=== PATIENT | male | born 1975 | race Caucasian/White ===

== ENCOUNTER 2018-05-29 15:30 | Emergency (ER) | payer OTHER ==
[~2018-05-29] VITALS: Ht 175.3 cm; Wt 86.2 kg
[2018-05-29] MEDS ORDERED: METO25 (15:39)
[2018-05-29] MEDS ORDERED: Ventolin/Prove6.7 GM (15:39)
[2018-05-29] MEDS ORDERED: Prinivil10 MG PO (15:39)
[2018-05-29] MEDS ORDERED: QVAR REDIHALE10.6 GM IH (15:40)
[2018-05-29 16:05] LABS: BASOPHILS ABSOLUTE AUTO 0.06 K/mm3 (0.00-0.23); BASOPHILS PERCENT AUTO 1 % (0-2); EOSINOPHILS ABSOLUTE AUTO 0.37 K/mm3 (0.00-0.68); EOSINOPHILS PERCENT AUTO 3 % (0-6); Hematocrit 43.6 % (37.0-53.0); Hemoglobin 15.3 g/dL (13.5-17.5); IMMATURE GRAN ABSOLUTE AUTO 0.08 K/mm3 (0.00-0.10); IMMATURE GRAN PERCENT AUTO 1 % (0-1); LYMPHOCYTES PERCENT AUTO 14 % (21-46); MONOCYTES ABSOLUTE AUTO 0.98 K/mm3 (0.16-1.47); MONOCYTES PERCENT AUTO 8 % (4-13); Mean Corpuscular HGB 34.3 pg (26.0-34.0); Mean Corpuscular HGB Conc 35.1 g/dL (31.5-36.5); Mean Corpuscular Volume 98 fL (80-100); Mean Platelet Volume 9.8 fL (9.1-12.4); NEUTROPHILS ABSOLUTE AUTO 9.35 K/mm3 (1.96-9.15); NEUTROPHILS PERCENT AUTO 75 % (41-73); Platelet Count 217 K/mm3 (150-400); RDW Coefficient Variation 11.7 % (11.7-14.2); RDW Standard Deviation 42.4 fL (35.1-46.3); Red Blood Cell Count 4.46 M/mm3 (4.30-5.90); White Blood Cell Count 12.54 K/mm3 (4.00-11.30)
[2018-05-29 16:21] LABS: Alanine Aminotransfer (ALT/SGP 35 U/L (12-78); Albumin, Blood 4.4 g/dL (3.4-5.0); Albumin/Globulin Ratio 1.3 (0.8-1.8); Alk Phos 99 U/L (50-136); Anion Gap 8 mmol/L (6-16); Aspartate Aminotrans (AST/SGOT 20 U/L (12-37); Bilirubin, Total 0.5 mg/dL (0.1-1.0); Blood Urea Nitrogen 24 mg/dL (8-24); Bun/Creatinine Ratio 25.4 (12.0-20.0); CO2, Blood 24 mmol/L (21-32); Calcium, Blood 9.2 mg/dL (8.5-10.1); Chloride, Blood 104 mmol/L (98-108); Creatinine, Blood 0.95 mg/dL (0.60-1.20); Globulin, Blood 3.4 g/dL (2.2-4.0); Glomerular Filtration Rate >60 (60-); Glucose, Blood 87 mg/dL (70-99); Potassium, Blood 3.9 mmol/L (3.5-5.5); Sodium, Blood 136 mmol/L (136-145); Total Protein, Blood 7.8 g/dL (6.4-8.2)
[2018-05-29 16:32] LABS: Source, Urine Clean Catch
[2018-05-29 16:42] LABS: Appearance, Urine Clear (Clear); Bilirubin, Urine Neg (Neg); Blood, Urine Neg (Neg); Color, Urine Yellow (P-Yellow); Glucose Qualitative, Urine Neg (Neg); Ketones, Urine Neg (Neg); Leukocyte Esterase, Urine Neg (Neg); Nitrite, Urine Neg (Neg); Protein, Urine Neg (Neg); Specific Gravity, Urine 1.015 (1.003-1.022); Urobilinogen, Urine NORM (Normal)
[2018-05-29] MEDS ORDERED: Percocet 5-3251 EACH PO (16:56)
[2018-05-29] MEDS ORDERED: Cipro500 MG PO (16:56)
[2018-05-29] MEDS ORDERED: Flagyl500 MG PO (16:56)
[2018-05-29] MEDS ORDERED: Zofran8 MG PO (16:56)
== END 2018-05-29 17:26 | disposition home or self-care (01) ==
LOC: ER 15:30
PROVIDERS: Emergency Medicine
DX: K57.32 Diverticulitis of large intestine without perforation or abscess without bleeding (principal); I10 Essential (primary) hypertension; J45.909 Unspecified asthma, uncomplicated; Z79.899 Other long term (current) drug therapy; Z79.51 Long term (current) use of inhaled steroids
CPT/HCPCS: 36415; 74177; 80053; 81003; 83690; 85025; 93005; 93010; 96374; 99284-25; J2405; Q9967

== ENCOUNTER → 2020-03-04 | Outpatient (CLI) | payer OTHER ==
[~2020-03-04] MED LIST: Cipro500 MG PO; Flagyl500 MG PO; METO25; Percocet 5-3251 EACH PO; Prinivil10 MG PO; QVAR REDIHALE10.6 GM IH; Ventolin/Prove6.7 GM; Zofran8 MG PO
== END | disposition home or self-care (01) ==
LOC: LAB 09:25 → LAB SHORT 09:25
DX: Z13.29 Encounter for screening for other suspected endocrine disorder (principal); R73.9 Hyperglycemia, unspecified
CPT/HCPCS: 83036; 84443

== ENCOUNTER → 2020-09-16 | Outpatient (CLI) | payer OTHER ==
[~2020-09-16] MED LIST changes: +AMOCLA875 PO; +MELOXICAM TAB 15M; +ONDA4ODT MM; +Roxicodone5 MG PO
[2020-09-17 16:11] LABS: ADENOVIRUS F 40/41 Not Detected (Not Detected); ASTROVIRUS Not Detected (Not Detected); C DIFFICILE TOXIN A/B Not Detected (Not Detected); CRYPTOSPORIDIUM Not Detected (Not Detected); CYCLOSPORA CAYETANENSIS Not Detected (Not Detected); ENTAMOEBA HISTOLYTICA Not Detected (Not Detected); ENTEROAGGREGATIVE E COLI Not Detected (Not Detected); ENTEROPATHOGENIC E COLI Not Detected (Not Detected); ENTEROTOXIGENIC E COLI Not Detected (Not Detected); GIARDIA LAMBLIA Not Detected (Not Detected); NOROVIRUS GI/GII Not Detected (Not Detected); PLESIOMONAS SHIGELLOIDES Not Detected (Not Detected); ROTAVIRUS A Not Detected (Not Detected); SALMONELLA Not Detected (Not Detected); SAPOVIRUS Not Detected (Not Detected); SHIGA-TOXIN-PRODUCING E COLI Not Detected (Not Detected); SHIGELLA/ENTEROINVASIVE E COLI Not Detected (Not Detected); VIBRIO Not Detected (Not Detected); VIBRIO CHOLERAE Not Detected (Not Detected); YERSINIA ENTEROCOLITICA Not Detected (Not Detected)
== END | disposition home or self-care (01) ==
LOC: LAB 08:19
PROVIDERS: Nurse Practitioner
DX: K52.9 Noninfective gastroenteritis and colitis, unspecified (principal)
CPT/HCPCS: 0097U; 83993

== ENCOUNTER 2021-08-18 16:17 | Emergency (ER) | payer SELFPAY ==
[~2021-08-18] VITALS: Ht 175.3 cm; Wt 88.0 kg
[2021-08-18 16:54] LABS: BASOPHILS ABSOLUTE AUTO 0.07 K/mm3 (0.00-0.23); BASOPHILS PERCENT AUTO 1 % (0-2); EOSINOPHILS ABSOLUTE AUTO 0.05 K/mm3 (0.00-0.68); EOSINOPHILS PERCENT AUTO 1 % (0-6); Hematocrit 41.9 % (37.0-53.0); Hemoglobin 14.9 g/dL (13.5-17.5); IMMATURE GRAN ABSOLUTE AUTO 0.05 K/mm3 (0.00-0.10); IMMATURE GRAN PERCENT AUTO 1 % (0-1); LYMPHOCYTES ABSOLUTE AUTO 0.86 K/mm3 (0.84-5.20); LYMPHOCYTES PERCENT AUTO 11 % (21-46); MONOCYTES ABSOLUTE AUTO 0.56 K/mm3 (0.16-1.47); MONOCYTES PERCENT AUTO 7 % (4-13); Mean Corpuscular HGB Conc 35.6 g/dL (31.5-36.5); Mean Corpuscular Volume 98 fL (80-100); Mean Platelet Volume 10.1 fL (9.1-12.4); NEUTROPHILS ABSOLUTE AUTO 6.26 K/mm3 (1.96-9.15); NEUTROPHILS PERCENT AUTO 80 % (41-73); Platelet Count 206 K/mm3 (150-400); RDW Coefficient Variation 12.1 % (11.7-14.2); RDW Standard Deviation 43.9 fL (35.1-46.3); Red Blood Cell Count 4.26 M/mm3 (4.30-5.90); White Blood Cell Count 7.85 K/mm3 (4.00-11.30)
[2021-08-18 17:19] LABS: Albumin/Globulin Ratio 0.9 (0.8-1.8); Bilirubin, Total 1.4 mg/dL (0.1-1.0); Bun/Creatinine Ratio 18.6 (12.0-20.0); Calcium, Blood 9.3 mg/dL (8.5-10.1); Creatinine, Blood 1.56 mg/dL (0.60-1.20); Globulin, Blood 4.4 g/dL (2.2-4.0); Potassium, Blood 4.1 mmol/L (3.5-5.5); Total Protein, Blood 8.4 g/dL (6.4-8.2)
[2021-08-18 17:47] LABS: Influenza A, PCR NEGATIVE (NEGATIVE); Influenza B, PCR NEGATIVE (NEGATIVE); Resp Syncytial Virus, PCR NEGATIVE (NEGATIVE); SARS-Cov-2 (COVID-19) PCR, MMC NEGATIVE (NEGATIVE)
[2021-08-18] MEDS ORDERED: AMOCLA875 PO (21:29)
[2021-08-18] MEDS ORDERED: OXYACE7.5T PO (21:29)
[2021-08-18] MEDS ORDERED: ONDA4ODT MM (21:29)
[2021-08-18] MEDS ORDERED: DICY20 PO (21:29)
== END 2021-08-18 22:20 | disposition home or self-care (01) ==
LOC: ER 16:17
PROVIDERS: Physician Assistant
DX: K52.9 Noninfective gastroenteritis and colitis, unspecified (principal); Z79.899 Other long term (current) drug therapy; F17.200 Nicotine dependence, unspecified, uncomplicated
CPT/HCPCS: 0241U; 36415; 74176; 80053; 83690; 85025; 96374; 96375; 99284-25; A9270; J2405; J3010; J7030

== ENCOUNTER 2021-12-06 00:10 | Inpatient (IN) | payer OTHER ==
[~2021-12-06] VITALS: Ht 175.3 cm; Wt 81.7 kg
[~2021-12-06 00:10] MED LIST changes: +DICY20 PO; +OXYACE7.5T PO
[2021-12-06] MEDS ORDERED: Ventolin/Prove6.7 GM INH (01:07)
[2021-12-06 01:10] LABS: BASOPHILS ABSOLUTE AUTO 0.07 K/mm3 (0.00-0.23); BASOPHILS PERCENT AUTO 1 % (0-2); EOSINOPHILS ABSOLUTE AUTO 0.02 K/mm3 (0.00-0.68); EOSINOPHILS PERCENT AUTO 0 % (0-6); Hematocrit 47.9 % (37.0-53.0); Hemoglobin 17.8 g/dL (13.5-17.5); IMMATURE GRAN ABSOLUTE AUTO 0.12 K/mm3 (0.00-0.10); IMMATURE GRAN PERCENT AUTO 1 % (0-1); LYMPHOCYTES ABSOLUTE AUTO 0.91 K/mm3 (0.84-5.20); LYMPHOCYTES PERCENT AUTO 6 % (21-46); MONOCYTES ABSOLUTE AUTO 1.31 K/mm3 (0.16-1.47); MONOCYTES PERCENT AUTO 9 % (4-13); Mean Corpuscular HGB 36.2 pg (26.0-34.0); Mean Corpuscular HGB Conc 37.2 g/dL (31.5-36.5); Mean Corpuscular Volume 97 fL (80-100); Mean Platelet Volume 9.9 fL (9.1-12.4); NEUTROPHILS ABSOLUTE AUTO 12.31 K/mm3 (1.96-9.15); NEUTROPHILS PERCENT AUTO 84 % (41-73); NRBC ABSOLUTE 0.05 K/mm3 (0.00-0.02); NRBC Auto 0.3 /100 WBC (0.0-0.2); Platelet Count 144 K/mm3 (150-400); RDW Coefficient Variation 13.5 % (11.7-14.2); RDW Standard Deviation 47.8 fL (35.1-46.3); Red Blood Cell Count 4.92 M/mm3 (4.30-5.90); White Blood Cell Count 14.74 K/mm3 (4.00-11.30)
[2021-12-06 01:28] LABS: Alanine Aminotransfer (ALT/SGP 125 U/L (12-78); Albumin, Blood 3.1 g/dL (3.4-5.0); Albumin/Globulin Ratio 0.7 (0.8-1.8); Alk Phos 285 U/L (50-136); Anion Gap 21 mmol/L (6-16); Aspartate Aminotrans (AST/SGOT 290 U/L (12-37); Bilirubin, Total 1.7 mg/dL (0.1-1.0); Blood Urea Nitrogen 2 mg/dL (8-24); Bun/Creatinine Ratio 1.9 (12.0-20.0); CO2, Blood 20 mmol/L (21-32); Calcium, Blood 7.9 mg/dL (8.5-10.1); Chloride, Blood 80 mmol/L (98-108); Creatinine, Blood 1.07 mg/dL (0.60-1.20); Globulin, Blood 4.2 g/dL (2.2-4.0); Glomerular Filtration Rate >60 (60-); Glucose, Blood 199 mg/dL (70-99); Magnesium, Blood 1.7 mg/dL (1.6-2.4); Potassium, Blood 2.8 mmol/L (3.5-5.5); Sodium, Blood 121 mmol/L (136-145); Total Protein, Blood 7.3 g/dL (6.4-8.2)
[2021-12-06 04:15] LABS: Amylase, Blood 42 U/L (25-115); Lactate Dehydrogenase (Ld),Bld 418 U/L (100-240)
[2021-12-06 06:16] LABS: BASOPHILS ABSOLUTE AUTO 0.04 K/mm3 (0.00-0.23); BASOPHILS PERCENT AUTO 0 % (0-2); EOSINOPHILS PERCENT AUTO 0 % (0-6); Hematocrit 45.3 % (37.0-53.0); Hemoglobin 16.8 g/dL (13.5-17.5); IMMATURE GRAN ABSOLUTE AUTO 0.07 K/mm3 (0.00-0.10); IMMATURE GRAN PERCENT AUTO 1 % (0-1); LYMPHOCYTES ABSOLUTE AUTO 0.89 K/mm3 (0.84-5.20); LYMPHOCYTES PERCENT AUTO 7 % (21-46); MONOCYTES ABSOLUTE AUTO 1.09 K/mm3 (0.16-1.47); MONOCYTES PERCENT AUTO 8 % (4-13); Mean Corpuscular HGB 35.9 pg (26.0-34.0); Mean Corpuscular HGB Conc 37.1 g/dL (31.5-36.5); Mean Corpuscular Volume 97 fL (80-100); Mean Platelet Volume 10.7 fL (9.1-12.4); NEUTROPHILS ABSOLUTE AUTO 11.44 K/mm3 (1.96-9.15); NEUTROPHILS PERCENT AUTO 85 % (41-73); NRBC ABSOLUTE 0.04 K/mm3 (0.00-0.02); NRBC Auto 0.3 /100 WBC (0.0-0.2); Platelet Count 124 K/mm3 (150-400); RDW Coefficient Variation 13.7 % (11.7-14.2); RDW Standard Deviation 48.5 fL (35.1-46.3); Red Blood Cell Count 4.68 M/mm3 (4.30-5.90); White Blood Cell Count 13.53 K/mm3 (4.00-11.30)
[2021-12-06 06:35] LABS: Alanine Aminotransfer (ALT/SGP 120 U/L (12-78); Albumin, Blood 2.8 g/dL (3.4-5.0); Albumin/Globulin Ratio 0.8 (0.8-1.8); Alk Phos 260 U/L (50-136); Anion Gap 17 mmol/L (6-16); Aspartate Aminotrans (AST/SGOT 307 U/L (12-37); Bilirubin, Total 2.4 mg/dL (0.1-1.0); Blood Urea Nitrogen 3 mg/dL (8-24); Bun/Creatinine Ratio 3.5 (12.0-20.0); CO2, Blood 24 mmol/L (21-32); Calcium, Blood 8.2 mg/dL (8.5-10.1); Chloride, Blood 84 mmol/L (98-108); Creatinine, Blood 0.85 mg/dL (0.60-1.20); Globulin, Blood 3.6 g/dL (2.2-4.0); Glomerular Filtration Rate >60 (60-); Glucose, Blood 144 mg/dL (70-99); Sodium, Blood 125 mmol/L (136-145); Total Protein, Blood 6.4 g/dL (6.4-8.2)
[2021-12-06 06:45] LABS: CHOL/HDL RATIO 7.4; Cholesterol 201 mg/dL (50-200); HDL Cholesterol 27 mg/dL (>39); LDL/HDL RATIO 4.6; Low Density Lipoprotein Chol 125 mg/dL (0-110); Triglycerides 244 mg/dL (30-160); Very Low Density Lipoprot Chol 48 mg/dL (6-32)
[2021-12-06 13:26] LABS: Source, Urine Clean Catch
[2021-12-06 13:31] LABS: Blood, Urine 1+ (Neg); Glucose Qualitative, Urine Neg (Neg); Ketones, Urine Neg (Neg); Leukocyte Esterase, Urine 1+ (Neg); Nitrite, Urine Neg (Neg); Protein, Urine 2+ (Neg); Urobilinogen, Urine 2+ (Normal)
[2021-12-06 13:45] LABS: Appearance, Urine Hazy (Clear); Bilirubin, Urine 1+ (Neg); Color, Urine Amber (P-Yellow)
[2021-12-06 13:47] LABS: Bacteria Mod /hpf; Squamous Epithelial Cells Few /hpf (Few)
[2021-12-06 13:57] LABS: U Amphetamine Screen Not Detected; U Barbituate Screen Not Detected; U Benzodiazapine Screen Not Detected; U Buprenorphine Screen Not Detected; U Cannabinoids Screen DETECTED; U Cocaine Screen Not Detected; U Methadone Screen Not Detected; U Methamphetamine Screen Not Detected; U Opiates Screen DETECTED; U Oxycodone Screen Not Detected; U Phencyclidine Screen Not Detected; U Propoxyphene Screen Not Detected
--- NOTE | 2021-12-06 16:04 | NUR ---
PATIENT IS A AND O 4X AND HAS PAIN MANAGED WELL WITH MORPHINE. PATIENT IS CURRENTLY NOT WITHDRAWLING FROM ETHO CIWA 0 LAST DRINK 1800 12/05/21
--- NOTE | 2021-12-06 16:27 | NUR ---
CALLED DR. PAZ KEMP PATIENT DRY EYES. ORDERED ARTIFICIAL 1-2 DROPS TEARS Q4H PRN DRY EYES.
[2021-12-07 05:33] LABS: Hematocrit 42.7 % (37.0-53.0); Hemoglobin 15.5 g/dL (13.5-17.5); Mean Corpuscular HGB 36.5 pg (26.0-34.0); Mean Corpuscular HGB Conc 36.3 g/dL (31.5-36.5); Mean Corpuscular Volume 101 fL (80-100); Mean Platelet Volume 9.6 fL (9.1-12.4); NRBC ABSOLUTE 0.02 K/mm3 (0.00-0.02); NRBC Auto 0.2 /100 WBC (0.0-0.2); Platelet Count 106 K/mm3 (150-400); RDW Standard Deviation 51.8 fL (35.1-46.3); Red Blood Cell Count 4.25 M/mm3 (4.30-5.90); White Blood Cell Count 8.78 K/mm3 (4.00-11.30)
[2021-12-07 06:13] LABS: Alanine Aminotransfer (ALT/SGP 98 U/L (12-78); Albumin, Blood 2.8 g/dL (3.4-5.0); Albumin/Globulin Ratio 0.8 (0.8-1.8); Alk Phos 221 U/L (50-136); Anion Gap 10 mmol/L (6-16); Aspartate Aminotrans (AST/SGOT 230 U/L (12-37); Bilirubin, Total 2.5 mg/dL (0.1-1.0); Blood Urea Nitrogen 7 mg/dL (8-24); Bun/Creatinine Ratio 14.3 (12.0-20.0); CO2, Blood 26 mmol/L (21-32); Calcium, Blood 7.9 mg/dL (8.5-10.1); Chloride, Blood 93 mmol/L (98-108); Creatinine, Blood 0.49 mg/dL (0.60-1.20); Globulin, Blood 3.4 g/dL (2.2-4.0); Glomerular Filtration Rate >60 (60-); Glucose, Blood 103 mg/dL (70-99); Potassium, Blood 2.9 mmol/L (3.5-5.5); Sodium, Blood 129 mmol/L (136-145); Total Protein, Blood 6.2 g/dL (6.4-8.2)
--- NOTE | 2021-12-07 06:34 | NUR ---
SHIFT SUMMARY ADMITTED FOR PANCREATITIS. AOX4. FOLLOWS DIRECTIONS. ROUGHLY HAD 20MIN OF SLEEP & HAS BEEN AWAKE ALL NIGHT. DAILY DRINKER, ASSESSING CIWAS, RANGING 6-15. HAS TREMORS TO BUE. RESTLESS, PACING IN RM, ANXIOUS ABOUT CURRENT HEALTH SITUATION. RAPID SPEECH, ASKS MANY QUESTIONS. MEDICATED c 25MG SCHEDULED LIBRIUM & PRN LIBRIUM & PT STILL UNABLE TO REST OR RELAX, MEDICATED c 1MG ATIVAN THIS AM. REPORTED 9/10 PAIN IN LUQ ABD & TENDERNESS c PALPATION, MEDICATED 1X c 5MG IV MORPHINE & PT REPORTED PAIN DECREASED TO 3/10. HAS BEEN NPO, REPORTS BELCHING & BLOATED FEELING, DENIES ANY N/V/D. STATES HE HOPES TO ADVANCE HIS DIET TODAY FOR HE FEELS HUNGRY. HAD DARK ORANGE COLOR URINE. REPORTS FEELING "WHEEZY" LS DIM c SCATTERED EXP WHEEZES, HX ASTHMA, ALBUTEROL INHALER GIVEN PER RT. SPO2 >90% ON RA. CALL LIGHT IN REACH. WCTM.
--- NOTE | 2021-12-07 10:43 | NUR ---
palliative care consult cancelled by provider.
--- NOTE | 2021-12-07 12:28 | NUR ---
PT GOT SEVERLY CONFUSED WHEN WOKEN UP THIS AM. PATIENT WAS A AND 0 TO ONLY SELF. PATIENT HAD HIGH CIWA OF 20. PATIENTS CIWA IS MORE MANAGED AT THIS TIME. PATIENT FOLLOWS COMMANDS AND IS REORIENTABLE. PATIENT NOW A AND 0 3X. PATIENTS ABDOMNIAL PAIN IS CONSISTANT BUT IMPROVED COMPARED TO YESTERDAY.
[2021-12-07 14:16] LABS: Potassium, Blood 3.2 mmol/L (3.5-5.5)
--- NOTE | 2021-12-08 05:12 | NUR ---
SHIFT SUMMARY CONTINUED Q4 CIWA ASSESSMENT DURING THIS SHIFT. PATIENT REMAINED A/OX4 THROUGHOUT SHIFT- PT EXPERIENCED INCREASED CONFUSION THIS MORNING POST ADMINISTRATION OF IV ATIVAN,SUCCESSFUL REOREINTING INDEPENDEDNT/AMBULATORY- REQUIRES OCCASSIONAL VERBAL QUE'S FOR IV TUBING POSITIONING WHEN AMBULATING.
[2021-12-08 05:36] LABS: BASOPHILS ABSOLUTE AUTO 0.06 K/mm3 (0.00-0.23); BASOPHILS PERCENT AUTO 1 % (0-2); EOSINOPHILS ABSOLUTE AUTO 0.09 K/mm3 (0.00-0.68); EOSINOPHILS PERCENT AUTO 1 % (0-6); Hematocrit 42.2 % (37.0-53.0); Hemoglobin 14.6 g/dL (13.5-17.5); IMMATURE GRAN ABSOLUTE AUTO 0.05 K/mm3 (0.00-0.10); IMMATURE GRAN PERCENT AUTO 1 % (0-1); LYMPHOCYTES PERCENT AUTO 14 % (21-46); MONOCYTES ABSOLUTE AUTO 0.58 K/mm3 (0.16-1.47); MONOCYTES PERCENT AUTO 7 % (4-13); Mean Corpuscular HGB 36.2 pg (26.0-34.0); Mean Corpuscular HGB Conc 34.6 g/dL (31.5-36.5); Mean Corpuscular Volume 105 fL (80-100); Mean Platelet Volume 10.2 fL (9.1-12.4); NEUTROPHILS ABSOLUTE AUTO 5.91 K/mm3 (1.96-9.15); NEUTROPHILS PERCENT AUTO 76 % (41-73); Platelet Count 112 K/mm3 (150-400); RDW Coefficient Variation 14.5 % (11.7-14.2); RDW Standard Deviation 56.7 fL (35.1-46.3); Red Blood Cell Count 4.03 M/mm3 (4.30-5.90); White Blood Cell Count 7.79 K/mm3 (4.00-11.30)
[2021-12-08 05:59] LABS: Alanine Aminotransfer (ALT/SGP 107 U/L (12-78); Albumin, Blood 2.7 g/dL (3.4-5.0); Albumin/Globulin Ratio 0.8 (0.8-1.8); Alk Phos 210 U/L (50-136); Anion Gap 11 mmol/L (6-16); Aspartate Aminotrans (AST/SGOT 327 U/L (12-37); Bilirubin, Total 2.8 mg/dL (0.1-1.0); Blood Urea Nitrogen 7 mg/dL (8-24); Bun/Creatinine Ratio 13.3 (12.0-20.0); CO2, Blood 24 mmol/L (21-32); Calcium, Blood 7.9 mg/dL (8.5-10.1); Chloride, Blood 101 mmol/L (98-108); Creatinine, Blood 0.53 mg/dL (0.60-1.20); Globulin, Blood 3.5 g/dL (2.2-4.0); Glomerular Filtration Rate >60 (60-); Glucose, Blood 70 mg/dL (70-99); Magnesium, Blood 1.8 mg/dL (1.6-2.4); Potassium, Blood 3.2 mmol/L (3.5-5.5); Sodium, Blood 136 mmol/L (136-145); Total Protein, Blood 6.2 g/dL (6.4-8.2)
--- NOTE | 2021-12-08 17:47 | NUR ---
SHIFT SUMMARY PATIENT IS ALERT AND ORIENTED X3 PLEASANT AND COOPERATIVE WITH CARE. FORGETFUL OF SITUATION AT TIMES. THE PATIENT WAS ABLE TO SLEEP A LOT OF THE AFTERNOON. LIBRIUM AND ATIVAN GIVEN PER MAR FOR ANXIETY AND WITHDRAWL. THE PATIENT HAS BEEN TOLERATING THE CLEAR LIQUID DIET THUS FAR. HIGHEST CIWA OF 11 THIS SHIFT. MEDICATED FOR PAIN X2. NO ACUTE CHANGES THIS SHIFT. VSS. SPOUSE AT BEDSIDE. THIS NURSE WILL CONTINUE TO CARE FOR THE PATIENT UNTIL SHIFT REPORT IS GIVEN TO ONCOMING NURSE.
[2021-12-09 05:23] LABS: Hematocrit 37.7 % (37.0-53.0); Hemoglobin 13.4 g/dL (13.5-17.5); Mean Corpuscular HGB 35.8 pg (26.0-34.0); Mean Corpuscular HGB Conc 35.5 g/dL (31.5-36.5); Mean Corpuscular Volume 101 fL (80-100); Mean Platelet Volume 10.2 fL (9.1-12.4); Platelet Count 128 K/mm3 (150-400); RDW Coefficient Variation 14.6 % (11.7-14.2); RDW Standard Deviation 55.1 fL (35.1-46.3); Red Blood Cell Count 3.74 M/mm3 (4.30-5.90); White Blood Cell Count 5.99 K/mm3 (4.00-11.30)
--- NOTE | 2021-12-09 05:40 | NUR ---
SHIFT SUMMARY PT IS A 46 Y/O MALE, ADMITTED FOR PANCREATITS WITH A HX OF ETOH ABUSE. PT IS A&O X 2 CONFUSED AND FORGETFUL AT TIMES. PT SLEPT INTERMITTENTLY THROUGH THE NIGHT, AND WANDERED OUT OF HIS ROOM ACTING CONFUSED MULTIPLE TIMES, UNCLEAR IF PT WAS DREAMING OR HALLUCINATING. CIWA AT 8, MEDICATED ONCE WITH PRN LIBRIUM. VITAL SIGNS STABLE. NO C/O ACUTE PAIN, NAUSEA OR SOB. NO ACUTE CHANGES IN PT CONDITION NOTED DURING THE NIGHT. WILL CONTINUE TO MONITOR AND TREAT PER EMAR UNTIL HAND OFF TO DAY SHIFT RN.
[2021-12-09 05:57] LABS: Alanine Aminotransfer (ALT/SGP 91 U/L (12-78); Albumin, Blood 2.3 g/dL (3.4-5.0); Albumin/Globulin Ratio 0.8 (0.8-1.8); Alk Phos 200 U/L (50-136); Anion Gap 7 mmol/L (6-16); Aspartate Aminotrans (AST/SGOT 258 U/L (12-37); Bilirubin, Total 2.8 mg/dL (0.1-1.0); Blood Urea Nitrogen 3 mg/dL (8-24); Bun/Creatinine Ratio 5.8 (12.0-20.0); CO2, Blood 26 mmol/L (21-32); Calcium, Blood 8.1 mg/dL (8.5-10.1); Chloride, Blood 104 mmol/L (98-108); Creatinine, Blood 0.51 mg/dL (0.60-1.20); Globulin, Blood 2.9 g/dL (2.2-4.0); Glomerular Filtration Rate >60 (60-); Glucose, Blood 102 mg/dL (70-99); Potassium, Blood 3.5 mmol/L (3.5-5.5); Sodium, Blood 137 mmol/L (136-145); Total Protein, Blood 5.2 g/dL (6.4-8.2)
[2021-12-09] MEDS ORDERED: CHLO10 PO (11:01)
[2021-12-09] MEDS ORDERED: PANT40 PO (11:01)
[2021-12-09] MEDS ORDERED: Seroquel Xr50 MG PO (11:02)
[2021-12-09] MEDS ORDERED: CEFD300 PO (11:02)
--- NOTE | 2021-12-09 11:41 | NUR ---
SHIFT SUMMARY PATIENT DISCHARGED HOME. DISCHARGE PAPERWORK REVIEWED WITH PATIENT AND ALL QUESTIONS ANSWERED. NEW MEDICATIONS REVIEWED WITH PATIENT BY PHARMACIST. PRESCRIPTIONS FAXED TO PTIENTS PREFERRED [facility] AND HARD SCRIPT FOR LIBRIUM GIVEN TO PATIENT.
== END 2021-12-09 11:43 | disposition home or self-care (01) | DRG 871 ==
LOC: ER 00:10 → MEDS 03:50 → ERHOLD 03:50 → MEDS 13:08 → ENPENDDIS 12-09 10:40 → MEDS 12-09 11:43
PROVIDERS: Family Medicine; Internal Medicine; Student in an Organized Health Care Education/Training Program; ADMIT Internal Medicine
PROC: HZ2ZZZZ Detoxification Services for Substance Abuse Treatment (ICD-10-PCS; principal; 2021-12-06)
DX: A41.9 Sepsis, unspecified organism (principal); K85.90 Acute pancreatitis without necrosis or infection, unspecified; G93.41 Metabolic encephalopathy; E87.2 Acidosis; E87.1 Hypo-osmolality and hyponatremia; F10.231 Alcohol dependence with withdrawal delirium; Z53.29 Procedure and treatment not carried out because of patient's decision for other reasons; K81.9 Cholecystitis, unspecified; E86.0 Dehydration; R45.1 Restlessness and agitation; F17.200 Nicotine dependence, unspecified, uncomplicated; I95.2 Hypotension due to drugs; E87.6 Hypokalemia; F10.20 Alcohol dependence, uncomplicated; K76.0 Fatty (change of) liver, not elsewhere classified; I10 Essential (primary) hypertension; J45.909 Unspecified asthma, uncomplicated; Z91.14 Patient's other noncompliance with medication regimen; Z98.890 Other specified postprocedural states; Z86.16 Personal history of COVID-19; Z90.49 Acquired absence of other specified parts of digestive tract; Z79.899 Other long term (current) drug therapy
CPT/HCPCS: 36415; 71045; 74177; 74181; 76705; 80051; 80053; 80061; 81001; 82150; 83605; 83615; 83690; 83735; 84145; 85025; 85027; 87086; 93005; 93010; 94640; 94664; 94760; 94762; 96365; 96366; 96372; 96375; 99285-25; A9270; C9113; J0696; J1650; J2060; J2270; J3475; J3480; J7030; J7050; J7120; Q9967

== ENCOUNTER 2021-12-25 21:53 | Inpatient (IN) | payer OTHER ==
[~2021-12-25] VITALS: Ht 175.3 cm; Wt 99.5 kg
[~2021-12-25 21:53] MED LIST changes: +CEFD300 PO; +CHLO10 PO; +PANT40 PO; +Seroquel Xr50 MG PO; +Ventolin/Prove6.7 GM INH
[2021-12-25 22:57] LABS: BASOPHILS ABSOLUTE AUTO 0.07 K/mm3 (0.00-0.23); BASOPHILS PERCENT AUTO 1 % (0-2); EOSINOPHILS ABSOLUTE AUTO 0.24 K/mm3 (0.00-0.68); EOSINOPHILS PERCENT AUTO 2 % (0-6); Hematocrit 40.4 % (37.0-53.0); Hemoglobin 13.9 g/dL (13.5-17.5); IMMATURE GRAN ABSOLUTE AUTO 0.06 K/mm3 (0.00-0.10); IMMATURE GRAN PERCENT AUTO 1 % (0-1); LYMPHOCYTES ABSOLUTE AUTO 1.25 K/mm3 (0.84-5.20); LYMPHOCYTES PERCENT AUTO 12 % (21-46); MONOCYTES ABSOLUTE AUTO 0.67 K/mm3 (0.16-1.47); MONOCYTES PERCENT AUTO 7 % (4-13); Mean Corpuscular HGB 35.6 pg (26.0-34.0); Mean Corpuscular HGB Conc 34.4 g/dL (31.5-36.5); Mean Corpuscular Volume 104 fL (80-100); Mean Platelet Volume 9.8 fL (9.1-12.4); NEUTROPHILS ABSOLUTE AUTO 8.06 K/mm3 (1.96-9.15); NEUTROPHILS PERCENT AUTO 78 % (41-73); Platelet Count 237 K/mm3 (150-400); RDW Standard Deviation 61.6 fL (35.1-46.3); White Blood Cell Count 10.35 K/mm3 (4.00-11.30)
[2021-12-25 23:15] LABS: Alanine Aminotransfer (ALT/SGP 76 U/L (12-78); Albumin, Blood 2.7 g/dL (3.4-5.0); Albumin/Globulin Ratio 0.7 (0.8-1.8); Alk Phos 361 U/L (50-136); Anion Gap 12 mmol/L (6-16); Aspartate Aminotrans (AST/SGOT 247 U/L (12-37); Blood Urea Nitrogen 1 mg/dL (8-24); CO2, Blood 22 mmol/L (21-32); Calcium, Blood 8.7 mg/dL (8.5-10.1); Chloride, Blood 108 mmol/L (98-108); Creatinine, Blood 0.34 mg/dL (0.60-1.20); Ethanol (Alcohol), Blood, Med 173 mg/dL; Globulin, Blood 3.8 g/dL (2.2-4.0); Glomerular Filtration Rate >60 (60-); Glucose, Blood 194 mg/dL (70-99); Potassium, Blood 3.6 mmol/L (3.5-5.5); Sodium, Blood 142 mmol/L (136-145); Total Protein, Blood 6.5 g/dL (6.4-8.2)
[2021-12-26 00:24] LABS: International Normalized Ratio 1.38; Prothrombin Time Results 14.2 Sec (9.7-11.5)
--- NOTE | 2021-12-26 07:45 | NUR ---
ASSUMED CARE: REPORT RECEIVED FROM SHABBIR Smith RN. ASSUMED CARE OF THIS PT AT APPROX 0700. ON ASSESSMENT, THE PT IS AWAKE, A&O TO SELF, FOLLOWING DIRECTIONS & PLACE. INTERMITTENTLY FORGETFUL, REPEATEDLY ASKING THE SAME QUESTIONS. CIWA 14 ON ASSESSMENT MOSTLY R/T TREMULOUSNESS & INCREASED ANXIETY. LS WHEEZING IN UPPER LOBES, PT STS USING AN INHALER & NEBULIZERS AT HOME. CURRENTLY ON RA W/ O2 SATS > 95%. MONITOR SHOWS ST W/ HR 110-120s, HTN 180s/150s. AM DOSE OF METOPROLOL GIVEN EARLY R/T THIS. PT STS TAKING ONLY 12.5 MG METOPROLOL TARTRATE AT HOME, 12.5 MG GIVEN BY THIS RN. WILL ADDRESS W/ PROVIDER. ABDOMEN IS SEVERELY DISTENDED & TENDER TO PALPATION, PT STS PAIN HAS DECREASED SINCE RECEIVING FENTANYL PER EMAR. PARACENTESIS PERFORMED IN ED WAS DIAGNOSTIC ONLY W/ SPECIMEN SENT TO LAB. PT VOIDS URINE W/O DIFFICULTY, URINAL AT BEDSIDE. SKIN CONDITION OVERALL INTACT, DIAPHORESIS INCREASED W/ ANXIETY. PT ABLE TO REPOSITION SELF PRN FOR COMFORT & TO MAINTAIN SKIN INTEGRITY. WILL CONTINUE TO MONITOR & UPDATE NEEDED.
--- NOTE | 2021-12-26 09:56 | NUR ---
DR Scooter ASH: PROVIDER AT BEDSIDE THIS AM TO EVAL PT. BD PROTOCOL ORDERED & METOPROLOL TARTRATE DOSE DECREASED TO 12.5 MG BID. PT OKAY FOR CLEAR LIQUID DIET TOLERATED W/ ABD PAIN. THIS RN HELD AM DOSE OF LOVENOX R/T POSSIBILITY OF PARACENTESIS TODAY & PT's HIGH PROTHROMBIN TIME AT BASELINE. THE PROVIDER IS AGREEABLE TO THIS, WOULD LIKE SCDs PLACED & PLANS TO ORDERS FOR A THERAPEUTIC PARACENTESIS THIS SHIFT.
[2021-12-26 12:04] LABS: BASOPHILS ABSOLUTE AUTO 0.07 K/mm3 (0.00-0.23); BASOPHILS PERCENT AUTO 1 % (0-2); EOSINOPHILS PERCENT AUTO 1 % (0-6); Hematocrit 38.2 % (37.0-53.0); Hemoglobin 13.2 g/dL (13.5-17.5); IMMATURE GRAN ABSOLUTE AUTO 0.05 K/mm3 (0.00-0.10); IMMATURE GRAN PERCENT AUTO 0 % (0-1); LYMPHOCYTES ABSOLUTE AUTO 0.72 K/mm3 (0.84-5.20); LYMPHOCYTES PERCENT AUTO 6 % (21-46); MONOCYTES ABSOLUTE AUTO 0.76 K/mm3 (0.16-1.47); MONOCYTES PERCENT AUTO 7 % (4-13); Mean Corpuscular HGB 36.1 pg (26.0-34.0); Mean Corpuscular HGB Conc 34.6 g/dL (31.5-36.5); Mean Corpuscular Volume 104 fL (80-100); Mean Platelet Volume 10.2 fL (9.1-12.4); NEUTROPHILS ABSOLUTE AUTO 9.94 K/mm3 (1.96-9.15); NEUTROPHILS PERCENT AUTO 85 % (41-73); NRBC ABSOLUTE 0.02 K/mm3 (0.00-0.02); NRBC Auto 0.2 /100 WBC (0.0-0.2); Platelet Count 179 K/mm3 (150-400); RDW Coefficient Variation 15.9 % (11.7-14.2); Red Blood Cell Count 3.66 M/mm3 (4.30-5.90); White Blood Cell Count 11.64 K/mm3 (4.00-11.30)
[2021-12-26 12:23] LABS: Alanine Aminotransfer (ALT/SGP 67 U/L (12-78); Albumin, Blood 2.5 g/dL (3.4-5.0); Albumin/Globulin Ratio 0.7 (0.8-1.8); Alk Phos 313 U/L (50-136); Anion Gap 11 mmol/L (6-16); Aspartate Aminotrans (AST/SGOT 229 U/L (12-37); Bilirubin, Total 1.4 mg/dL (0.1-1.0); Blood Urea Nitrogen 2 mg/dL (8-24); Bun/Creatinine Ratio 5.9 (12.0-20.0); CO2, Blood 25 mmol/L (21-32); Calcium, Blood 8.3 mg/dL (8.5-10.1); Chloride, Blood 105 mmol/L (98-108); Creatinine, Blood 0.34 mg/dL (0.60-1.20); Globulin, Blood 3.5 g/dL (2.2-4.0); Glomerular Filtration Rate >60 (60-); Glucose, Blood 127 mg/dL (70-99); Potassium, Blood 4.4 mmol/L (3.5-5.5); Sodium, Blood 141 mmol/L (136-145)
--- NOTE | 2021-12-26 12:30 | NUR ---
ABDOMINAL ULTRASOUND: BEDSIDE US PERFORMED & IT IS DETERMINED THAT THE PT DOES NOT HAVE ENOUGH ASCITED ACCUMULATED TO SAFELY PERFORM A PARACENTESIS AT THIS TIME. THIS RN HAS UPDATED DR CHAVIRA ON THIS ISSUE.
--- NOTE | 2021-12-26 17:20 | NUR ---
SHIFT SUMMARY: NO ACUTE CHANGES SINCE PRIOR UPDATES. PT REMAINS A&O, PLEASANT & COOPERATIVE, HAS BEEN LESS FORGETFUL THIS AFTERNOON. TREMULOUSNESS & ANXIETY ALSO IMPROVED SLIGHTLY. BED ALARM REMAINS ON THE PT IS SOMEWHAT IMPULSIVE & WANTS TO WALK AROUND THE ROOM LIKE HE "WOULD NORMALLY." LS ARE WHEEZING IN UPPER LOBES AT TIMES, NEBS & INHALER USED PRN TODAY. CURRENTLY ON RA W/ O2 SATS > 95%. MONITOR SHOWS SR-ST W/ HR 90-110s, HTN PERSISTANT W/ DBP 90-100s. PT TOLERATING SMALL AMNTS OF CLEAR LIQUID PO INTAKE W/ MINIMAL INCREASE TO ABD PAIN LEVEL, MEDS GIVEN PER EMAR. HE VOIDS W/O DIFFICULTY USING THE URINAL AT BEDSIDE. SKIN CONDITION OVERALL INTACT, PT REPOSITIONS SELF W/O DIFFICULTY FOR COMFORT & TO MAINTAIN SKIN INTEGRITY. WILL CONTINUE TO MONITOR & REPORT OFF TO ONCOMING RN.
--- NOTE | 2021-12-26 19:30 | NUR ---
Assumed care after report recv'd. assessment complete. lungs clear bilat. states legs and feet aching from edema. advised can try using SCDs for circulation, agrees to try. Continues with severe tremors. Mild anxiety.
--- NOTE | 2021-12-26 22:40 | NUR ---
Up to side of bed to urinate with assistance. becomes short of breath with audible wheezes. becomes very anxious stating "I need my inhaler, I can't breath" Inhaler used per eMAR. RT called to advise.
[2021-12-27 03:32] LABS: BASOPHILS ABSOLUTE AUTO 0.07 K/mm3 (0.00-0.23); BASOPHILS PERCENT AUTO 1 % (0-2); EOSINOPHILS ABSOLUTE AUTO 0.25 K/mm3 (0.00-0.68); EOSINOPHILS PERCENT AUTO 3 % (0-6); Hematocrit 36.2 % (37.0-53.0); Hemoglobin 12.7 g/dL (13.5-17.5); IMMATURE GRAN ABSOLUTE AUTO 0.04 K/mm3 (0.00-0.10); IMMATURE GRAN PERCENT AUTO 0 % (0-1); LYMPHOCYTES ABSOLUTE AUTO 1.24 K/mm3 (0.84-5.20); LYMPHOCYTES PERCENT AUTO 13 % (21-46); MONOCYTES ABSOLUTE AUTO 0.68 K/mm3 (0.16-1.47); MONOCYTES PERCENT AUTO 7 % (4-13); Mean Corpuscular HGB 36.6 pg (26.0-34.0); Mean Corpuscular HGB Conc 35.1 g/dL (31.5-36.5); Mean Corpuscular Volume 104 fL (80-100); Mean Platelet Volume 10.5 fL (9.1-12.4); NEUTROPHILS ABSOLUTE AUTO 7.03 K/mm3 (1.96-9.15); NEUTROPHILS PERCENT AUTO 76 % (41-73); NRBC ABSOLUTE 0.02 K/mm3 (0.00-0.02); NRBC Auto 0.2 /100 WBC (0.0-0.2); Platelet Count 178 K/mm3 (150-400); RDW Coefficient Variation 15.9 % (11.7-14.2); RDW Standard Deviation 61.1 fL (35.1-46.3); Red Blood Cell Count 3.47 M/mm3 (4.30-5.90); White Blood Cell Count 9.31 K/mm3 (4.00-11.30)
[2021-12-27 03:56] LABS: Alanine Aminotransfer (ALT/SGP 53 U/L (12-78); Albumin, Blood 2.2 g/dL (3.4-5.0); Albumin/Globulin Ratio 0.7 (0.8-1.8); Alk Phos 257 U/L (50-136); Anion Gap 8 mmol/L (6-16); Aspartate Aminotrans (AST/SGOT 172 U/L (12-37); Blood Urea Nitrogen 1 mg/dL (8-24); Bun/Creatinine Ratio 2.6 (12.0-20.0); CO2, Blood 27 mmol/L (21-32); Calcium, Blood 7.7 mg/dL (8.5-10.1); Chloride, Blood 103 mmol/L (98-108); Creatinine, Blood 0.39 mg/dL (0.60-1.20); Globulin, Blood 3.3 g/dL (2.2-4.0); Glomerular Filtration Rate >60 (60-); Glucose, Blood 118 mg/dL (70-99); Potassium, Blood 3.5 mmol/L (3.5-5.5); Sodium, Blood 138 mmol/L (136-145); Total Protein, Blood 5.5 g/dL (6.4-8.2)
--- NOTE | 2021-12-27 06:17 | NUR ---
tremors improving through night, medicated per eMAR for CIWA. Increase in edema to lower extremities, patient feels abd edema improved slightly. Pain improving, medicated as needed per eMAR. periods of brief disorientation upon waking but quickly reorients. assisted to bedside for urination and assisted with standing. more steady this am than at beginning of shift, still requires minimal assistance with walker for balance.
--- NOTE | 2021-12-27 08:30 | NUR ---
DR Layne ASH: PROVIDER AT BEDSIDE THIS AM TO EVAL PT. DISCUSSED PT's INCREASED SWELLING & "ACHING" TO BLE THIS AM. PROVIDER WILL REVIEW CHART & LIKELY ORDER LASIX FOR DIURESIS. HE ALSO STS THAT THE PT IS OKAY TO BE TRANSFERRED TO MEDICAL W/ TELE STATUS, R/T LOW CIWA SCORES & NO ATIVAN GIVEN DURING THE NIGHT.
--- NOTE | 2021-12-27 08:45 | NUR ---
ASSUMED CARE: REPORT RECEIVED FROM SHABBIR Smith RN. ASSUMED CARE OF THIS PT AT APPROX 0700. ON ASSESSMENT, THE PT IS AWAKE, A&O TO ALL, CALM & COOPERATIVE W/ CARE. CIWA SCORES LOW THROUGH NIGHT W/ NO PRN ATIVAN GIVEN. LS CLEAR, PT ON RA W/ O2 SATS > 95%. MONITOR SHOWS ST W/ HR 100s, HTN W/ SCHEDULED AM MEDS PER EMAR. PT TOLERATING SMALL-MOD AMNTS OF CLEAR LIQUID INTAKE W/ SLIGHT INCREASE IN ABD PAIN, MEDS PER EMAR. VOIDS URINE W/O DIFFICULTY USING URINAL. SKIN CONDITION OVERALL INTACT & PT ABLE TO REPOSITION SELF FOR COMFORT/ TO MAINTAIN SKIN INTEGRITY. WILL CONTINUE TO MONITOR & UPDATE NEEDED.
--- NOTE | 2021-12-27 17:38 | NUR ---
SHIFT SUMMARY: NO ACUTE CHANGES SINCE PRIOR UPDATES. PT REMAINS A&O, PLEASANT & COOPERATIVE. CIWA SCORES 3-4 TODAY W/ PT REQUESTING DOSE OF LIBRIUM x1, NO PRN ATIVAN GIVEN. LS CLEAR T/O, PT ON RA W/ O2 SATS > 95%. MONITOR SHOWS SR-ST W/ HR 90-100s, HTN INCREASED W/ EXERTION. PT TOLERATING MOD AMNTS OF CLEAR LIQUID PO INTAKE. STS INCREASED ABD PAIN IF EATS MEAL "TOO FAST." PRN MEDS PER EMAR FOR PAIN MANAGEMENT. DIET ORDER UPGRADED THIS EVENING TO LOW FAT AT PT REQUEST, PROVIDER OKAY W/ ADVANCING TOLERATED. VOIDS URINE W/O DIFFICULTY USING URINAL AT BEDSIDE. PT HAS DIURESED WELL AFTER LASIX ADMIN PER EMAR, STS HAVING SOME PAIN R/T SWELLING OF BILATERAL FEET/ TOES. SKIN CONDITION OVERALL INTACT, PT REPOSITIONS SELF FOR COMFORT & TO MAINTAIN SKIN INTEGRITY. WILL CONTINUE TO MONITOR & REPORT OFF TO ONCOMING RN.
--- NOTE | 2021-12-27 19:30 | NUR ---
Assumed care after report recieved. assessment complete, medicated for pain per eMAR. CIWA 3, states feeling much better today "except for pain and tightness from swelling"
[2021-12-28 03:45] LABS: BASOPHILS ABSOLUTE AUTO 0.05 K/mm3 (0.00-0.23); BASOPHILS PERCENT AUTO 1 % (0-2); EOSINOPHILS PERCENT AUTO 3 % (0-6); Hematocrit 38.2 % (37.0-53.0); Hemoglobin 13.1 g/dL (13.5-17.5); IMMATURE GRAN ABSOLUTE AUTO 0.05 K/mm3 (0.00-0.10); IMMATURE GRAN PERCENT AUTO 1 % (0-1); LYMPHOCYTES ABSOLUTE AUTO 1.52 K/mm3 (0.84-5.20); LYMPHOCYTES PERCENT AUTO 16 % (21-46); MONOCYTES ABSOLUTE AUTO 0.66 K/mm3 (0.16-1.47); MONOCYTES PERCENT AUTO 7 % (4-13); Mean Corpuscular HGB 35.7 pg (26.0-34.0); Mean Corpuscular HGB Conc 34.3 g/dL (31.5-36.5); Mean Corpuscular Volume 104 fL (80-100); Mean Platelet Volume 10.2 fL (9.1-12.4); NEUTROPHILS PERCENT AUTO 73 % (41-73); NRBC ABSOLUTE 0.02 K/mm3 (0.00-0.02); NRBC Auto 0.2 /100 WBC (0.0-0.2); Platelet Count 118 K/mm3 (150-400); RDW Coefficient Variation 15.4 % (11.7-14.2); Red Blood Cell Count 3.67 M/mm3 (4.30-5.90); White Blood Cell Count 9.48 K/mm3 (4.00-11.30)
[2021-12-28 04:26] LABS: Alanine Aminotransfer (ALT/SGP 50 U/L (12-78); Albumin, Blood 2.4 g/dL (3.4-5.0); Albumin/Globulin Ratio 0.7 (0.8-1.8); Alk Phos 270 U/L (50-136); Anion Gap 8 mmol/L (6-16); Aspartate Aminotrans (AST/SGOT 168 U/L (12-37); Bilirubin, Total 1.9 mg/dL (0.1-1.0); Blood Urea Nitrogen 2 mg/dL (8-24); Bun/Creatinine Ratio 4.5 (12.0-20.0); CO2, Blood 30 mmol/L (21-32); Calcium, Blood 7.6 mg/dL (8.5-10.1); Chloride, Blood 100 mmol/L (98-108); Creatinine, Blood 0.44 mg/dL (0.60-1.20); Globulin, Blood 3.4 g/dL (2.2-4.0); Glomerular Filtration Rate >60 (60-); Glucose, Blood 101 mg/dL (70-99); Potassium, Blood 3.4 mmol/L (3.5-5.5); Sodium, Blood 138 mmol/L (136-145); Total Protein, Blood 5.8 g/dL (6.4-8.2)
--- NOTE | 2021-12-28 06:03 | NUR ---
Awake most of night. Slept 30-45 mins at a time then would awake with disorientation and paranoia- thinking nursing staff was mad at him. Kept apologizing for upsetting nurses. Reassured that nurses were not upset and he done nothing wrong. During sleep at times would have short periods of apnea with drop of O2 sats to 89-90%. Bed alarm on, forgets to call for assist to get up to use urinal. Medicated as needed for CIWA scores.
--- NOTE | 2021-12-28 09:28 | NUR ---
ASSUMED CARE OF PT, REPORT RCV'D FROM SAIDA SHEA. PT ALERT AND ORIENTED, COOPERATIVE WITH CARE. PT SEVERELY ANXIOUS AND TREMULOUS THIS AM AND REQUESTING LIBRIUM AND ATIVAN. CIWA 9, MEDICATED PER EMAR. PT REPORTS ONGOING LEFT UPPER QUADRANT ABDOMINAL PAIN AFTER EATING, PT STATES THIS HAPPENS AT HOME WELL. 3+ PITTING EDEMA BILATERAL FEET. PT ABLE TO AMBULATE IN ROOM WITHOUT ASSISTANCE, STEADY ON FEET. SEE FULL SHIFT ASSESSMENT.
[2021-12-28] MEDS ORDERED: FURO40 PO (13:46)
[2021-12-28] MEDS ORDERED: POTA10T PO (13:48)
[2021-12-28] MEDS ORDERED: B-1100 M1 PO (13:49)
--- NOTE | 2021-12-28 14:25 | NUR ---
PT DISCHARGED HOME WITH HOME HEALTH AT 1420. PT'S GIRLFRIEND (DORENE) AT BEDSIDE. IV'S REMOVED. REVIEWED DISCHARGE PLAN AND PLAN FOR FOLLOW UP CARE. PT AND GIRLFRIEND DENY QUESTIONS. NEW MEDICATIONS REVIEWED AND FAXED TO [facility] HOME HEALTH REFERRAL FAXED. REVIEWED IMPORTANCE OF ABSTAINING FROM ALCOHOL ABUSE AND ENCOURAGED OUTPATIENT TREATMENT FOR PATIENT AND GIRLFRIEND.
== END 2021-12-28 14:32 | disposition home health service (06) | DRG 433 ==
LOC: ER 21:53 → ICUW 12-26 04:47 → ICUE 12-26 04:47
PROVIDERS: Family Medicine; Student in an Organized Health Care Education/Training Program; ADMIT Internal Medicine
PROC: 0W9G3ZZ Drainage of Peritoneal Cavity, Percutaneous Approach (ICD-10-PCS; principal; 2021-12-26)
PROC: HZ2ZZZZ Detoxification Services for Substance Abuse Treatment (ICD-10-PCS; 2021-12-26)
DX: K70.31 Alcoholic cirrhosis of liver with ascites (principal); F10.239 Alcohol dependence with withdrawal, unspecified; J45.909 Unspecified asthma, uncomplicated; R60.1 Generalized edema; F17.210 Nicotine dependence, cigarettes, uncomplicated; I10 Essential (primary) hypertension; Z86.16 Personal history of COVID-19; Z98.890 Other specified postprocedural states; Z79.899 Other long term (current) drug therapy; Z87.19 Personal history of other diseases of the digestive system; Z90.49 Acquired absence of other specified parts of digestive tract; Z71.41 Alcohol abuse counseling and surveillance of alcoholic
CPT/HCPCS: 36415; 49082; 71045; 74170; 76705; 80053; 83690; 83880; 85025; 85610; 88108; 88305; 93005; 93010; 94640; 94664; 96374; 96375; 96376; 99285-25; A9270; C9113; G0480; J0696; J1650; J1940; J2060; J2405; J3010; J3411; J3475; J7030; J7042; J7050; Q9967

== ENCOUNTER → 2021-12-29 | Outpatient (CLI) | payer OTHER ==
[~2021-12-29] MED LIST changes: +B-1100 M1 PO; +FURO40 PO; +POTA10T PO
[2021-12-29 17:58] LABS: BASOPHILS ABSOLUTE AUTO 0.04 K/mm3 (0.00-0.23); BASOPHILS PERCENT AUTO 0 % (0-2); EOSINOPHILS ABSOLUTE AUTO 0.22 K/mm3 (0.00-0.68); EOSINOPHILS PERCENT AUTO 2 % (0-6); Hematocrit 40.2 % (37.0-53.0); Hemoglobin 13.8 g/dL (13.5-17.5); IMMATURE GRAN ABSOLUTE AUTO 0.09 K/mm3 (0.00-0.10); IMMATURE GRAN PERCENT AUTO 1 % (0-1); LYMPHOCYTES ABSOLUTE AUTO 1.48 K/mm3 (0.84-5.20); LYMPHOCYTES PERCENT AUTO 16 % (21-46); MONOCYTES PERCENT AUTO 8 % (4-13); Mean Corpuscular HGB 35.6 pg (26.0-34.0); Mean Corpuscular HGB Conc 34.3 g/dL (31.5-36.5); Mean Corpuscular Volume 104 fL (80-100); Mean Platelet Volume 10.7 fL (9.1-12.4); NEUTROPHILS PERCENT AUTO 72 % (41-73); Platelet Count 126 K/mm3 (150-400); RDW Coefficient Variation 15.7 % (11.7-14.2); RDW Standard Deviation 59.6 fL (35.1-46.3); Red Blood Cell Count 3.88 M/mm3 (4.30-5.90); White Blood Cell Count 9.13 K/mm3 (4.00-11.30)
[2021-12-29 19:20] LABS: Alanine Aminotransfer (ALT/SGP 57 U/L (12-78); Albumin, Blood 2.7 g/dL (3.4-5.0); Albumin/Globulin Ratio 0.7 (0.8-1.8); Alk Phos 330 U/L (50-136); Anion Gap 9 mmol/L (6-16); Aspartate Aminotrans (AST/SGOT 177 U/L (12-37); Bilirubin, Total 1.7 mg/dL (0.1-1.0); Blood Urea Nitrogen 6 mg/dL (8-24); Bun/Creatinine Ratio 9.7 (12.0-20.0); CO2, Blood 30 mmol/L (21-32); Calcium, Blood 8.8 mg/dL (8.5-10.1); Chloride, Blood 101 mmol/L (98-108); Creatinine, Blood 0.62 mg/dL (0.60-1.20); Glomerular Filtration Rate >60 (60-); Glucose, Blood 93 mg/dL (70-99); Potassium, Blood 4.1 mmol/L (3.5-5.5); Sodium, Blood 140 mmol/L (136-145); Total Protein, Blood 6.7 g/dL (6.4-8.2)
== END | disposition home or self-care (01) ==
LOC: LAB SHORT 14:23
PROVIDERS: Family Medicine
DX: E88.09 Other disorders of plasma-protein metabolism, not elsewhere classified (principal); F10.20 Alcohol dependence, uncomplicated; R60.0 Localized edema
CPT/HCPCS: 80053; 84134; 85025

== ENCOUNTER → 2022-02-15 | Outpatient (CLI) | payer OTHER ==
[2022-02-15 15:57] LABS: BASOPHILS ABSOLUTE AUTO 0.04 K/mm3 (0.00-0.23); BASOPHILS PERCENT AUTO 1 % (0-2); EOSINOPHILS ABSOLUTE AUTO 0.32 K/mm3 (0.00-0.68); EOSINOPHILS PERCENT AUTO 4 % (0-6); Hematocrit 45.7 % (37.0-53.0); IMMATURE GRAN ABSOLUTE AUTO 0.02 K/mm3 (0.00-0.10); IMMATURE GRAN PERCENT AUTO 0 % (0-1); LYMPHOCYTES ABSOLUTE AUTO 1.72 K/mm3 (0.84-5.20); LYMPHOCYTES PERCENT AUTO 23 % (21-46); MONOCYTES ABSOLUTE AUTO 0.44 K/mm3 (0.16-1.47); MONOCYTES PERCENT AUTO 6 % (4-13); Mean Corpuscular Volume 100 fL (80-100); Mean Platelet Volume 10.6 fL (9.1-12.4); NEUTROPHILS ABSOLUTE AUTO 4.87 K/mm3 (1.96-9.15); NEUTROPHILS PERCENT AUTO 66 % (41-73); Platelet Count 229 K/mm3 (150-400); RDW Coefficient Variation 11.6 % (11.7-14.2); RDW Standard Deviation 42.7 fL (35.1-46.3); Red Blood Cell Count 4.57 M/mm3 (4.30-5.90); White Blood Cell Count 7.41 K/mm3 (4.00-11.30)
[2022-02-15 17:48] LABS: Albumin, Blood 4.2 g/dL (3.4-5.0); Albumin/Globulin Ratio 1.3 (0.8-1.8); Bilirubin, Total 0.4 mg/dL (0.1-1.0); Bun/Creatinine Ratio 14.3 (12.0-20.0); Creatinine, Blood 0.63 mg/dL (0.60-1.20); Globulin, Blood 3.2 g/dL (2.2-4.0); Potassium, Blood 4.2 mmol/L (3.5-5.5); Total Protein, Blood 7.4 g/dL (6.4-8.2)
== END | disposition home or self-care (01) ==
LOC: LAB SHORT 14:53
PROVIDERS: Nurse Practitioner
DX: F10.21 Alcohol dependence, in remission (principal)
CPT/HCPCS: 80053; 85025

== ENCOUNTER 2022-07-08 00:47 | Inpatient (IN) | payer OTHER ==
[~2022-07-08] VITALS: Ht 172.7 cm; Wt 59.0 kg
[~2022-07-08 00:47] MED LIST changes: +PAXLOVID 2X1501 EACH PO; +PROM25 PO; +ZOLOFT50 MG PO
[2022-07-08 01:23] LABS: Hematocrit 34.3 % (37.0-53.0); Mean Corpuscular Volume 93 fL (80-100); Mean Platelet Volume 10.8 fL (9.1-12.4); NRBC ABSOLUTE 0.12 K/mm3 (0.00-0.02); Platelet Count 70 K/mm3 (150-400); White Blood Cell Count 12.39 K/mm3 (4.00-11.30)
[2022-07-08 01:43] LABS: Magnesium, Blood 1.2 mg/dL (1.6-2.4)
[2022-07-08 01:47] LABS: Albumin, Blood 3.2 g/dL (3.4-5.0); Albumin/Globulin Ratio 0.9 (0.8-1.8); Bilirubin, Total 10.6 mg/dL (0.1-1.0); Bun/Creatinine Ratio 10.9 (12.0-20.0); Calcium, Blood 9.6 mg/dL (8.5-10.1); Creatinine, Blood 0.46 mg/dL (0.60-1.20); Globulin, Blood 3.4 g/dL (2.2-4.0); Hemoglobin 13.1 g/dL (13.5-17.5); Mean Corpuscular HGB 35.4 pg (26.0-34.0); Potassium, Blood 1.9 mmol/L (3.5-5.5); Total Protein, Blood 6.6 g/dL (6.4-8.2)
[2022-07-08 01:50] LABS: Mean Corpuscular HGB Conc 38.2 g/dL (31.5-36.5)
[2022-07-08 02:04] LABS: BAND PERCENT MAN 13 % (0-8); BASOPHILS PERCENT MAN 0 % (0-2); EOSINOPHILS PERCENT MAN 0 % (0-6); LYMPHOCYTES ABSOLUTE MAN 0.37 K/mm3 (0.84-5.20); LYMPHOCYTES PERCENT MAN 3 % (21-46); MONOCYTES ABSOLUTE MAN 0.74 K/mm3 (0.16-1.47); MONOCYTES PERCENT MAN 6 % (4-13); MYELOCYTE ABSOLUTE MAN 0.12 K/mm3 (0.00-0.00); MYELOCYTE PERCENT MAN 1 % (0-0); NEUTROPHILS ABSOLUTE MAN 11.15 K/mm3 (1.96-9.15); SEG NEUTROPHILS PERCENT MAN 77 % (41-73); TOTAL CELLS COUNTED 100
[2022-07-08] MEDS ORDERED: ZOLOFT50 MG PO (03:09)
[2022-07-08 04:40] LABS: International Normalized Ratio 2.39; Prothrombin Time Results 23.7 Sec (9.7-11.5)
[2022-07-08 04:41] LABS: Bun/Creatinine Ratio 11.8 (12.0-20.0); Calcium, Blood 9.4 mg/dL (8.5-10.1); Creatinine, Blood 0.34 mg/dL (0.60-1.20); Potassium, Blood 2.8 mmol/L (3.5-5.5)
[2022-07-08 05:39] LABS: Base Excess Venous 4.8 mmol/L; Bicarbonate Venous 28.6 mmol/L (24.0-30.0); PCO2 Venous 36.1 mmHg (38-42)
[2022-07-08 05:41] LABS: Source, Urine Foley catheter
[2022-07-08 05:47] LABS: Blood, Urine 3+ (Neg); Glucose Qualitative, Urine Neg (Neg); Ketones, Urine 2+ (Neg); Leukocyte Esterase, Urine 1+ (Neg); Nitrite, Urine Neg (Neg); Protein, Urine 2+ (Neg); Specific Gravity, Urine 1.025 (1.003-1.022); Urobilinogen, Urine 1+ (Normal)
[2022-07-08 05:55] LABS: Appearance, Urine Hazy (Clear); Bacteria Few /hpf; Bilirubin, Urine 1+ (Neg); Color, Urine Amber (P-Yellow); Squamous Epithelial Cells Rare /hpf (Few); White Blood Cells, Urine 0-2 /hpf (0-5)
[2022-07-08 05:56] LABS: Amorphous Mod (0-Heavy); Mucus Mod (0-Heavy)
[2022-07-08 05:57] LABS: U Amphetamine Screen Not Detected; U Barbituate Screen Not Detected; U Benzodiazapine Screen DETECTED; U Buprenorphine Screen Not Detected; U Cannabinoids Screen DETECTED; U Cocaine Screen Not Detected; U Methadone Screen Not Detected; U Methamphetamine Screen Not Detected; U Opiates Screen Not Detected; U Oxycodone Screen Not Detected; U Phencyclidine Screen Not Detected; U Propoxyphene Screen Not Detected
--- NOTE | 2022-07-08 07:30 | NUR ---
ASSUMED CARE: PT RESTING IN BED AT THIS TIME. SEIZURE PADS IN PLACE. SINUS TACH IN 130S WITH PACS NOTED. 4L VIA OXYMIZER IN PLACE. PT IS SOMNOLENT, MOANS AND GROANS WITH NOXIOUS STIMULI. NO ACUTE NEEDS AT THIS TIME.
[2022-07-08 08:39] LABS: Bun/Creatinine Ratio 16.6 (12.0-20.0); Calcium, Blood 9.4 mg/dL (8.5-10.1); Creatinine, Blood 0.36 mg/dL (0.60-1.20); Potassium, Blood 2.3 mmol/L (3.5-5.5)
--- NOTE | 2022-07-08 11:36 | NUR ---
DR ARAIZA CAME TO SEE PT AND MADE AWARE OF HR. STATES THAT DUE TO RHYTHM BEING SINUS TACH, STATES ELEVATED HR OK LONG LESS THAN 150. DR TO PLACE FURTHER ORDERS.
[2022-07-08 16:34] LABS: Bun/Creatinine Ratio 15.9 (12.0-20.0); Calcium, Blood 8.9 mg/dL (8.5-10.1); Creatinine, Blood 0.44 mg/dL (0.60-1.20); Potassium, Blood 2.5 mmol/L (3.5-5.5)
--- NOTE | 2022-07-08 16:49 | NUR ---
CALL TO DR ARAIZA TO RELAY BMS VS. LACTULOSE ADMINISTRATION. DR INSTRUCTS TO CONTINUE TRYING TO GIVE EVERY LACTULOSE DOSE REGARDLESS OF NUMBERS OF BMS. DR DECLINED STATUS CHANGE DUE TO WANING LOC AND HYPONATREMIA AND HYPOKALEMIA. REPLACEMENT FOR POTASSIUM ORDERED, NO ORDERS FOR SODIUM AT THIS TIME.
--- NOTE | 2022-07-08 18:36 | NUR ---
SHIFT SUMMARY: PT RESTING QUIETLY AT THIS TIME. CIWAS OF11 WITH LIBRIUM GIVEN X2 THIS SHIFT. MULTIPLE LOOSE STOOL TODAY. PT IS GRUMPY AND RESISTANT TO CARE BUT HR IMPROVED AT 100. 95% ON RA. NO ACUTE NEEDS AT THIS TIME.
--- NOTE | 2022-07-08 19:00 | NUR ---
Assumed care. Report received from law RN. Pt sleeping in bed ATT. On room air, KCL infusing. VS stable, no acute needs. Will continue to monitor.
[2022-07-09 03:59] LABS: Hematocrit 29.9 % (37.0-53.0); Mean Corpuscular Volume 92 fL (80-100); Mean Platelet Volume 11.3 fL (9.1-12.4); NRBC ABSOLUTE 0.06 K/mm3 (0.00-0.02); NRBC Auto 0.6 /100 WBC (0.0-0.2); Platelet Count 61 K/mm3 (150-400); RDW Coefficient Variation 15.6 % (11.7-14.2); RDW Standard Deviation 52.9 fL (35.1-46.3); Red Blood Cell Count 3.24 M/mm3 (4.30-5.90); White Blood Cell Count 9.46 K/mm3 (4.00-11.30)
[2022-07-09 04:33] LABS: Hemoglobin 11.3 g/dL (13.5-17.5); Mean Corpuscular HGB 34.9 pg (26.0-34.0); Mean Corpuscular HGB Conc 37.8 g/dL (31.5-36.5)
[2022-07-09 04:35] LABS: Magnesium, Blood 2.2 mg/dL (1.6-2.4)
[2022-07-09 04:39] LABS: Bun/Creatinine Ratio 22.8 (12.0-20.0); Calcium, Blood 8.1 mg/dL (8.5-10.1); Creatinine, Blood 0.35 mg/dL (0.60-1.20); Phosphorus, Blood 0.5 mg/dL (2.5-4.9)
[2022-07-09 04:46] LABS: BAND PERCENT MAN 14 % (0-8); BASOPHILS PERCENT MAN 0 % (0-2); EOSINOPHILS ABSOLUTE MAN 0.09 K/mm3 (0.00-0.68); EOSINOPHILS PERCENT MAN 1 % (0-6); LYMPHOCYTES ABSOLUTE MAN 0.47 K/mm3 (0.84-5.20); LYMPHOCYTES PERCENT MAN 5 % (21-46); MONOCYTES ABSOLUTE MAN 1.13 K/mm3 (0.16-1.47); MONOCYTES PERCENT MAN 12 % (4-13); NEUTROPHILS ABSOLUTE MAN 7.75 K/mm3 (1.96-9.15); SEG NEUTROPHILS PERCENT MAN 68 % (41-73); TOTAL CELLS COUNTED 100
--- NOTE | 2022-07-09 06:26 | NUR ---
Shift summary. Pt rested in bed throughout shift. Mentation improved, pt able to add serial numbers now and is oriented to surroundings/event. Still occasionally confused. On RA, vital signs stable. No acute events overnight, see assessments for further details. Will continue to monitor and report off to dayshift RN.
--- NOTE | 2022-07-09 07:50 | NUR ---
REPORT GIVEN TO U 11 NURSE.
--- NOTE | 2022-07-09 08:04 | NUR ---
PATIENT SUCCESSFULLY TRANSFERRED TO PCU. ALL BELONGINGS SENT WITH PATIENT.
--- NOTE | 2022-07-09 17:49 | NUR ---
SHIFT SUMMARY; ICU TRANSFER. A/A/OX3. CIWA'S 4-5, MEDICATED WITH LIBRIUM PER EMAR. UP TO COMMODE SEVERAL TIMES DURING SHIFT WITH SBA. TELEPHONE CALL TO DR. ARAIZA REGARDING SEVERAL WATERY STOOLS. LACTULOSE CHANGED TO BID AND WILL REPEAT AMMONIA IN AM. FORGETFUL REGARDING USE OF CALL LIGHT, BED ALARM ON. WILL CONTINUE TO MONITOR AND TREAT UNTIL CHANGE OF SHIFT.
[2022-07-10 04:59] LABS: Magnesium, Blood 1.6 mg/dL (1.6-2.4)
[2022-07-10 05:03] LABS: Albumin, Blood 2.7 g/dL (3.4-5.0); Albumin/Globulin Ratio 0.9 (0.8-1.8); Bun/Creatinine Ratio 20.4 (12.0-20.0); Calcium, Blood 8.6 mg/dL (8.5-10.1); Creatinine, Blood 0.49 mg/dL (0.60-1.20); Phosphorus, Blood 0.4 mg/dL (2.5-4.9); Potassium, Blood 3.3 mmol/L (3.5-5.5); Total Protein, Blood 5.7 g/dL (6.4-8.2)
[2022-07-10 05:12] LABS: BASOPHILS ABSOLUTE AUTO 0.04 K/mm3 (0.00-0.23); BASOPHILS PERCENT AUTO 0 % (0-2); EOSINOPHILS ABSOLUTE AUTO 0.11 K/mm3 (0.00-0.68); EOSINOPHILS PERCENT AUTO 1 % (0-6); Hematocrit 30.7 % (37.0-53.0); Hemoglobin 11.8 g/dL (13.5-17.5); IMMATURE GRAN PERCENT AUTO 3 % (0-1); LYMPHOCYTES ABSOLUTE AUTO 1.15 K/mm3 (0.84-5.20); LYMPHOCYTES PERCENT AUTO 11 % (21-46); MONOCYTES ABSOLUTE AUTO 0.91 K/mm3 (0.16-1.47); MONOCYTES PERCENT AUTO 9 % (4-13); Mean Corpuscular HGB 35.4 pg (26.0-34.0); Mean Corpuscular Volume 92 fL (80-100); Mean Platelet Volume 11.2 fL (9.1-12.4); NEUTROPHILS ABSOLUTE AUTO 7.86 K/mm3 (1.96-9.15); NEUTROPHILS PERCENT AUTO 76 % (41-73); NRBC ABSOLUTE 0.07 K/mm3 (0.00-0.02); NRBC Auto 0.7 /100 WBC (0.0-0.2); Platelet Count 76 K/mm3 (150-400); RDW Coefficient Variation 16.8 % (11.7-14.2); RDW Standard Deviation 56.7 fL (35.1-46.3); Red Blood Cell Count 3.33 M/mm3 (4.30-5.90); White Blood Cell Count 10.37 K/mm3 (4.00-11.30)
[2022-07-10 05:14] LABS: Mean Corpuscular HGB Conc 38.4 g/dL (31.5-36.5)
--- NOTE | 2022-07-10 06:35 | NUR ---
HYDROTHERAPIST SUMMARY PT HAS HAD INTERMITTENT AGITATION THROUGHOUT THE SHIFT. CIWAS WERE POSITIVE AT 0300 SO GIVEN LIBRIUM DUE TO INCREASED AGITATION WITH STAFF. PT BP HAS BEEN SLOWLY FALLING THROUGHOUT THE SHIFT. THIS RN ENCOURAGED PO FLUIDS BUT PT HAS HAD MANY WATERY BMS DUE TO LACTULOSE. PT CONFUSED AT TIMES BUT EASILY REORIENTED. PT IS NOT ON TELE. OXYGEN SATURATION HAS REMAINED HIGH 90S THROUGHOUT THE SHIFT. NO COMPLAINTS OF CHEST PAIN BUT DID HAVE SLIGHT BACK PAIN THAT IMPROVED AFTER LIBRIUM AND SLEEP. SKIN IS STILL JAUNDICED WITH SCATTERED BRUISES. PT REPORTS CONTINUED SHORTNESS OF BREATH AND REQUESTING FREQUENT NEBULIZER TREATMENTS.
[2022-07-10 16:02] LABS: Bun/Creatinine Ratio 12.4 (12.0-20.0); Calcium, Blood 8.8 mg/dL (8.5-10.1); Creatinine, Blood 0.48 mg/dL (0.60-1.20); Magnesium, Blood 1.5 mg/dL (1.6-2.4); Phosphorus, Blood 1.2 mg/dL (2.5-4.9); Potassium, Blood 3.9 mmol/L (3.5-5.5)
--- NOTE | 2022-07-10 18:16 | NUR ---
Shift Summary Pt A&Ox3, forgetful and impulsive at times. Pt aggitated at times. CIWA less than 8 t/o shift. Pt up with sba to bathroom with walker. Pt denies pain, chest pain/pressure, nausea, dizziness and numb/tingling t/o shift. Vss. Pt receiving kphos, folic acid and thiamin t/o shift. Pt reports sob, spo2 >90% on ra, requesting breathing treatment per rt. Other vss. No other acute changes noted during shift. Will continue to monitor.
[2022-07-11 05:12] LABS: Albumin, Blood 2.4 g/dL (3.4-5.0); Albumin/Globulin Ratio 0.9 (0.8-1.8); Bilirubin, Total 19.9 mg/dL (0.1-1.0); Bun/Creatinine Ratio 10.5 (12.0-20.0); Calcium, Blood 8.4 mg/dL (8.5-10.1); Creatinine, Blood 0.47 mg/dL (0.60-1.20); Globulin, Blood 2.6 g/dL (2.2-4.0); Phosphorus, Blood 0.7 mg/dL (2.5-4.9); Potassium, Blood 3.5 mmol/L (3.5-5.5)
--- NOTE | 2022-07-11 05:55 | NUR ---
SHIFT SUMMARY NO ACUTE EVENTS OVERNIGHT. PT ALERT AND ORIENTED X4. FORGETFUL AT TIMES. AFEBRILE. HR 90-100'S. BP STABLE. ON RA SATS OVER 99%. HAVING FREQUENT BM'S, PT IS ON LACTULOSE. DENIES PAIN OR DISCOMFORT. CIWAS < 7. ABLE TO AMBULATE ON OWN TO BATHROOM. IN BED RESTING WITH CALL ALARM AT SIDE, WILL CONTINUE TO MONITOR UNTIL REPORT GIVEN TO ONCOMING RN
--- NOTE | 2022-07-11 17:54 | NUR ---
Shift Summary Pt alert, oriented x3; forgetful with intermittent confusion when waking up. Pt denies pain, chest pain/pressure, nausea, dizziness and numb/tingling. Pt irritable at times. CIWA 6-7 t/o shift. Spo2 >90% on ra, pt reporting sob, coughing noted, pt requestions antibiotics states "my lungs are full of fluids", discussed with Dr Pugh, new order for chest xray. Pt sba to bathroom. Vss. No other acute chanes noted. Will continue to monitor until report given to oncoming rn.
--- NOTE | 2022-07-12 06:14 | NUR ---
SHIFT SUMMARY A/OX3, FORGETFUL AT TIMES. CIWA >6, AGITATED AT TIMES. HARSH, HACKING COUGH NOTED. VSS, NO ACUTE CHANGES AT THIS TIME. BED IN LOWEST POSITION WITH CALL LIGHT IN REACH. WILL CONTINUE TO MONITOR AND REPORT TO ONCOMING RN.
[2022-07-12 08:54] LABS: Albumin, Blood 2.4 g/dL (3.4-5.0); Albumin/Globulin Ratio 0.9 (0.8-1.8); Bilirubin, Total 20.8 mg/dL (0.1-1.0); Bun/Creatinine Ratio 9.8 (12.0-20.0); Calcium, Blood 8.3 mg/dL (8.5-10.1); Creatinine, Blood 0.41 mg/dL (0.60-1.20); Globulin, Blood 2.8 g/dL (2.2-4.0); Magnesium, Blood 2.1 mg/dL (1.6-2.4); Phosphorus, Blood 1.7 mg/dL (2.5-4.9); Potassium, Blood 4.3 mmol/L (3.5-5.5); Total Protein, Blood 5.2 g/dL (6.4-8.2)
[2022-07-12] MEDS ORDERED: K-Phos Origina500 MG PO (10:56)
--- NOTE | 2022-07-12 11:07 | NUR ---
Pt. is awake in bed and welcomes my visit. Pt. is unsettled by the impact of his brochitis, but verbalizes great interest in his spiritual care. Pt.is pleasant and displays evidence of engagement and trust. Discussed issues of renee, beleif and recovery with the Pt. Prayed with Pt. Pt. verbalized gratitude for the spiritual care he has received, as well as all the medical team at [facility].
--- NOTE | 2022-07-12 12:25 | NUR ---
SHIFT SUMMARY- VSS. INDEPENDANT IN ROOM. SOB REQUESTED NEB TREATMENT, SEE EMAR. PT PLEASANT. APPETITE OK. FAMILY AT BEDSIDE. CALL LIGHT IN REACH.
--- NOTE | 2022-07-12 12:28 | NUR ---
D/C AT 12:20. EDUCATED PT OF D/C PAPERWORK. PAPER WORK IN HAND. ALL BELONGINGS IN ACCOUNTED FOR AND IN HAND. TRANSPORTED VIA WHEELCHAIR TO [facility] WITH GIRLFRIEND.
== END 2022-07-12 12:27 | disposition home or self-care (01) | DRG 100 ==
LOC: ER 00:47 → PCU 00:48 → ERHOLD 00:48 → ICUW 06:00 → PCU 07-09 08:11
PROVIDERS: Emergency Medicine; Internal Medicine; Student in an Organized Health Care Education/Training Program; ADMIT Internal Medicine
DX: G40.509 Epileptic seizures related to external causes, not intractable, without status epilepticus (principal); G92.8 Other toxic encephalopathy; F10.239 Alcohol dependence with withdrawal, unspecified; E87.21 Acute metabolic acidosis; E87.1 Hypo-osmolality and hyponatremia; E87.3 Alkalosis; E87.0 Hyperosmolality and hypernatremia; K70.10 Alcoholic hepatitis without ascites; E87.6 Hypokalemia; E83.39 Other disorders of phosphorus metabolism; E83.42 Hypomagnesemia; K76.82 Hepatic encephalopathy; Z86.16 Personal history of COVID-19; D69.6 Thrombocytopenia, unspecified; D63.8 Anemia in other chronic diseases classified elsewhere; I10 Essential (primary) hypertension; J45.909 Unspecified asthma, uncomplicated; Z98.890 Other specified postprocedural states; Z87.891 Personal history of nicotine dependence; Z20.822 Contact with and (suspected) exposure to COVID-19
CPT/HCPCS: 36415; 71045; 80048; 80053; 81001; 82140; 82803; 83735; 84100; 84295; 85025; 85610; 93005; 93010; 94640; 94664; 94760; 94762; 96365; 96366; 96367; 96375; 96376; 99285-25; A9270; G0480; J1885; J1953; J2060; J3411; J3475; J3480; J7030; J7050; J7060

== ENCOUNTER 2022-07-24 03:12 | Inpatient (IN) | payer OTHER ==
[~2022-07-24] VITALS: Ht 175.3 cm; Wt 93.5 kg
[~2022-07-24 03:12] MED LIST changes: +K-Phos Origina500 MG PO
[2022-07-24 03:48] LABS: EOSINOPHILS ABSOLUTE AUTO 0.17 K/mm3 (0.00-0.68); EOSINOPHILS PERCENT AUTO 1 % (0-6); Hematocrit 35.7 % (37.0-53.0); Hemoglobin 12.9 g/dL (13.5-17.5); IMMATURE GRAN ABSOLUTE AUTO 2.09 K/mm3 (0.00-0.10); IMMATURE GRAN PERCENT AUTO 7 % (0-1); LYMPHOCYTES ABSOLUTE AUTO 1.32 K/mm3 (0.84-5.20); LYMPHOCYTES PERCENT AUTO 4 % (21-46); MONOCYTES ABSOLUTE AUTO 1.42 K/mm3 (0.16-1.47); MONOCYTES PERCENT AUTO 5 % (4-13); Mean Corpuscular HGB 35.8 pg (26.0-34.0); Mean Corpuscular HGB Conc 36.1 g/dL (31.5-36.5); Mean Corpuscular Volume 99 fL (80-100); Mean Platelet Volume 10.2 fL (9.1-12.4); NEUTROPHILS ABSOLUTE AUTO 24.77 K/mm3 (1.96-9.15); NEUTROPHILS PERCENT AUTO 83 % (41-73); NRBC ABSOLUTE 0.02 K/mm3 (0.00-0.02); NRBC Auto 0.1 /100 WBC (0.0-0.2); Platelet Count 270 K/mm3 (150-400); RDW Coefficient Variation 24.1 % (11.7-14.2); RDW Standard Deviation 88.8 fL (35.1-46.3)
[2022-07-24 03:49] LABS: BASOPHILS ABSOLUTE AUTO 0.03 K/mm3 (0.00-0.23); BASOPHILS PERCENT AUTO 0 % (0-2)
[2022-07-24 04:18] LABS: Albumin, Blood 2.1 g/dL (3.4-5.0); Albumin/Globulin Ratio 0.5 (0.8-1.8); Bilirubin, Total 24.4 mg/dL (0.1-1.0); Bun/Creatinine Ratio 27.4 (12.0-20.0); Creatinine, Blood 0.69 mg/dL (0.60-1.20); Globulin, Blood 4.1 g/dL (2.2-4.0); Potassium, Blood 4.5 mmol/L (3.5-5.5); Total Protein, Blood 6.2 g/dL (6.4-8.2)
[2022-07-24 04:19] LABS: BAND PERCENT MAN 7 % (0-8); BASOPHILS PERCENT MAN 0 % (0-2); EOSINOPHILS PERCENT MAN 0 % (0-6); LYMPHOCYTES ABSOLUTE MAN 1.49 K/mm3 (0.84-5.20); LYMPHOCYTES PERCENT MAN 5 % (21-46); METAMYELOCYTE ABSOLUTE MAN 0.59 K/mm3 (0.00-0.00); METAMYELOCYTE PERCENT MAN 2 % (0-0); MONOCYTES ABSOLUTE MAN 1.19 K/mm3 (0.16-1.47); MONOCYTES PERCENT MAN 4 % (4-13); MYELOCYTE ABSOLUTE MAN 0.89 K/mm3 (0.00-0.00); MYELOCYTE PERCENT MAN 3 % (0-0); NEUTROPHILS ABSOLUTE MAN 25.62 K/mm3 (1.96-9.15); SEG NEUTROPHILS PERCENT MAN 79 % (41-73); TOTAL CELLS COUNTED 100
[2022-07-24 05:04] LABS: Base Excess Venous -3.5 mmol/L; Bicarbonate Venous 21.5 mmol/L (24.0-30.0); pH Blood Venous 7.37 (7.34-7.37)
[2022-07-24 07:16] LABS: International Normalized Ratio 2.07; Prothrombin Time Results 20.7 Sec (9.7-11.5)
--- NOTE | 2022-07-24 19:28 | NUR ---
ADMISSION/SHIFT SUMMARY: PT IS NEW ADMIT, ARRIVING FROM ER APPROX 0730 THIS AM. PT ARRIVES A&Ox4, TRANSFERS SELF W/SBA FROM [place] TO BED, GENERALIZED WEAKNESS AND JAUNDICE NOTED. PT REPORTS NO ALCOHOL CONSUMPTION OVER THE PAST MONTH EXCEPT LAST NOC WHEN HE WANTED TO FEEL BETTER AND DECIDED TO TAKE "5 SHOTS OF RUM", FELT NO IMPROVEMENT OF HIS SOB AND DECIDED TO COME IN FOR EVALUATION. PT TREMULOUS WITH ARMS EXTENDED, MILD ANXIETY NOTED, NO OTHER SIGNS/SYMPTOMS OF ETOH WITHDRAWAL, CIWAs SCORED Q4H. PT MAINTAINS O2 SATS >95% ON RA, COUGH PRODUCTIV OF GREEN/YELLOW SPUTUM, SAMPLE SENT TO LAB. SIN TACH ON MONITOR, RATE 90s-110, PT DENIES CP. PT REPORTS DIARRHEA AT HOME, NO BM THIS SHIFT, ABDOMEN DISTENDED W/GENERALIZED TENDERNESS UPON PALPATION. PT TOLERATING HEPATIC DIET THUS FAR. REPORT HAS BEEN GIVEN TO SAIDA WELLS TO ASSUME CARE OF PT.
[2022-07-25 03:56] LABS: BASOPHILS ABSOLUTE AUTO 0.08 K/mm3 (0.00-0.23); BASOPHILS PERCENT AUTO 0 % (0-2); EOSINOPHILS PERCENT AUTO 0 % (0-6); Hematocrit 32.2 % (37.0-53.0); Hemoglobin 11.6 g/dL (13.5-17.5); IMMATURE GRAN ABSOLUTE AUTO 1.03 K/mm3 (0.00-0.10); IMMATURE GRAN PERCENT AUTO 5 % (0-1); LYMPHOCYTES ABSOLUTE AUTO 0.83 K/mm3 (0.84-5.20); LYMPHOCYTES PERCENT AUTO 4 % (21-46); MONOCYTES ABSOLUTE AUTO 0.61 K/mm3 (0.16-1.47); MONOCYTES PERCENT AUTO 3 % (4-13); Mean Corpuscular HGB 35.6 pg (26.0-34.0); Mean Corpuscular Volume 99 fL (80-100); Mean Platelet Volume 9.7 fL (9.1-12.4); NEUTROPHILS ABSOLUTE AUTO 20.29 K/mm3 (1.96-9.15); NEUTROPHILS PERCENT AUTO 89 % (41-73); Platelet Count 203 K/mm3 (150-400); RDW Coefficient Variation 23.3 % (11.7-14.2); RDW Standard Deviation 85.6 fL (35.1-46.3); Red Blood Cell Count 3.26 M/mm3 (4.30-5.90); White Blood Cell Count 22.84 K/mm3 (4.00-11.30)
[2022-07-25 04:11] LABS: International Normalized Ratio 2.7; Prothrombin Time Results 26.6 Sec (9.7-11.5)
[2022-07-25 04:25] LABS: Albumin/Globulin Ratio 0.6 (0.8-1.8); Bilirubin, Total 19.9 mg/dL (0.1-1.0); Bun/Creatinine Ratio 31.6 (12.0-20.0); Calcium, Blood 8.6 mg/dL (8.5-10.1); Creatinine, Blood 0.73 mg/dL (0.60-1.20); Globulin, Blood 3.6 g/dL (2.2-4.0); Magnesium, Blood 1.9 mg/dL (1.6-2.4); Potassium, Blood 4.2 mmol/L (3.5-5.5); Total Protein, Blood 5.6 g/dL (6.4-8.2)
--- NOTE | 2022-07-25 11:46 | NUR ---
CARE ASSUMPTION: ASSUMED CARE OF PT APPROX 0700 THIS AM AFTER RECEIVING REPORT FROM SAIDA WELLS. NO ACUTE EVENTS OVERNIGHT. PT IS A&Ox4, TREMORS APPEAR BETTER COMPARED TO YESTERDAY AND PT C/O MILD SKIN ITCHINESS. PT DID RECEIVE ONE DOSE LIBRIUM DURING THE NIGHT, STATES IT HELPED WITH HIS ITCHINESS. 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 SR ON MONITOR, RATE 85-90s. VSS. PT TOLERATING PO INTAKE, GOOD FLUID INTAKE, JAUNDICED W/DISTENDED ABDOMEN. PT REPORTS IMPROVED OVERALL FEELING. AT THIS TIME, PT RESTING IN BED. CALL LIGHT WITHIN REACH. WILL CONTINUE TO MONITOR AND TREAT ACCORDINGLY.
--- NOTE | 2022-07-25 18:27 | NUR ---
SHIFT SUMMARY: PT MEDICATED W/ONE DOSE LIBRIUM FOR C/O INCREASED AGITATION AND ITCHINESS, REPORTS IMPROVEMENT TO SYMPTOMS. PT UP OOB, USING FWW W/SBA AND GAIT BELT, AMBULATES AROUND ROOM, TOLERATES WELL. NO ACUTE CHANGES COMPARED TO THIS AM'S NOTE. AT THIS TIME, PT RESTING QUIETLY IN ROOM W/CALL LIGHT IN REACH. WILL CONTINUE TO MONITOR AND TREAT ACCORDINGLY UNTIL CHANGE OF SHIFT.
--- NOTE | 2022-07-26 01:10 | NUR ---
CARE ASSUMPTION: PATIENT CALLS APPROPRIATELY TO USE URINAL AT BEDSIDE OR FOR CARES. DENIES SOB OR CHEST PAIN AT REST. DEMONSTRATES UNDERSTANDING OF WHEN TO USE ALBUTEROL AT BEDSIDE. ANXIOUS AND TREMULOUS AT BASELINE, A&O X4. IV PATENT. BED LOW WITH CALL LIGHT IN REACH.
[2022-07-26 04:30] LABS: Hematocrit 33.3 % (37.0-53.0); Hemoglobin 11.9 g/dL (13.5-17.5); Mean Corpuscular HGB 35.5 pg (26.0-34.0); Mean Corpuscular HGB Conc 35.7 g/dL (31.5-36.5); Mean Corpuscular Volume 99 fL (80-100); Mean Platelet Volume 9.9 fL (9.1-12.4); Platelet Count 250 K/mm3 (150-400); RDW Coefficient Variation 23.2 % (11.7-14.2); RDW Standard Deviation 85.1 fL (35.1-46.3); Red Blood Cell Count 3.35 M/mm3 (4.30-5.90); White Blood Cell Count 25.54 K/mm3 (4.00-11.30)
[2022-07-26 04:52] LABS: International Normalized Ratio 2.02; Prothrombin Time Results 20.3 Sec (9.7-11.5)
[2022-07-26 04:59] LABS: Albumin/Globulin Ratio 0.5 (0.8-1.8); Bilirubin, Total 16.7 mg/dL (0.1-1.0); Bun/Creatinine Ratio 41.9 (12.0-20.0); Creatinine, Blood 0.67 mg/dL (0.60-1.20); Globulin, Blood 3.9 g/dL (2.2-4.0); Potassium, Blood 4.6 mmol/L (3.5-5.5); Total Protein, Blood 5.9 g/dL (6.4-8.2)
--- NOTE | 2022-07-26 05:14 | NUR ---
SHIFT SUMMARY: PATIENT VS WNL ON RA, DENIES CHEST PAIN/SOB/N/V/D. PATIENT IS EXTREMELY JAUNDICE WITH DISTENDED ABDOMEN. LUNGS CLEAR T/O AND O2 SAT 98-100% ON RA. PATIENT REGULARLY USES ALBUTEROL INHALER AT BEDSIDE, REQUESTS NEBULIZER TREATMENTS, AND EXPRESSES FRUSTRATION THAT HE IS NO LONGER RECEIVING SOLU-MEDROL IV AND HAS NOT RECEIVED A "HYDRATION PACK." BELIEVES HE SHOULD BE RECEIVING ALL MEDS VIA IV DESPITE EDUCATION FROM MULTIPLE STAFF MEMBERS. PATIENT HAS NO VISIBLE SIGNS OF RESPIRATORY DISTRESS OR DIFFICULTY BREATHING AND CLEARS SECRETIONS WITHOUT ASSISTANCE. PATIENT IS PARTICULAR ABOUT ROUTINES AND SCHEDULES REGARDING MEDS AND HOW TO USE URINAL. PATIENT COOPERATIVE WITH CARE AND EXPRESSES SATISFACTION WITH HIS HOSPITAL EXPERIENCE THUS FAR. PLAN IS FOR OT/PT TO WORK WITH HIM THIS AM AND D/C HOME. BED LOW WITH CALL LIGHT IN REACH. WILL CONTINUE TO MONITOR UNTIL REPORT TO DAY SHIFT RN.
[2022-07-26] MEDS ORDERED: Calcium Carbon500 MG PO (12:09)
[2022-07-26] MEDS ORDERED: MULVITA PO (12:10)
[2022-07-26] MEDS ORDERED: IPRAT-ALBUT 0.5-3 ML INH (12:10)
[2022-07-26] MEDS ORDERED: AZIT500 PO (12:11)
[2022-07-26] MEDS ORDERED: LACT10SY PO (12:12)
--- NOTE | 2022-07-26 14:39 | NUR ---
PT DISCHARGED FROM UNIT. IV REMOVED. DISCHARGE INSTRUCTIONS REVIEWED WITH PT AND GIRLFRIEND. MEDICATIONS FAXED TO PHARMACY. PT ADVISED ON FOLLOW UP APT, BLOOD WORK, AND USE OF A CANE AT HOME. PT LEFT UNIT VIA WHEEL CHAIR. GIRLFRIEND TO DRIVE HOME
== END 2022-07-26 14:15 | disposition home or self-care (01) | DRG 872 ==
LOC: ER 03:12 → PCU 06:43
PROVIDERS: Emergency Medicine; Internal Medicine; ADMIT Internal Medicine
PROC: 3E03329 Introduction of Other Anti-infective into Peripheral Vein, Percutaneous Approach (ICD-10-PCS; principal; 2022-07-24)
PROC: HZ2ZZZZ Detoxification Services for Substance Abuse Treatment (ICD-10-PCS; 2022-07-24)
DX: A41.9 Sepsis, unspecified organism (principal); J45.902 Unspecified asthma with status asthmaticus; D68.9 Coagulation defect, unspecified; E87.1 Hypo-osmolality and hyponatremia; F10.239 Alcohol dependence with withdrawal, unspecified; K70.10 Alcoholic hepatitis without ascites; K76.0 Fatty (change of) liver, not elsewhere classified; E86.0 Dehydration; F17.210 Nicotine dependence, cigarettes, uncomplicated; K70.30 Alcoholic cirrhosis of liver without ascites; J20.9 Acute bronchitis, unspecified; I10 Essential (primary) hypertension; Z98.890 Other specified postprocedural states; Z79.899 Other long term (current) drug therapy
CPT/HCPCS: 36415; 71045; 80053; 82140; 82803; 83605; 83735; 83880; 84100; 84484; 85025; 85027; 85610; 87040; 87070; 87205; 93005; 93010; 93971; 94640; 94644; 94645; 94660; 94664; 94760; 94762; 96374; 96375; 97116; 97162; 97165; 97530; 99285-25; A9270; J0456; J0696; J2405; J2930; J3010; J7030; J7050; P9047

== ENCOUNTER 2022-09-03 21:37 | Emergency (ER) | payer OTHER ==
[~2022-09-03 21:37] MED LIST changes: +AZIT500 PO; +Calcium Carbon500 MG PO; +IPRAT-ALBUT 0.5-3 ML INH; +LACT10SY PO; +MULVITA PO
[2022-09-03] MEDS ORDERED: Prednisone20 MG PO (23:33)
== END 2022-09-04 00:32 | disposition home or self-care (01) ==
DX: J10.1 Influenza due to other identified influenza virus with other respiratory manifestations (principal); J45.901 Unspecified asthma with (acute) exacerbation; Z20.822 Contact with and (suspected) exposure to COVID-19; Z79.899 Other long term (current) drug therapy; Z87.891 Personal history of nicotine dependence

== ENCOUNTER 2022-09-28 07:06 | Emergency (ER) | payer OTHER ==
[~2022-09-28] VITALS: Ht 175.3 cm; Wt 79.4 kg
[~2022-09-28 07:06] MED LIST changes: +CHLO25 PO; +Prednisone20 MG PO
[2022-09-28] MEDS ORDERED: PRED20 PO (08:33)
== END 2022-09-28 08:49 | disposition home or self-care (01) ==
LOC: ER 07:06
DX: J45.901 Unspecified asthma with (acute) exacerbation (principal); I10 Essential (primary) hypertension; Z87.891 Personal history of nicotine dependence; Z79.899 Other long term (current) drug therapy
CPT/HCPCS: J7512

== ENCOUNTER 2022-09-29 09:15 | Inpatient (IN) | payer OTHER ==
[~2022-09-29] VITALS: Ht 175.3 cm; Wt 72.0 kg
[~2022-09-29 09:15] MED LIST changes: +PRED20 PO
[2022-09-29 10:21] LABS: BASOPHILS ABSOLUTE AUTO 0.01 K/mm3 (0.00-0.23); BASOPHILS PERCENT AUTO 0 % (0-2); EOSINOPHILS ABSOLUTE AUTO 0.03 K/mm3 (0.00-0.68); EOSINOPHILS PERCENT AUTO 1 % (0-6); Hematocrit 36.9 % (37.0-53.0); Hemoglobin 13.5 g/dL (13.5-17.5); IMMATURE GRAN ABSOLUTE AUTO 0.01 K/mm3 (0.00-0.10); IMMATURE GRAN PERCENT AUTO 0 % (0-1); LYMPHOCYTES ABSOLUTE AUTO 0.37 K/mm3 (0.84-5.20); LYMPHOCYTES PERCENT AUTO 10 % (21-46); MONOCYTES PERCENT AUTO 11 % (4-13); Mean Corpuscular HGB 34.7 pg (26.0-34.0); Mean Corpuscular HGB Conc 36.6 g/dL (31.5-36.5); Mean Corpuscular Volume 95 fL (80-100); Mean Platelet Volume 10.9 fL (9.1-12.4); NEUTROPHILS ABSOLUTE AUTO 2.93 K/mm3 (1.96-9.15); NEUTROPHILS PERCENT AUTO 78 % (41-73); RDW Coefficient Variation 12.7 % (11.7-14.2); Red Blood Cell Count 3.89 M/mm3 (4.30-5.90); White Blood Cell Count 3.75 K/mm3 (4.00-11.30)
[2022-09-29 10:38] LABS: Platelet Count 46 K/mm3 (150-400)
[2022-09-29 10:39] LABS: Albumin, Blood 3.8 g/dL (3.4-5.0); Bilirubin, Total 2.5 mg/dL (0.1-1.0); Bun/Creatinine Ratio 14.3 (12.0-20.0); Calcium, Blood 8.4 mg/dL (8.5-10.1); Creatinine, Blood 0.42 mg/dL (0.60-1.20); Globulin, Blood 3.8 g/dL (2.2-4.0); Potassium, Blood 3.3 mmol/L (3.5-5.5); Total Protein, Blood 7.6 g/dL (6.4-8.2)
[2022-09-29 22:19] LABS: Hematocrit 38.3 % (37.0-53.0); Hemoglobin 13.5 g/dL (13.5-17.5)
--- NOTE | 2022-09-29 22:28 | NUR ---
[facility] DAYSHIFT RN, UPON BEDSIDE REPORT IT WAS NOTED THAT PT WAS QUITE TREMULOUS AND ANXIOUS BUT WAS ALERT AND ORIENTED AND WAS CALLING APPROPRIATELY. PT NAUSEA WITH INTRACTABLE VOMITTING. PT MEDICATED FOR NAUSEA AND CIWA'S SYMPTOMS SHORTLY AFTER SHIFT CHANGE, AND NEW IV WAS IN THE PROCESS OF BEING PLACED FOR IVF FLUIDS AND FOR IV MEDICATIONS. PT HAD BEEN RESTING IN BED OFF AND ON PRIOR TO THE INCIDENT AND HAD BEEN BACK AND FORTH TO THE BATHROOM WITH THE ASSISTANCE OF THE AID. AROUND 2154 RAPID RESPONSE CALLED ON PT, PT HAD JUST BEEN UP TO THE BATHROOM WITH THE ASSISTANCE OF THE AID AND HAD BEEN ASSISTED BACK TO BED. PT WAS COMPLETELY AWAKE AND ORIENTED. PT WAS SITTING ON THE SIDE OF THE BED WITH AN EMESIS BAG IN HIS HAND. I HAD NOTIFIED PT THAT I HAD PLACED A CALL TO DR. GR TO GET IV ATIVAN ORDERED FOR HIS CIWA SYMPTOMS AFTER NEW IV HAD BEEN PLACED BY ENGINEERING SYSTEMS ANALYST CLOSE TO 2099, BUT HAD NOT YET HEARD BACK FROM DR. GR. THERE WAS NO IV ATIVAN ORDERED OR ETOH PROTOCOL ORDERED ASIDE FROM THE LIBRIUM. PT HAD ONE 25 MG LIBRIUM TAB DURING . IV IMMEDIATELY WENT BAD AFTER RECEIVING IV ZOFRAN. PT HAD JUST BEEN MEDICATED WITH 50 MG OF PO LIBRIUM AROUND 2025 AND HE WAS ABLE TO KEEP IT DOWN WITHOUT NAUSEA AND VOMITTING WHILE WAITING FOR THE IV TO BE PLACED. I HAD BENEFITS ASSISTANT PLACE SEIZURE PADS ON BOTH SIDE RAILS OUT OF PRECAUTION. I REASSESSED PT AFTER LIBRIUM DOSE AND I WAS STILL WAITING FOR DR. GR TO CALL ME BACK FOR MORE ETOH PROTOCOL ORDERS WHEN I HEARD A LOUD THUD. I RAN INTO THE ROOM TO FIND PT FACE FORWARD ON THE FLOOR WITH HIS HEAD IN THE TRASH CAN. PT WAS UNRESPONSIVE AND WAS HAVING AN ACTIVE SEIZURE. I IMMEDIATLY PRESSED THE PANIC BUTTON TO [place] MORE STAFF FOR ASSISTANCE AND GOT PT ONTO HIS SIDE. PT WAS BLEEDING AND HAD A SMALL CUT ON HIS LEFT EYEBROW AND NOSE. AT 2154 RAPID RESPONSE CALLED, TEAM ARRIVED AROUND 2155. DR GR ARRIVED ALSO, AND WAS GIVEN SBAR. I NOTIFIED HIM THAT I HAD TRIED TO REACH HIM PRIOR TO INCIDENT BUT HAD NOT RECEIVED A CALL BACK. DURING THE FALL PT HAD PULLED THE SECOND IV THAT HAD BEEN PLACED. AIRWAY KEPT CLEAR DURING SEIZURE, SEIZURE APPROXIMATELY 3 MINUTES. PT CAME TO, AND VITALS WERE OBTAINED. SKIN ASSISTED FOR INJURIES. PT ASSISTED BACK TO BED, AND PICTURES OF WOUNDS WERE TAKEN. 2207 LABS DRAWN 2209 IV PLACED AND 1 MG IV ATIVAN GIVEN 2214 TRANSFER TO IMAGING FOR HEAD CT 2220 REPORT CALLED AND GIVEN TO FOOD SAFETY DIRECTORSAIDA WILSON 2224 TRANSFER TO ICU, PCU STATUS, BELONGINGS IN PLACE.
--- NOTE | 2022-09-29 23:20 | NUR ---
HAIR CATHERINE NOTIFIED OF CHANGE IN MEDICAL STATUS AND IN HOUSE TRANSFER FROM MEDICAL FLOOR 330 TO ICU 12 ON 09/29 @ 9617 BY SHOAIB GARZA R.N.
--- NOTE | 2022-09-30 00:09 | NUR ---
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 PT HAS HAD FALL THAT PRECEDED TRANSFER. SEIZURE ACTIVITY AT THE TIME. PT ARRIVES AT 2230. FORGETFUL AND NOTED TO BE IMPULSIVE. STATED HE NEEDED TO HAVE BM AND URINATE. PIVOT TRANSFERRED PT TO BEDSIDE COMMODE. PT VERY WEAK AND NEEDED MAX SUPPORT. HAD ONLY SMALL SPOT OF LOOSE BM. NOT ENOUGH TO SEND SAMPLE TO LAB. PT HAS BEEN MEDICATED WITH LIBRIUM 50 MG AND 2 MG ATIVAN FOR ESCALATING CIWA. VERY SHAKY. NAUSEAS WHEREAS HE HAS MEDIUM VOLUMED EMESIS. PT WILL BE HELD NPO UNTIL NAUSEA DISAPATES AND WILL BEGIN SLOWLY. BED ALARM ACTIVATED ON BED. CURTAINS TO ROOM OPEN TO ALLOW DIRECT VISUALIZATION TO PT. WILL REVIEW CHART AND PLAN OF CARE FOR THIS PT. HIGH FALL RISK.
[2022-09-30 05:28] LABS: BASOPHILS ABSOLUTE AUTO 0.01 K/mm3 (0.00-0.23); BASOPHILS PERCENT AUTO 0 % (0-2); EOSINOPHILS ABSOLUTE AUTO 0.03 K/mm3 (0.00-0.68); EOSINOPHILS PERCENT AUTO 1 % (0-6); Hematocrit 34.2 % (37.0-53.0); Hemoglobin 12.4 g/dL (13.5-17.5); IMMATURE GRAN ABSOLUTE AUTO 0.02 K/mm3 (0.00-0.10); IMMATURE GRAN PERCENT AUTO 0 % (0-1); LYMPHOCYTES ABSOLUTE AUTO 0.69 K/mm3 (0.84-5.20); LYMPHOCYTES PERCENT AUTO 11 % (21-46); MONOCYTES ABSOLUTE AUTO 0.78 K/mm3 (0.16-1.47); MONOCYTES PERCENT AUTO 12 % (4-13); Mean Corpuscular HGB 34.7 pg (26.0-34.0); Mean Corpuscular HGB Conc 36.3 g/dL (31.5-36.5); Mean Corpuscular Volume 96 fL (80-100); Mean Platelet Volume 11.1 fL (9.1-12.4); NEUTROPHILS ABSOLUTE AUTO 4.93 K/mm3 (1.96-9.15); NEUTROPHILS PERCENT AUTO 76 % (41-73); RDW Coefficient Variation 12.8 % (11.7-14.2); RDW Standard Deviation 45.3 fL (35.1-46.3); Red Blood Cell Count 3.57 M/mm3 (4.30-5.90); White Blood Cell Count 6.46 K/mm3 (4.00-11.30)
[2022-09-30 05:38] LABS: Platelet Count 29 K/mm3 (150-400)
[2022-09-30 05:55] LABS: Albumin, Blood 3.5 g/dL (3.4-5.0); Albumin/Globulin Ratio 1.1 (0.8-1.8); Bilirubin, Total 4.4 mg/dL (0.1-1.0); Bun/Creatinine Ratio 16.9 (12.0-20.0); Calcium, Blood 8.2 mg/dL (8.5-10.1); Creatinine, Blood 0.47 mg/dL (0.60-1.20); Globulin, Blood 3.1 g/dL (2.2-4.0); Magnesium, Blood 1.5 mg/dL (1.6-2.4); Potassium, Blood 2.5 mmol/L (3.5-5.5); Total Protein, Blood 6.6 g/dL (6.4-8.2)
--- NOTE | 2022-09-30 06:19 | NUR ---
PT HAS BEEN REQUESTING LIBRIUM FREQUENTLY AND MEDICATION FOR NAUSEA. ALSO REQUESTING WATER AND FOOD. TEACHING DONE ON IMPLICATION AND APPLICATION OF LIBRIUM MEDICATION. ALSO EATING AND DRINKING WHEN HE HAS BEEN NAUSEATED. HAS HAD ONE EMESIS OF APPROX 150 ML. PT HAS BEEN ABLE TO VOID PER URINAL. HAS HAD ISSUES WITH LOGISTICS WHILE USING URINAL AND HAS SPILLED. NO S/S SEIZURES NOTED SINCE BEING BROUGHT TO UNIT. PT'S GIRLFRIEND HAS CALLED AND CHECKED ON PT. UPDATE GIVEN. CALL MADE TO DR WOLFF CONCERNING AM LABS. ORDERS RECEIVED. WILL CONTINUE TO MONITOR PT, AND WILL REPORT OFF TO ONCOMING RN.
--- NOTE | 2022-09-30 07:15 | NUR ---
Assumed care at 0700. Report received from nightshift RN. Pt sleeping in bed ATT, seizure pads in place. VS stable, no acute needs. Continue to monitor.
--- NOTE | 2022-09-30 10:00 | NUR ---
Assumed care of pt from Iván CINTRON. He is currently on 20 mEq K+ in D5 1/5 NS at 100 ml/hr, replacing Mg w/ 2 grams IV, replacing K+ w/ 60 mEq IV and 60 mEq PO. Pt has a Powerglide in left upper arm, seizure pads on the bed, currently A&Ox4 and drowsy. Will recheck K+ and Mg once IV gtt completed.
--- NOTE | 2022-09-30 14:46 | NUR ---
Transferred care of patient to Favian CINTRON at approximately 0945. VS stable at time of transfer.
[2022-09-30 16:35] LABS: Magnesium, Blood 1.6 mg/dL (1.6-2.4); Potassium, Blood 3.6 mmol/L (3.5-5.5)
--- NOTE | 2022-09-30 17:55 | NUR ---
Pt was drowsy in the morning but remained A&Ox5, GCS 15 throughout the shift w/ no seizure activity noted. Pt received 60 mEq K+ PO which had to be dissolved in water and 60 mEq K+ gtt. Admin Librium PO during the shift. Repeat labs showed a K+ 3.6, Mg 1.6 and Phos 1.9. Spoke w/ Dr. Malhotra and he ordered 1 G Mag and Potassium Phos replacment.
[2022-10-01 03:43] LABS: Hematocrit 35.5 % (37.0-53.0); Hemoglobin 12.8 g/dL (13.5-17.5); Mean Corpuscular HGB Conc 36.1 g/dL (31.5-36.5); Mean Corpuscular Volume 97 fL (80-100); RDW Coefficient Variation 12.3 % (11.7-14.2); RDW Standard Deviation 44.1 fL (35.1-46.3); Red Blood Cell Count 3.66 M/mm3 (4.30-5.90)
[2022-10-01 03:50] LABS: Mean Platelet Volume 13.6 fL (9.1-12.4); Platelet Count 23 K/mm3 (150-400)
[2022-10-01 03:59] LABS: Albumin, Blood 3.1 g/dL (3.4-5.0); Anion Gap 7 mmol/L (6-16); Blood Urea Nitrogen 4 mg/dL (8-24); Bun/Creatinine Ratio 8.8 (12.0-20.0); CO2, Blood 27 mmol/L (21-32); Chloride, Blood 104 mmol/L (98-108); Creatinine, Blood 0.46 mg/dL (0.60-1.20); Glomerular Filtration Rate 131 (60-); Glucose, Blood 138 mg/dL (70-99); Magnesium, Blood 1.7 mg/dL (1.6-2.4); Phosphorus, Blood 2.3 mg/dL (2.5-4.9); Potassium, Blood 3.3 mmol/L (3.5-5.5); Sodium, Blood 138 mmol/L (136-145)
--- NOTE | 2022-10-01 06:31 | NUR ---
PATIENT AOX3-4. CIWA SCORE IMPROVING OVERNIGHT, 0400 SCORE OF 4. SR WITH STABLE BP. ROOM AIR. 2 BOWEL MOVEMENTS OVERNIGHT.
--- NOTE | 2022-10-01 08:03 | NUR ---
Assumed for of this p[t at 0700, he is resting comfrotably in bed w/ K+ 20 mEq in D5 1/2 NS gtt @ 100 ml/hr and K-Phose infusing at 85 ml/hr for electrolyte replacement. No seizure activity overnight. Pt appears to have better balance and strength this morning, compared to yesterday.
--- NOTE | 2022-10-01 11:16 | NUR ---
Pt decided to sign out AMA this morning. He spoke w/ the physician, Dr. Malhotra. He was advised that doing so could lead to complications, such as additional seizures, status epilepticus, anoxic brain injury or . He advised that he "could take care of it himself, on his couch." Pt junior arrived and RN removed IV. Pt changed into hospital provided paper gowns and ambulated from the ICU with his girlfriend and Gustavo RN to outside the hospital, where the junior would pick him up in her car and drive him home.
== END 2022-10-01 11:30 | disposition left against medical advice (07) | DRG 894 ==
LOC: ER 09:15 → MEDS 09:16 → ICUW 22:15
PROVIDERS: Emergency Medicine; Family Medicine; Internal Medicine; ADMIT Internal Medicine
PROC: HZ2ZZZZ Detoxification Services for Substance Abuse Treatment (ICD-10-PCS; principal; 2022-09-30)
DX: F10.239 Alcohol dependence with withdrawal, unspecified (principal); K76.7 Hepatorenal syndrome; Z28.21 Immunization not carried out because of patient refusal; I10 Essential (primary) hypertension; K70.30 Alcoholic cirrhosis of liver without ascites; J45.909 Unspecified asthma, uncomplicated; R56.9 Unspecified convulsions; D69.6 Thrombocytopenia, unspecified; Z98.890 Other specified postprocedural states; Z87.891 Personal history of nicotine dependence; Z79.52 Long term (current) use of systemic steroids; Z79.899 Other long term (current) drug therapy; Y90.8 Blood alcohol level of 240 mg/100 ml or more
CPT/HCPCS: 36415; 70450; 71045; 80053; 80069; 82140; 83735; 84100; 84132; 85014; 85018; 85025; 85027; 94640; 94760; 96361; 96365; 96367; 96375; 96376; 97116; 97161; 99285-25; A9270; C1751; G0378; G0480; J2060; J2405; J3411; J3475; J3480; J7060

== ENCOUNTER 2023-03-25 14:02 | Emergency (ER) | payer OTHER ==
[~2023-03-25] VITALS: Ht 180.3 cm; Wt 72.6 kg
[~2023-03-25 14:02] MED LIST changes: +GABA300 PO; -IPRAT-ALBUT 0.5-3 ML INH; +IPRAT-ALBUT 0.5-3 ML NEB; +KLOR-CON 1010 ME1 PO; +ONDA4ODT SL; +SERT50 PO
[2023-03-25 14:16] VITALS: BP 142/85
[2023-03-25] MEDS ORDERED: CYCL10 PO (15:51)
== END 2023-03-25 16:19 | disposition home or self-care (01) ==
LOC: ER 14:02
DX: S29.012A Strain of muscle and tendon of back wall of thorax, initial encounter (principal); V49.9XXA Car occupant (driver) (passenger) injured in unspecified traffic accident, initial encounter; Z79.899 Other long term (current) drug therapy; I10 Essential (primary) hypertension; J45.909 Unspecified asthma, uncomplicated; Z87.891 Personal history of nicotine dependence
CPT/HCPCS: 72070; 72100; 73030; 96372; 99284-25; A9270; J1885

== ENCOUNTER 2023-04-26 12:22 | Emergency (ER) | payer OTHER ==
[~2023-04-26] VITALS: Ht 165.1 cm; Wt 72.6 kg
[~2023-04-26 12:22] MED LIST changes: +CYCL10 PO
[2023-04-26 13:11] LABS: BASOPHILS ABSOLUTE AUTO 0.05 K/mm3 (0.00-0.23); BASOPHILS PERCENT AUTO 1 % (0-2); EOSINOPHILS ABSOLUTE AUTO 0.05 K/mm3 (0.00-0.68); EOSINOPHILS PERCENT AUTO 1 % (0-6); Hematocrit 40.4 % (37.0-53.0); Hemoglobin 13.9 g/dL (13.5-17.5); IMMATURE GRAN ABSOLUTE AUTO 0.02 K/mm3 (0.00-0.10); IMMATURE GRAN PERCENT AUTO 0 % (0-1); LYMPHOCYTES PERCENT AUTO 23 % (21-46); MONOCYTES ABSOLUTE AUTO 0.39 K/mm3 (0.16-1.47); MONOCYTES PERCENT AUTO 5 % (4-13); Mean Corpuscular HGB 32.7 pg (26.0-34.0); Mean Corpuscular HGB Conc 34.4 g/dL (31.5-36.5); Mean Corpuscular Volume 95 fL (80-100); NEUTROPHILS ABSOLUTE AUTO 5.95 K/mm3 (1.96-9.15); NEUTROPHILS PERCENT AUTO 71 % (41-73); Platelet Count 125 K/mm3 (150-400); RDW Coefficient Variation 13.3 % (11.7-14.2); RDW Standard Deviation 46.6 fL (35.1-46.3); Red Blood Cell Count 4.25 M/mm3 (4.30-5.90); White Blood Cell Count 8.36 K/mm3 (4.00-11.30)
[2023-04-26 15:54] LABS: Albumin/Globulin Ratio 1.3 (0.8-1.8); Bilirubin, Total 0.7 mg/dL (0.1-1.0); Bun/Creatinine Ratio 28.3 (12.0-20.0); Calcium, Blood 8.7 mg/dL (8.5-10.1); Creatinine, Blood 0.46 mg/dL (0.60-1.20); Potassium, Blood 3.7 mmol/L (3.5-5.5)
[2023-04-26] MEDS ORDERED: CHLO25 PO (16:55)
[2023-04-26 17:00] VITALS: BP 132/84
== END 2023-04-26 17:17 | disposition home or self-care (01) ==
LOC: ER 12:22
PROVIDERS: Physician Assistant
DX: F10.229 Alcohol dependence with intoxication, unspecified (principal); R00.0 Tachycardia, unspecified; E86.0 Dehydration; I10 Essential (primary) hypertension; J45.909 Unspecified asthma, uncomplicated; G40.909 Epilepsy, unspecified, not intractable, without status epilepticus; Z79.899 Other long term (current) drug therapy; Z87.891 Personal history of nicotine dependence; Y90.8 Blood alcohol level of 240 mg/100 ml or more
CPT/HCPCS: 80053; 83690; 85025; G0480; J7030

== ENCOUNTER 2023-04-29 13:29 | Emergency (ER) | payer OTHER ==
[~2023-04-29] VITALS: Ht 175.3 cm; Wt 79.4 kg
[2023-04-29 14:45] LABS: BASOPHILS ABSOLUTE AUTO 0.03 K/mm3 (0.00-0.23); BASOPHILS PERCENT AUTO 1 % (0-2); EOSINOPHILS ABSOLUTE AUTO 0.04 K/mm3 (0.00-0.68); EOSINOPHILS PERCENT AUTO 1 % (0-6); Hematocrit 37.7 % (37.0-53.0); Hemoglobin 13.3 g/dL (13.5-17.5); IMMATURE GRAN ABSOLUTE AUTO 0.01 K/mm3 (0.00-0.10); IMMATURE GRAN PERCENT AUTO 0 % (0-1); LYMPHOCYTES ABSOLUTE AUTO 1.53 K/mm3 (0.84-5.20); LYMPHOCYTES PERCENT AUTO 25 % (21-46); MONOCYTES PERCENT AUTO 5 % (4-13); Mean Corpuscular HGB 33.1 pg (26.0-34.0); Mean Corpuscular HGB Conc 35.3 g/dL (31.5-36.5); Mean Corpuscular Volume 94 fL (80-100); Mean Platelet Volume 10.2 fL (9.1-12.4); NEUTROPHILS ABSOLUTE AUTO 4.13 K/mm3 (1.96-9.15); NEUTROPHILS PERCENT AUTO 68 % (41-73); Platelet Count 92 K/mm3 (150-400); RDW Coefficient Variation 13.2 % (11.7-14.2); RDW Standard Deviation 45.7 fL (35.1-46.3); Red Blood Cell Count 4.02 M/mm3 (4.30-5.90); White Blood Cell Count 6.04 K/mm3 (4.00-11.30)
[2023-04-29 15:02] LABS: Albumin, Blood 3.8 g/dL (3.4-5.0); Albumin/Globulin Ratio 1.3 (0.8-1.8); Bilirubin, Direct 0.3 mg/dL (0.0-0.3); Bilirubin, Indirect 0.7 mg/dL (0.1-0.7); Calcium, Blood 8.2 mg/dL (8.5-10.1); Creatinine, Blood 0.48 mg/dL (0.60-1.20); Globulin, Blood 2.9 g/dL (2.2-4.0); Potassium, Blood 3.8 mmol/L (3.5-5.5); Total Protein, Blood 6.7 g/dL (6.4-8.2)
[2023-04-29] MEDS ORDERED: ONDA4ODT MM (15:36)
[2023-04-29] MEDS ORDERED: OMEP20ER PO (15:55)
[2023-04-29 16:15] VITALS: BP 145/96
== END 2023-04-29 16:29 | disposition home or self-care (01) ==
LOC: ER 13:29
PROVIDERS: Student in an Organized Health Care Education/Training Program
DX: F10.239 Alcohol dependence with withdrawal, unspecified (principal); R11.2 Nausea with vomiting, unspecified; Y90.7 Blood alcohol level of 200-239 mg/100 ml; Z87.891 Personal history of nicotine dependence; I10 Essential (primary) hypertension; J45.909 Unspecified asthma, uncomplicated; Z79.51 Long term (current) use of inhaled steroids; Z79.899 Other long term (current) drug therapy
CPT/HCPCS: 80048; 80076; 85025; 96374; 99285-25; A9270; G0480; J2405

== ENCOUNTER 2023-06-10 23:45 | Emergency (ER) | payer OTHER ==
[~2023-06-10] VITALS: Ht 175.3 cm; Wt 85.3 kg
[~2023-06-10 23:45] MED LIST changes: +OMEP20ER PO
[2023-06-11 00:41] VITALS: BP 142/100
[2023-06-11 01:04] LABS: BASOPHILS ABSOLUTE AUTO 0.04 K/mm3 (0.00-0.23); BASOPHILS PERCENT AUTO 1 % (0-2); EOSINOPHILS ABSOLUTE AUTO 0.02 K/mm3 (0.00-0.68); EOSINOPHILS PERCENT AUTO 0 % (0-6); Hematocrit 40.9 % (37.0-53.0); Hemoglobin 14.3 g/dL (13.5-17.5); IMMATURE GRAN ABSOLUTE AUTO 0.01 K/mm3 (0.00-0.10); IMMATURE GRAN PERCENT AUTO 0 % (0-1); LYMPHOCYTES ABSOLUTE AUTO 1.67 K/mm3 (0.84-5.20); LYMPHOCYTES PERCENT AUTO 20 % (21-46); MONOCYTES ABSOLUTE AUTO 0.68 K/mm3 (0.16-1.47); MONOCYTES PERCENT AUTO 8 % (4-13); Mean Corpuscular HGB 33.4 pg (26.0-34.0); Mean Corpuscular Volume 96 fL (80-100); Mean Platelet Volume 10.1 fL (9.1-12.4); NEUTROPHILS ABSOLUTE AUTO 6.07 K/mm3 (1.96-9.15); NEUTROPHILS PERCENT AUTO 72 % (41-73); RDW Coefficient Variation 14.8 % (11.7-14.2); RDW Standard Deviation 51.8 fL (35.1-46.3); Red Blood Cell Count 4.28 M/mm3 (4.30-5.90); White Blood Cell Count 8.49 K/mm3 (4.00-11.30)
[2023-06-11 01:13] LABS: Platelet Count 50 K/mm3 (150-400)
[2023-06-11 01:22] LABS: Salicylate <1.7 mg/dL (2.8-20.0)
[2023-06-11 01:53] LABS: Alanine Aminotransfer (ALT/SGP 40 U/L (12-78); Albumin, Blood 4.4 g/dL (3.4-5.0); Albumin/Globulin Ratio 1.5 (0.8-1.8); Alk Phos 170 U/L (50-136); Anion Gap 11 mmol/L (6-16); Aspartate Aminotrans (AST/SGOT 85 U/L (12-37); Bilirubin, Total 1.1 mg/dL (0.1-1.0); Blood Urea Nitrogen 9 mg/dL (8-24); Bun/Creatinine Ratio 17.2 (12.0-20.0); CO2, Blood 24 mmol/L (21-32); Chloride, Blood 108 mmol/L (98-108); Creatinine, Blood 0.52 mg/dL (0.60-1.20); Ethanol (Alcohol), Blood, Med 457 mg/dL; Glomerular Filtration Rate 125 (60-); Glucose, Blood 117 mg/dL (70-99); Potassium, Blood 3.6 mmol/L (3.5-5.5); Sodium, Blood 143 mmol/L (136-145); Total Protein, Blood 7.4 g/dL (6.4-8.2)
[2023-06-11 01:54] LABS: Acetaminophen, Random <2.0 ug/mL (10.0-30.0)
[2023-06-11 02:07] LABS: Source, Urine Clean Catch
[2023-06-11 02:11] LABS: Bilirubin, Urine Neg (Neg); Blood, Urine 1+ (Neg); Glucose Qualitative, Urine Neg (Neg); Ketones, Urine 1+ (Neg); Leukocyte Esterase, Urine Neg (Neg); Nitrite, Urine Neg (Neg); Protein, Urine 3+ (Neg); Specific Gravity, Urine 1.015 (1.003-1.022); Urobilinogen, Urine 1+ (Normal)
[2023-06-11 02:17] LABS: Appearance, Urine Clear (Clear); Color, Urine Yellow (P-Yellow)
[2023-06-11 02:18] LABS: Bacteria Few /hpf; Red Blood Cells, Urine 0-2 /hpf (0-2); Squamous Epithelial Cells Few /hpf (Few); White Blood Cells, Urine 0-2 /hpf (0-5)
[2023-06-11 02:22] LABS: U Amphetamine Screen Not Detected; U Barbituate Screen Not Detected; U Benzodiazapine Screen DETECTED; U Buprenorphine Screen Not Detected; U Cannabinoids Screen DETECTED; U Cocaine Screen Not Detected; U Methadone Screen Not Detected; U Methamphetamine Screen Not Detected; U Opiates Screen Not Detected; U Oxycodone Screen Not Detected; U Phencyclidine Screen Not Detected; U Propoxyphene Screen Not Detected
[2023-06-11] MEDS ORDERED: ONDA4ODT MM (04:11)
== END 2023-06-11 05:23 | disposition home or self-care (01) ==
LOC: ER 23:45
PROVIDERS: Student in an Organized Health Care Education/Training Program
DX: F10.129 Alcohol abuse with intoxication, unspecified (principal); J45.909 Unspecified asthma, uncomplicated; I10 Essential (primary) hypertension; Z87.891 Personal history of nicotine dependence; Z79.899 Other long term (current) drug therapy
CPT/HCPCS: 80053; 81001; 85025; 93005; 93010; 96374; 96375; 99284-25; A9270; G0480; J0780; J2405; J2765

== ENCOUNTER 2023-06-18 13:30 | Emergency (ER) | payer OTHER ==
[~2023-06-18] VITALS: Ht 175.3 cm; Wt 81.7 kg
[2023-06-18 13:30] VITALS: BP 140/90
[2023-06-18 13:59] LABS: BASOPHILS ABSOLUTE AUTO 0.04 K/mm3 (0.00-0.23); BASOPHILS PERCENT AUTO 1 % (0-2); EOSINOPHILS ABSOLUTE AUTO 0.08 K/mm3 (0.00-0.68); EOSINOPHILS PERCENT AUTO 2 % (0-6); Hemoglobin 13.8 g/dL (13.5-17.5); IMMATURE GRAN ABSOLUTE AUTO 0.01 K/mm3 (0.00-0.10); IMMATURE GRAN PERCENT AUTO 0 % (0-1); LYMPHOCYTES ABSOLUTE AUTO 1.55 K/mm3 (0.84-5.20); LYMPHOCYTES PERCENT AUTO 29 % (21-46); MONOCYTES ABSOLUTE AUTO 0.51 K/mm3 (0.16-1.47); MONOCYTES PERCENT AUTO 10 % (4-13); Mean Corpuscular HGB 33.4 pg (26.0-34.0); Mean Corpuscular HGB Conc 34.5 g/dL (31.5-36.5); Mean Corpuscular Volume 97 fL (80-100); Mean Platelet Volume 10.2 fL (9.1-12.4); NEUTROPHILS PERCENT AUTO 59 % (41-73); RDW Coefficient Variation 14.6 % (11.7-14.2); RDW Standard Deviation 52.1 fL (35.1-46.3); Red Blood Cell Count 4.13 M/mm3 (4.30-5.90); White Blood Cell Count 5.29 K/mm3 (4.00-11.30)
[2023-06-18 14:06] LABS: Platelet Count 33 K/mm3 (150-400)
[2023-06-18 14:26] LABS: Albumin, Blood 4.1 g/dL (3.4-5.0); Albumin/Globulin Ratio 1.3 (0.8-1.8); Bilirubin, Total 1.3 mg/dL (0.1-1.0); Bun/Creatinine Ratio 16.1 (12.0-20.0); Calcium, Blood 8.4 mg/dL (8.5-10.1); Creatinine, Blood 0.5 mg/dL (0.60-1.20); Globulin, Blood 3.1 g/dL (2.2-4.0); Potassium, Blood 3.8 mmol/L (3.5-5.5); Total Protein, Blood 7.2 g/dL (6.4-8.2)
[2023-06-18 15:44] LABS: International Normalized Ratio 1.16; Prothrombin Time Results 12.1 Sec (9.7-11.5)
== END 2023-06-18 17:26 | disposition short-term general hospital (02) ==
LOC: ER 13:30
PROVIDERS: Student in an Organized Health Care Education/Training Program
DX: S06.6XAA Traumatic subarachnoid hemorrhage with loss of consciousness status unknown, initial encounter (principal); S01.112A Laceration without foreign body of left eyelid and periocular area, initial encounter; S01.81XA Laceration without foreign body of other part of head, initial encounter; D69.6 Thrombocytopenia, unspecified; K74.60 Unspecified cirrhosis of liver; K76.0 Fatty (change of) liver, not elsewhere classified; I10 Essential (primary) hypertension; Z23 Encounter for immunization; J45.20 Mild intermittent asthma, uncomplicated; Z87.891 Personal history of nicotine dependence; W19.XXXA Unspecified fall, initial encounter
CPT/HCPCS: 12011; 70450; 71260; 72125; 73110; 74177; 80053; 85025; 85610; 85730; 86850; 86900; 86901; 90471; 90715; 96374-59; 96375-59; 96376-59; 99285-25; G0480; J1790; J2405; J2765; J7050; Q9967

== ENCOUNTER 2023-08-11 13:25 | Observation (INO) | payer OTHER ==
[~2023-08-11] VITALS: Ht 175.3 cm; Wt 81.5 kg
[2023-08-11 14:53] LABS: Albumin, Blood 4.5 g/dL (3.4-5.0); Albumin/Globulin Ratio 1.5 (0.8-1.8); Bilirubin, Direct 0.4 mg/dL (0.0-0.3); Bilirubin, Total 1.4 mg/dL (0.1-1.0); Creatinine, Blood 0.63 mg/dL (0.60-1.20); Globulin, Blood 3.1 g/dL (2.2-4.0); Magnesium, Blood 1.6 mg/dL (1.6-2.4); Phosphorus, Blood 2.5 mg/dL (2.5-4.9); Potassium, Blood 3.8 mmol/L (3.5-5.5); Total Protein, Blood 7.6 g/dL (6.4-8.2)
[2023-08-11 15:02] LABS: BASOPHILS ABSOLUTE AUTO 0.03 K/mm3 (0.00-0.23); BASOPHILS PERCENT AUTO 1 % (0-2); EOSINOPHILS ABSOLUTE AUTO 0.04 K/mm3 (0.00-0.68); EOSINOPHILS PERCENT AUTO 1 % (0-6); Hematocrit 41.1 % (37.0-53.0); Hemoglobin 14.8 g/dL (13.5-17.5); IMMATURE GRAN ABSOLUTE AUTO 0.01 K/mm3 (0.00-0.10); IMMATURE GRAN PERCENT AUTO 0 % (0-1); LYMPHOCYTES ABSOLUTE AUTO 1.06 K/mm3 (0.84-5.20); LYMPHOCYTES PERCENT AUTO 18 % (21-46); MONOCYTES ABSOLUTE AUTO 0.24 K/mm3 (0.16-1.47); MONOCYTES PERCENT AUTO 4 % (4-13); Mean Corpuscular HGB 32.8 pg (26.0-34.0); Mean Corpuscular Volume 91 fL (80-100); Mean Platelet Volume 10.7 fL (9.1-12.4); NEUTROPHILS ABSOLUTE AUTO 4.52 K/mm3 (1.96-9.15); NEUTROPHILS PERCENT AUTO 77 % (41-73); Platelet Count 58 K/mm3 (150-400); RDW Coefficient Variation 12.9 % (11.7-14.2); RDW Standard Deviation 42.5 fL (35.1-46.3); Red Blood Cell Count 4.51 M/mm3 (4.30-5.90)
[2023-08-11 17:42] LABS: International Normalized Ratio 1.15
[2023-08-11 18:06] VITALS: BP 109/80
--- NOTE | 2023-08-11 19:25 | NUR ---
PT ARRIVED TO PCU 13 AT APROX 1802 VIA GURNEY FROM ED. PT ABLE TO STAND AND PIVOT FROM GURNEY TO BED WITH 2 PERSON ASSISTANCE, PT IS VERY TREMULOUS AND WEAK. ADMISSION ASSESSMENT COMPLETED. PT'S GIRLFRIEND AT BEDSIDE. PT PLEASANT AND COOPERATIVE WITH CARE, ORIENTED TO ROOM, CALL LIGHT AND ROUTINES. BED ALARM ON FOR SAFETY. CALL LIGHT IN REACH. REPORT GIVEN TO ELDA SHIFT RN.
[2023-08-11 20:00] VITALS: BP 142/91
[2023-08-11 21:51] LABS: U Amphetamine Screen Not Detected; U Barbituate Screen Not Detected; U Benzodiazapine Screen DETECTED; U Buprenorphine Screen Not Detected; U Cannabinoids Screen DETECTED; U Cocaine Screen Not Detected; U Methadone Screen Not Detected; U Methamphetamine Screen Not Detected; U Opiates Screen Not Detected; U Oxycodone Screen Not Detected; U Phencyclidine Screen Not Detected; U Propoxyphene Screen Not Detected
[2023-08-12 00:30] VITALS: BP 136/94
[2023-08-12 04:30] VITALS: BP 137/92
[2023-08-12 04:43] LABS: BASOPHILS ABSOLUTE AUTO 0.02 K/mm3 (0.00-0.23); BASOPHILS PERCENT AUTO 0 % (0-2); EOSINOPHILS PERCENT AUTO 2 % (0-6); Hematocrit 35.9 % (37.0-53.0); Hemoglobin 12.7 g/dL (13.5-17.5); IMMATURE GRAN ABSOLUTE AUTO 0.01 K/mm3 (0.00-0.10); IMMATURE GRAN PERCENT AUTO 0 % (0-1); LYMPHOCYTES ABSOLUTE AUTO 1.22 K/mm3 (0.84-5.20); LYMPHOCYTES PERCENT AUTO 24 % (21-46); MONOCYTES ABSOLUTE AUTO 0.35 K/mm3 (0.16-1.47); MONOCYTES PERCENT AUTO 7 % (4-13); Mean Corpuscular HGB 32.8 pg (26.0-34.0); Mean Corpuscular HGB Conc 35.4 g/dL (31.5-36.5); Mean Corpuscular Volume 93 fL (80-100); Mean Platelet Volume 10.1 fL (9.1-12.4); NEUTROPHILS ABSOLUTE AUTO 3.31 K/mm3 (1.96-9.15); NEUTROPHILS PERCENT AUTO 66 % (41-73); RDW Coefficient Variation 12.8 % (11.7-14.2); RDW Standard Deviation 43.1 fL (35.1-46.3); Red Blood Cell Count 3.87 M/mm3 (4.30-5.90); White Blood Cell Count 5.01 K/mm3 (4.00-11.30)
[2023-08-12 04:55] LABS: Platelet Count 42 K/mm3 (150-400)
[2023-08-12 05:09] LABS: Albumin, Blood 3.7 g/dL (3.4-5.0); Albumin/Globulin Ratio 1.5 (0.8-1.8); Bilirubin, Total 2.5 mg/dL (0.1-1.0); Calcium, Blood 8.5 mg/dL (8.5-10.1); Creatinine, Blood 0.64 mg/dL (0.60-1.20); Globulin, Blood 2.5 g/dL (2.2-4.0); Magnesium, Blood 2.1 mg/dL (1.6-2.4); Potassium, Blood 3.2 mmol/L (3.5-5.5); Total Protein, Blood 6.2 g/dL (6.4-8.2)
--- NOTE | 2023-08-12 06:15 | NUR ---
CARE NOTE PT A&O X4; AT TIMES PT MILDLY FORGETFUL EASILY REORIENTED. PT STATES HE IS "STARTING TO FEEL BETTER". VSS T/O SHIFT. CIWA SCORES RANGING FROM 6 - 12. MEDICATION PER PROTOCOL AND ORDERS. THROUHGOUT THE SHIFT PT REPORTS MAYORGA AND PAIN "IN LEG, BACK AND ANKLE". PT STATES FEELS "SORE" AND IT IS PROBABLY " FROM WHEN I FELL". TYLENOL PER EMAR W/GOOD RELIEF. HEATING PAD ALSO PROVIDED. PT REPORTS HIS APPETITE IS STARTING TO COME BACK, PT HAD SOME SNACKS AND TOLERATED PO INTAKE WELL. DENIED N/V WITH INTAKE. PT UP AMBULATING TO RESTROOM W/SBA. PT HAD ONE BM THIS SHIFT; PT REPORTS BM WAS "LARGE BROWN AND FORMED". DENIES MELENA OR ANY CONCERNS. PT ASKING ABOUT DISCHARGE AND WHEN HE WILL GET TO SPEAK WITH A DOCTOR. THIS RN ASSURED PT THAT A DOCTOR WOULD BE IN TO ROUND IN THE AM TO SPEAK WITH HIM. PT VERBALIZED UNDERSTANDING. CALL LIGHT IN REACH AND PT USING APPROPRIATELY. WILL UPDATE ONCOMING RN
[2023-08-12 07:54] VITALS: BP 125/86
[2023-08-12] MEDS ORDERED: CHLO25 PO (11:08)
--- NOTE | 2023-08-12 12:11 | NUR ---
DISCHARGE: PT HAS BEEN CLEARED FOR DISCHARGE. ALL IV ACCESS HAS BEEN DC'd WNL. PT DRESSES SELF. PT PROVIDED W/DC PAPERWORK AND INSTRUCTIONS, V/U. PT ESCORTED FROM UNIT VIA W/C W/OUT INCIDENT.
== END 2023-08-12 11:41 | disposition home or self-care (01) ==
LOC: ER 13:25 → PCU 13:26
PROVIDERS: Physician Assistant; ADMIT Student in an Organized Health Care Education/Training Program
DX: F10.239 Alcohol dependence with withdrawal, unspecified (principal); Y90.3 Blood alcohol level of 60-79 mg/100 ml; D69.6 Thrombocytopenia, unspecified; K74.60 Unspecified cirrhosis of liver; F32.9 Major depressive disorder, single episode, unspecified; I45.81 Long QT syndrome; I10 Essential (primary) hypertension; Z87.891 Personal history of nicotine dependence; Z79.899 Other long term (current) drug therapy
CPT/HCPCS: 36415; 70450; 80048; 80053; 80076; 83735; 84100; 85025; 85610; 93005; 93010; 94640; 94664; 94762; 96365; 96366; 96367; 96368; 96375; 96376; 99285-25; A9270; G0378; J2060; J2405; J3411; J3475

== ENCOUNTER 2023-08-29 06:07 | Observation (INO) | payer OTHER ==
[~2023-08-29] VITALS: Ht 175.3 cm; Wt 64.5 kg
[2023-08-29 07:03] LABS: BASOPHILS ABSOLUTE AUTO 0.05 K/mm3 (0.00-0.23); BASOPHILS PERCENT AUTO 1 % (0-2); EOSINOPHILS ABSOLUTE AUTO 0.02 K/mm3 (0.00-0.68); EOSINOPHILS PERCENT AUTO 0 % (0-6); Hematocrit 43.1 % (37.0-53.0); Hemoglobin 15.2 g/dL (13.5-17.5); IMMATURE GRAN ABSOLUTE AUTO 0.01 K/mm3 (0.00-0.10); IMMATURE GRAN PERCENT AUTO 0 % (0-1); LYMPHOCYTES ABSOLUTE AUTO 1.34 K/mm3 (0.84-5.20); LYMPHOCYTES PERCENT AUTO 22 % (21-46); MONOCYTES ABSOLUTE AUTO 0.46 K/mm3 (0.16-1.47); MONOCYTES PERCENT AUTO 8 % (4-13); Mean Corpuscular HGB 33.3 pg (26.0-34.0); Mean Corpuscular HGB Conc 35.3 g/dL (31.5-36.5); Mean Corpuscular Volume 95 fL (80-100); Mean Platelet Volume 10.4 fL (9.1-12.4); NEUTROPHILS ABSOLUTE AUTO 4.22 K/mm3 (1.96-9.15); NEUTROPHILS PERCENT AUTO 69 % (41-73); Platelet Count 88 K/mm3 (150-400); RDW Coefficient Variation 14.8 % (11.7-14.2); RDW Standard Deviation 51.5 fL (35.1-46.3); Red Blood Cell Count 4.56 M/mm3 (4.30-5.90)
[2023-08-29 07:40] LABS: Albumin, Blood 4.6 g/dL (3.4-5.0); Albumin/Globulin Ratio 1.6 (0.8-1.8); Bilirubin, Total 1.9 mg/dL (0.1-1.0); Bun/Creatinine Ratio 17.9 (12.0-20.0); Calcium, Blood 8.8 mg/dL (8.5-10.1); Creatinine, Blood 0.67 mg/dL (0.60-1.20); Globulin, Blood 2.9 g/dL (2.2-4.0); Magnesium, Blood 1.8 mg/dL (1.6-2.4); Phosphorus, Blood 2.2 mg/dL (2.5-4.9); Potassium, Blood 3.7 mmol/L (3.5-5.5); Total Protein, Blood 7.5 g/dL (6.4-8.2)
--- NOTE | 2023-08-29 11:05 | NUR ---
ARRIVAL TO PCU: Report recieved from betina in the ER. Patient arrived via gurney to PCU 10 and was able to walk with the FWW to the bed. He is impulsive and tremulous but is able to ambulate with a FWW. He is alert and oriented x4. He denies pain at this time. Patient states he was trying to ambulate to the bathroom this morning and fell getting to the bathroom. He was able to get up onto the toilet and then fell again getting back to bed, thus he called EMS to come and bring him to the hospital. He states he normally drinks 1/5 of rum daily and was trying to cut back on his own. He tried to drink beer instead of hard alcohol and he states he drank 36 beers that day, last drink was Sunday. He states he had some left over Librium at home and took some a midnight to try and prevent going through alcohol withdrawl, but he noted he started getting tremulous this am and decided to seek medical treatment. His heart rate is regular SR in the 80s-90s, he denies chest pain or pressure, he is slightly hypertensive. LS CTA, Biox is high 90s on RA. BT+, pt states he had a BM today and has been having some loose stool at home. He is C/O nausea at this time, Zofran given. PPP. His CIWA is currently 13, 50 mg PO Librium given. Patient is able to ambulate to the bathroom with staff assistance. Once back to bed his call light is in reach, he denies other needs at this time. Health history and medications list complete.
[2023-08-29 11:16] VITALS: BP 144/98
[2023-08-29 16:00] VITALS: BP 110/95
--- NOTE | 2023-08-29 18:45 | NUR ---
Summary: Patient arrived from the ER to PCU 10 this shift for alcohol withdrawl. He drinks a 1/5 of rum daily and his last drink was on sunday. He was trying to withdrawl at home but fell several times this morning so he called EMS to bring him to the hospital. He has been alert and oriented x4 T/O the shift. Some C/O headache. HRR, initially the rate was in the 90s gradually it went down into the 70s. Blood pressure was initially elevated and gradually came down as well. Bt+, he is having some diarrhea. On admit he was having some nausea but this resolved with a dose of Zofran. His CIWA has ranged from 6-15, he is responding well to ativan and Librium. Patient is currently resting comfortably on his side with his eyes closed. Bed alarm on for safety. Call light in reach.
[2023-08-29 19:37] VITALS: BP 121/95
[2023-08-30 00:44] VITALS: BP 128/79
[2023-08-30 03:51] VITALS: BP 144/85
[2023-08-30 03:59] LABS: BASOPHILS ABSOLUTE AUTO 0.02 K/mm3 (0.00-0.23); BASOPHILS PERCENT AUTO 0 % (0-2); EOSINOPHILS ABSOLUTE AUTO 0.04 K/mm3 (0.00-0.68); EOSINOPHILS PERCENT AUTO 1 % (0-6); Hematocrit 36.9 % (37.0-53.0); Hemoglobin 12.7 g/dL (13.5-17.5); IMMATURE GRAN ABSOLUTE AUTO 0.01 K/mm3 (0.00-0.10); IMMATURE GRAN PERCENT AUTO 0 % (0-1); LYMPHOCYTES ABSOLUTE AUTO 0.88 K/mm3 (0.84-5.20); LYMPHOCYTES PERCENT AUTO 17 % (21-46); MONOCYTES ABSOLUTE AUTO 0.39 K/mm3 (0.16-1.47); MONOCYTES PERCENT AUTO 8 % (4-13); Mean Corpuscular HGB 32.9 pg (26.0-34.0); Mean Corpuscular HGB Conc 34.4 g/dL (31.5-36.5); Mean Corpuscular Volume 96 fL (80-100); Mean Platelet Volume 10.6 fL (9.1-12.4); NEUTROPHILS ABSOLUTE AUTO 3.75 K/mm3 (1.96-9.15); NEUTROPHILS PERCENT AUTO 74 % (41-73); Platelet Count 59 K/mm3 (150-400); RDW Coefficient Variation 14.7 % (11.7-14.2); Red Blood Cell Count 3.86 M/mm3 (4.30-5.90); White Blood Cell Count 5.09 K/mm3 (4.00-11.30)
[2023-08-30 04:22] LABS: Albumin, Blood 3.7 g/dL (3.4-5.0); Albumin/Globulin Ratio 1.4 (0.8-1.8); Bilirubin, Total 2.9 mg/dL (0.1-1.0); Bun/Creatinine Ratio 13.4 (12.0-20.0); Calcium, Blood 8.2 mg/dL (8.5-10.1); Creatinine, Blood 0.6 mg/dL (0.60-1.20); Globulin, Blood 2.7 g/dL (2.2-4.0); Potassium, Blood 3.7 mmol/L (3.5-5.5); Total Protein, Blood 6.4 g/dL (6.4-8.2)
--- NOTE | 2023-08-30 05:10 | NUR ---
END OF SHIFT NOTE PT REMAINS ALERT AND ORIENTED X4 THIS SHIFT. ABLE TO CALL APPROPRIATELY AND COMMUNICATE NEEDS WITH STAFF. CIWA 8-15 THIS SHIFT, MEDICATED WITH ATIVAN AND LIBRIUM PER [facility] PROTOCOL ORDERS. VSS. HR 60'S, NSR ON TELE. SBP 120-140'S, DENIES CHEST PAIN/PRESSURE. SPO2 >95% ON RA. AFEBRILE. MULTIPLE LIQUID BM'S THIS SHIFT, ABLE TO AMBULATE TO BATHROOM WITH SBA. C/O NAUSEA, MEDICATED WITH ZOFRAN PER EMAR WITH RELIEF. POWERGLIDE TO EMILEE, INFUSING LR AT 150ML/HR PER EMAR. NO OTHER EVENTS THIS SHIFT. CALL LIGHT WITHIN REACH, BED IN LOWEST POSITION. BED ALARM ON. WILL REPORT TO ONCOMING RN.
[2023-08-30 07:33] VITALS: BP 172/116
[2023-08-30 07:57] VITALS: BP 150/91
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
--- NOTE | 2023-08-30 13:15 | NUR ---
AMA NOTE AT APPROX. 1245 RADHIKA MOODY SPORTS WRITER NOTIFIED THIS RN THAT PT WAS WANTING TO GO HOME. THIS RN WENT INTO PT ROOM AND PT STATED THAT HE WANTED TO GO HOME TODAY AND THAT "I HAVE SERTRALINE AT HOME, I HAVE BILLS TO PAY, I HAVE PLANS TO QUIT DRINKING WHICH I HOPE I CAN FOLLOW THROUGH WITH." THIS RN EDUCATED PT REGARDING ALCOHOL WITHDRAWL AND REMINDED HIM THAT HE WAS HAVING ACTIVE HALLUCINATIONS THIS AM. THIS RN COMMUNICATED THERAPEUTICALLY AND EDUCATED PT REGARDING THE RISKS OF GOING HOME PROIR TO BEING MEDICALLY DISCHARGED. THIS RN THEN CALLED DR. RAMSAY AND NOTIFIED GURDEEP PEREA RN. PT AND HIS GIRLFRIEND WERE EDUCATED BY GURDEEP RONDON RN REGARDING PT RIGHTS AND GURDEEP RONDON RN STATED VERY CLEARLY THAT THE PT IS NOT MEDICALLY FIT TO DISCHARGE ACCORDING TO DR. RAMSAY'S RECOMMENDATIONS. THE PT THEN REQUESTED FOR THE PG TO BE REMOVED. THIS RN ASKED PT IF IT COULD BE LEFT IN UNTIL THE DRTiffanie CAME TO BEDSIDE AND THEN THE PT PROCEEDED TO ATTEMPT TO TAKE PG OUT. THIS RN THEN PUT ON GLOVES AND REMOVED PG W/ THE PT'S APPROVAL. DR. RAMSAY THEN CAME TO BEDSIDE AND EDUCATED THE PT AND HIS GIRLFRIEND WELL BUT THE PT WAS PERSISTENT THAT HE WAS LEAVING TODAY. HE LEFT AT APPROX. 1255.
== END 2023-08-30 13:00 | disposition left against medical advice (07) ==
LOC: ER 06:07 → PCU 06:09 → ER 09:20 → PCU 11:06
PROVIDERS: Emergency Medicine; ADMIT Internal Medicine
DX: F10.230 Alcohol dependence with withdrawal, uncomplicated (principal); F10.239 Alcohol dependence with withdrawal, unspecified; Y90.9 Presence of alcohol in blood, level not specified; D69.6 Thrombocytopenia, unspecified; K74.60 Unspecified cirrhosis of liver; F32.A Depression, unspecified; I10 Essential (primary) hypertension
CPT/HCPCS: 70450; 80053; 82607; 82746; 83735; 84100; 85025; 93005; 93010; 94760; 96361; 96365; 96375; 96376; 99285-25; A9270; C1751; C9113; J2060; J2405; J3411; J7030; J7120

== ENCOUNTER 2023-09-19 09:26 | Emergency (ER) | payer OTHER ==
[~2023-09-19] VITALS: Ht 175.3 cm; Wt 79.4 kg
[2023-09-19 10:07] LABS: BASOPHILS ABSOLUTE AUTO 0.05 K/mm3 (0.00-0.23); BASOPHILS PERCENT AUTO 0 % (0-2); EOSINOPHILS ABSOLUTE AUTO 0.02 K/mm3 (0.00-0.68); EOSINOPHILS PERCENT AUTO 0 % (0-6); Hematocrit 47.1 % (37.0-53.0); Hemoglobin 16.4 g/dL (13.5-17.5); IMMATURE GRAN ABSOLUTE AUTO 0.08 K/mm3 (0.00-0.10); IMMATURE GRAN PERCENT AUTO 1 % (0-1); LYMPHOCYTES PERCENT AUTO 7 % (21-46); MONOCYTES ABSOLUTE AUTO 0.67 K/mm3 (0.16-1.47); MONOCYTES PERCENT AUTO 4 % (4-13); Mean Corpuscular HGB 33.5 pg (26.0-34.0); Mean Corpuscular HGB Conc 34.8 g/dL (31.5-36.5); Mean Corpuscular Volume 96 fL (80-100); Mean Platelet Volume 9.4 fL (9.1-12.4); NEUTROPHILS ABSOLUTE AUTO 14.66 K/mm3 (1.96-9.15); NEUTROPHILS PERCENT AUTO 88 % (41-73); Platelet Count 173 K/mm3 (150-400); RDW Coefficient Variation 14.7 % (11.7-14.2); RDW Standard Deviation 52.7 fL (35.1-46.3); White Blood Cell Count 16.68 K/mm3 (4.00-11.30)
[2023-09-19 10:48] LABS: Albumin, Blood 4.4 g/dL (3.4-5.0); Albumin/Globulin Ratio 1.3 (0.8-1.8); Bilirubin, Total 0.7 mg/dL (0.1-1.0); Bun/Creatinine Ratio 18.6 (12.0-20.0); Calcium, Blood 8.5 mg/dL (8.5-10.1); Creatinine, Blood 0.54 mg/dL (0.60-1.20); Globulin, Blood 3.4 g/dL (2.2-4.0); Potassium, Blood 4.3 mmol/L (3.5-5.5); Total Protein, Blood 7.8 g/dL (6.4-8.2)
[2023-09-19] MEDS ORDERED: ONDA4ODT MM (13:15)
[2023-09-19] MEDS ORDERED: OMEP20ER PO (13:15)
[2023-09-19 14:30] VITALS: BP 123/74
== END 2023-09-19 14:48 | disposition home or self-care (01) ==
LOC: ER 09:26
PROVIDERS: Student in an Organized Health Care Education/Training Program
DX: K29.20 Alcoholic gastritis without bleeding (principal); K21.9 Gastro-esophageal reflux disease without esophagitis; F10.20 Alcohol dependence, uncomplicated; Y90.8 Blood alcohol level of 240 mg/100 ml or more; D72.829 Elevated white blood cell count, unspecified; I10 Essential (primary) hypertension; J45.909 Unspecified asthma, uncomplicated; Z79.899 Other long term (current) drug therapy; Z87.891 Personal history of nicotine dependence
CPT/HCPCS: 74177; 80053; 83690; 83735; 85025; 93005; 93010; 94644; 94664; 96361; 96374; 96375; 99285-25; A9270; C9113; J1790; J1885; J2405; J3010; J7120; Q9967

== ENCOUNTER 2023-09-21 16:59 | Observation (INO) | payer OTHER ==
[~2023-09-21] VITALS: Ht 175.3 cm; Wt 81.7 kg
[2023-09-21] MEDS ORDERED: Ketorolac Tromethamine 30mg Vial IV ONE (17:50)
[2023-09-21] MEDS ORDERED: NS 1,000 ML IV SCH (17:50)
[2023-09-21] MEDS ORDERED: LORazepam 2 MG / ML 10ML Vial IV PRN (17:50)
[2023-09-21] MEDS ORDERED: Metoclopramide HCl 5MG / ML 2ML Vial IV ONE (17:50)
[2023-09-21] MEDS ORDERED: LORazepam 2 MG/ML 1ML Injection IV ONE (17:55)
[2023-09-21 18:00] LABS: BASOPHILS ABSOLUTE AUTO 0.04 K/mm3 (0.00-0.23); BASOPHILS PERCENT AUTO 0 % (0-2); EOSINOPHILS ABSOLUTE AUTO 0.03 K/mm3 (0.00-0.68); EOSINOPHILS PERCENT AUTO 0 % (0-6); Hematocrit 43.9 % (37.0-53.0); Hemoglobin 15.5 g/dL (13.5-17.5); IMMATURE GRAN ABSOLUTE AUTO 0.04 K/mm3 (0.00-0.10); IMMATURE GRAN PERCENT AUTO 0 % (0-1); LYMPHOCYTES ABSOLUTE AUTO 0.95 K/mm3 (0.84-5.20); LYMPHOCYTES PERCENT AUTO 9 % (21-46); MONOCYTES ABSOLUTE AUTO 0.38 K/mm3 (0.16-1.47); MONOCYTES PERCENT AUTO 4 % (4-13); Mean Corpuscular HGB 33.5 pg (26.0-34.0); Mean Corpuscular HGB Conc 35.3 g/dL (31.5-36.5); Mean Corpuscular Volume 95 fL (80-100); Mean Platelet Volume 9.7 fL (9.1-12.4); NEUTROPHILS ABSOLUTE AUTO 8.85 K/mm3 (1.96-9.15); NEUTROPHILS PERCENT AUTO 86 % (41-73); Platelet Count 91 K/mm3 (150-400); RDW Coefficient Variation 13.8 % (11.7-14.2); RDW Standard Deviation 48.9 fL (35.1-46.3); Red Blood Cell Count 4.62 M/mm3 (4.30-5.90); White Blood Cell Count 10.29 K/mm3 (4.00-11.30)
[2023-09-21 18:18] LABS: Alanine Aminotransfer (ALT/SGP 35 U/L (12-78); Albumin, Blood 4.6 g/dL (3.4-5.0); Albumin/Globulin Ratio 1.4 (0.8-1.8); Alk Phos 165 U/L (50-136); Anion Gap 8 mmol/L (6-16); Aspartate Aminotrans (AST/SGOT 45 U/L (12-37); Bilirubin, Total 1.5 mg/dL (0.1-1.0); Blood Urea Nitrogen 12 mg/dL (8-24); CO2, Blood 25 mmol/L (21-32); Calcium, Blood 9.2 mg/dL (8.5-10.1); Chloride, Blood 103 mmol/L (98-108); Creatinine, Blood 0.67 mg/dL (0.60-1.20); Ethanol (Alcohol), Blood, Med <3 mg/dL; Globulin, Blood 3.4 g/dL (2.2-4.0); Glomerular Filtration Rate 116 (60-); Glucose, Blood 113 mg/dL (70-99); Potassium, Blood 2.9 mmol/L (3.5-5.5); Sodium, Blood 136 mmol/L (136-145)
[2023-09-21] MEDS ORDERED: LORazepam 2 MG/ML 1ML Injection IV PRN (18:25)
[2023-09-21] MEDS ORDERED: Potassium Chl 20MEQ/Water100ML 100 ML IV SCH (18:30)
[2023-09-21] MEDS ORDERED: Folic Acid 1 MG TAB PO ONE (18:30)
[2023-09-21] MEDS ORDERED: Thiamine HCl 100 MG Tab PO ONE (18:30)
[2023-09-21] MEDS ORDERED: ChlordiazePOXIDE 25 MG Cap PO PRN (19:10)
[2023-09-21] MEDS ORDERED: Promethazine HCl 25 MG Tab PO PRN (19:15)
[2023-09-21] MEDS ORDERED: Magnesium Hydroxide Conc 10 ML UDC PO PRN (19:20)
[2023-09-21] MEDS ORDERED: FLU VACC QS2023-24(6MOS UP)/PF 60 MCG/0.5 ML SYRINGE IM ONE (19:20)
[2023-09-21] MEDS ORDERED: Albuterol HFA200 ACT/6.7 GM INH INH PRN (19:25)
[2023-09-21] MEDS ORDERED: OMEP20ER PO (21:03)
[2023-09-21 21:51] VITALS: BP 135/98
[2023-09-21] MEDS ORDERED: Potassium Chloride 20 MEQ TabCR PO ONE (22:00)
[2023-09-22] MEDS ORDERED: LORazepam 1 MG Tab PO SCH
[2023-09-22] MEDS ORDERED: Potassium Chloride 10 Meq Tablet SA PO ONE (00:15)
--- NOTE | 2023-09-22 03:23 | NUR ---
PT ARRIVED TO THE UNIT AT 2139. PT ABLE TO TRANSFER SELF FROM [facility] TO HOSPITAL BED. PT A&O x4, VSS, AFEBRILE. PT's CIWA SCORE AT 2221 WAS 5. PT ON RA, RESP RATE EVEN AND UNLABORED. LUNG SOUNDS CTA. PT ABLE TO MAKE NEEDS KNOWN. PRN LIBRIUM GIVEN, WITH GOOD RESULTS. NO C/O N/V. PT STATED HIS APPETITE HAS IMPROVED OF YESTERDAY. PT ABLE TO GET SOME SLEEP OVERNIGHT. CALL LIGHT WITHIN REACH, WCTM.
[2023-09-22 04:39] VITALS: BP 138/102
[2023-09-22] MEDS ORDERED: Omeprazole 20 MG CapCR PO SCH (06:00)
[2023-09-22 06:58] LABS: Bun/Creatinine Ratio 19.8 (12.0-20.0); Calcium, Blood 7.9 mg/dL (8.5-10.1); Creatinine, Blood 0.61 mg/dL (0.60-1.20); Magnesium, Blood 2.1 mg/dL (1.6-2.4); Potassium, Blood 3.4 mmol/L (3.5-5.5)
[2023-09-22 07:08] VITALS: BP 138/86
[2023-09-22] MEDS ORDERED: Potassium Phos/Sodium Phos 250 MG PACK PO ONE (08:35)
[2023-09-22] MEDS ORDERED: Potassium Chloride 20 MEQ TabCR PO ONE (08:35)
[2023-09-22] MEDS ORDERED: Folic Acid 1 MG TAB PO SCH (09:00)
[2023-09-22] MEDS ORDERED: Thiamine HCl 100 MG Tab PO SCH (09:00)
[2023-09-22] MEDS ORDERED: Multivitamins/Minerals TAB PO SCH (09:00)
[2023-09-22] MEDS ORDERED: Sertraline HCl 50 MG Tab PO SCH (09:00)
[2023-09-22] MEDS ORDERED: Ibuprofen 600 MG Tab PO ONE (12:00)
[2023-09-22] MEDS ORDERED: Ibuprofen 600 MG Tab PO PRN (12:00)
[2023-09-22] MEDS ORDERED: IBUP600 PO (12:47)
[2023-09-22] MEDS ORDERED: [UNRECOGNIZED DRUG - OTHER] PO (12:47)
== END 2023-09-22 13:18 | disposition home or self-care (01) ==
LOC: ER 16:59 → MEDS 17:00
PROVIDERS: Student in an Organized Health Care Education/Training Program; ADMIT Internal Medicine
DX: F10.239 Alcohol dependence with withdrawal, unspecified (principal); Y90.0 Blood alcohol level of less than 20 mg/100 ml; G40.89 Other seizures; E87.6 Hypokalemia; E83.39 Other disorders of phosphorus metabolism; K70.30 Alcoholic cirrhosis of liver without ascites; D69.6 Thrombocytopenia, unspecified; J45.909 Unspecified asthma, uncomplicated; I10 Essential (primary) hypertension; Z78.9 Other specified health status
CPT/HCPCS: 36415; 72100; 80048; 80053; 82947; 83735; 84100; 85025; 86850; 86900; 86901; 93005; 93010; 94760; 96365; 96366; 96375; 99285-25; A9270; G0378; J1885; J2060; J2765; J3480; J7030

== ENCOUNTER 2023-09-23 07:40 | Emergency (ER) | payer OTHER ==
[~2023-09-23] VITALS: Ht 175.3 cm; Wt 81.7 kg
[~2023-09-23 07:40] MED LIST changes: +IBUP600 PO; +[UNRECOGNIZED DRUG - OTHER] PO
[2023-09-23 09:30] VITALS: BP 168/102
[2023-09-24] MEDS ORDERED: Vitamin B-150 MG PO (00:08)
[2023-09-24] MEDS ORDERED: FOLI1 PO (00:08)
== END 2023-09-23 09:39 | disposition home or self-care (01) ==
LOC: ER 07:40
DX: S16.1XXA Strain of muscle, fascia and tendon at neck level, initial encounter (principal); S20.211A Contusion of right front wall of thorax, initial encounter; S80.811A Abrasion, right lower leg, initial encounter; F10.10 Alcohol abuse, uncomplicated; F17.200 Nicotine dependence, unspecified, uncomplicated; Z79.899 Other long term (current) drug therapy; V43.52XA Car driver injured in collision with other type car in traffic accident, initial encounter; Y92.410 Unspecified street and highway as the place of occurrence of the external cause
CPT/HCPCS: 72125; 99284-25

== ENCOUNTER 2023-09-23 19:27 | Inpatient (IN) | payer OTHER ==
[~2023-09-23] VITALS: Ht 175.3 cm; Wt 86.0 kg
[2023-09-23 21:05] LABS: BASOPHILS ABSOLUTE AUTO 0.04 K/mm3 (0.00-0.23); BASOPHILS PERCENT AUTO 1 % (0-2); EOSINOPHILS ABSOLUTE AUTO 0.25 K/mm3 (0.00-0.68); EOSINOPHILS PERCENT AUTO 3 % (0-6); Hematocrit 37.7 % (37.0-53.0); Hemoglobin 13.2 g/dL (13.5-17.5); IMMATURE GRAN ABSOLUTE AUTO 0.03 K/mm3 (0.00-0.10); IMMATURE GRAN PERCENT AUTO 0 % (0-1); LYMPHOCYTES ABSOLUTE AUTO 1.18 K/mm3 (0.84-5.20); LYMPHOCYTES PERCENT AUTO 15 % (21-46); MONOCYTES ABSOLUTE AUTO 0.44 K/mm3 (0.16-1.47); MONOCYTES PERCENT AUTO 6 % (4-13); Mean Corpuscular HGB 33.4 pg (26.0-34.0); Mean Corpuscular Volume 95 fL (80-100); Mean Platelet Volume 10.7 fL (9.1-12.4); NEUTROPHILS PERCENT AUTO 76 % (41-73); Platelet Count 77 K/mm3 (150-400); RDW Coefficient Variation 13.9 % (11.7-14.2); RDW Standard Deviation 48.7 fL (35.1-46.3); Red Blood Cell Count 3.95 M/mm3 (4.30-5.90); White Blood Cell Count 7.94 K/mm3 (4.00-11.30)
[2023-09-23 21:22] LABS: Alanine Aminotransfer (ALT/SGP 39 U/L (12-78); Albumin, Blood 3.9 g/dL (3.4-5.0); Albumin/Globulin Ratio 1.3 (0.8-1.8); Alk Phos 131 U/L (50-136); Anion Gap 7 mmol/L (6-16); Aspartate Aminotrans (AST/SGOT 107 U/L (12-37); Blood Urea Nitrogen 16 mg/dL (8-24); Bun/Creatinine Ratio 19.2 (12.0-20.0); CO2, Blood 27 mmol/L (21-32); Calcium, Blood 9.7 mg/dL (8.5-10.1); Chloride, Blood 108 mmol/L (98-108); Creatinine, Blood 0.83 mg/dL (0.60-1.20); Ethanol (Alcohol), Blood, Med <3 mg/dL; Globulin, Blood 3.1 g/dL (2.2-4.0); Glomerular Filtration Rate 109 (60-); Glucose, Blood 92 mg/dL (70-99); Magnesium, Blood 1.5 mg/dL (1.6-2.4); Potassium, Blood 3.4 mmol/L (3.5-5.5); Sodium, Blood 142 mmol/L (136-145)
[2023-09-23 22:00] LABS: U Amphetamine Screen Not Detected; U Barbituate Screen Not Detected; U Benzodiazapine Screen DETECTED; U Buprenorphine Screen Not Detected; U Cannabinoids Screen DETECTED; U Cocaine Screen Not Detected; U Methadone Screen Not Detected; U Methamphetamine Screen Not Detected; U Opiates Screen Not Detected; U Oxycodone Screen Not Detected; U Phencyclidine Screen Not Detected
[2023-09-23 23:58] VITALS: BP 143/97
[2023-09-24] VITALS (33 sets, daily range): BP systolic 95–163; BP diastolic 61–109
[2023-09-24] MEDS ORDERED: FOLI1 PO (00:08)
[2023-09-24] MEDS ORDERED: Vitamin B-150 MG PO (00:08)
--- NOTE | 2023-09-24 01:13 | NUR ---
ARRIVAL TO UNIT/ASSUMPTION OF CARE AFTER RECEIVING REPORT FROM PAT ED RN, PATIENT TRANSFERRED TO UNIT VIA ED [facility] AT APPROX 2355. PATIENT ALERT, ABLE TO TRANSFER HIMSELF WITH MINIMAL ASSIST FROM GURNEY TO BED. CIWA OBTAINED AT 13. EXPERIENCING AUDITORY AND VISUAL HALLUCINATIONS. OBVIOUS TREMORS NOTED. ANXIOUS IN ROOM, RESTLESS. PULLING AT LINES, CORDS. DIFFICULTY FOLLOWING CONVERSATION. POOR HISTORIAN. COOPERATIVE WITH CARE AT THIS TIME. PO LIBRIUM AND IV ATIVAN ADMINISTERED PER EMAR. TELEMETRY SHOWING SINUS 70's. BP STABLE, SBP 140's. DENIES CHEST PAIN OR PRESSURE. ON ROOM AIR, SATS >92%. PATIENT CONTINUING TO DEMONSTRATE INCREASED RESTLESSNESS, ANXIETY. PULLING AT CORDS, DEVICES. SETTING OFF BED ALARM MULTIPLE TIMES. MEDICATING PER EMAR. CIWA REMAINS >10. WILL CONTINUE TO MONITOR.
--- NOTE | 2023-09-24 01:30 | NUR ---
PATIENT REQUESTING TO AMBULATE OUTSIDE OF ROOM DUE TO RESTLESSNESS. PATIENT IS CURRENTLY AMBULATING AROUND UNIT WITH NNAMDI PCT. CURRENT CIWA 15. PLAN TO MEDICATE PER EMAR UPON RETURN TO ROOM.
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
--- NOTE | 2023-09-24 02:52 | NUR ---
SEE PREVIOUS NOTES REGARDING INCREASED WITHDRAWAL. PATIENT INCREASINGLY CONFUSED, UNABLE TO REORIENT TO CURRENT SITUATION. BECOMING INCREASINGLY AGITATED, NON-COOPERATIVE WITH CARE. INCREASED VISUAL AND AUDITORY HALLUCINATIONS, SPEAKING TO PEOPLE NOT IN ROOM. ATTEMPTING TO AMBULATE OUT OF ROOM TO SPEAK WITH PEOPLE NOT THERE. INCREASED VISUAL TREMOR NOTED. CIWA >20. REQUIRING MULTIPLE STAFF MEMBERS IN ROOM FOR PATIENT SAFETY. ALTAF CINTRON CONTACTED MD WITH UPDATE. PATIENT NOW ICU STATUS. REPORT GIVEN TO ACCEPTING HOT DOG VENDOR. PATIENT TRANSFERRED TO ICU VIA BED, REQUIRING 4 STAFF MEMBERS FOR TRANSFER.
[2023-09-24 04:51] LABS: Albumin, Blood 3.5 g/dL (3.4-5.0); Albumin/Globulin Ratio 1.4 (0.8-1.8); Bilirubin, Total 1.4 mg/dL (0.1-1.0); Calcium, Blood 8.3 mg/dL (8.5-10.1); Creatinine, Blood 0.63 mg/dL (0.60-1.20); Globulin, Blood 2.5 g/dL (2.2-4.0); Magnesium, Blood 2.2 mg/dL (1.6-2.4); Potassium, Blood 3.4 mmol/L (3.5-5.5)
--- NOTE | 2023-09-24 06:58 | NUR ---
SUMMARY PATIENT ARRIVED TO ICU 10 AT 0215, TRANSFER TO ICU BED USING SLIDER SHEET AND PLACED ON ICU MONITORS. PATIENT CONFUSED AND ANGRY, HALLUCINATING VISUAL AND AUDITORY, ATTEMPTING TO GET OUT OF BED, BUT UNABLE TO VERBALIZE WHY HE FEELS THAT HE NEEDS TO GET UP, REFUSING TO BELIEVE THAT HE IS IN THE HOSPITAL. MULTIPLE DOSES OF ATIVAN AND LIBRIUM GIVEN IN PCU BEFORE TRANSFER. PATIENT VERY STRONG, PLACED IN TUFF CUFFS X4 TO KEEP LINES AND CORDS IN PLACE AND TO KEEP PATIENT FROM CLIMBING OUT OF BED WITHOUT ASSISTANCE. PATIENT VERY IMPULSIVE AND UNPREDICTABLE. PRECEDEX DRIP STARTED, NOW TITRATED UP TO 0.7 MCG. PATIENT NOW SLEEPING, AWAKENS TO STIMULI AND ASSISTING SLIGHTLY WITH TURN AND LINEN CHANGE AFTER BEING INCONT OF URINE. CONDOM CATH AND ATTENDS PLACED.
--- NOTE | 2023-09-24 16:58 | NUR ---
SHIFT SUMMARY NO ACUTE CHANGES THIS SHIFT. PT REMAINED SEDATED WITH PRECEDEX AT 0.5 MCG/KG/HR. PT AWAKENS TO VERBAL AND NOXIOUS STIMULI. PT IS CONFUSED, RESTLESS, AND HAS AUDITORY AND VISUAL HALLUCINATIONS WHEN AWAKE. PT IS NOT REDIRECTABLE WHEN AWAKE. PT MED WITH ATIVAN PRN PER EMAR. PT REMAINS WITH TAT BILAT WRIST RESTRAINTS DUE TO PT STRENGTH. VITAL SIGNS HAVE REMAINED STABLE. PT ON ROOM AIR. NS INFUSING TKO THROUGH PIV. CONDOM CATH REMAINS IN PLACE. BRUISING THROUGHOUT CHEST/SHOULDER AND LEGS REMAINS UNCHANGED. NO VISITORS IN TO SEE PT THIS SHIFT. WILL CONTINUE TO MONITOR AND REPORT OFF TO ONCOMING RN.
--- NOTE | 2023-09-24 20:26 | NUR ---
PATIENT SLEEPING, AWAKING TO SLIGHT STIMULI. ANSWERING QUESTIONS YET ONLY ORIENT TO SELF. CONDOM CATH FELL OFF AND PATIENT INCONT OF LARGE AMT OF URINE. PATIENT ABLE TO ASSIST WITH REPOSITIONING AND COOPERATIVE WITH CARE. BILAT WRIST RESTRAINTS CONTINUE TO REMIND PATIENT TO NOT PULL ON LINES AND TUBES. PRECEDEX TITRATED TO 0.4 AND ATIVAN GIVEN FOR ELEVATED CIWA.
[2023-09-25] VITALS (18 sets, daily range): BP systolic 99–128; BP diastolic 59–87
--- NOTE | 2023-09-25 02:43 | NUR ---
ASSUMPTION OF CARE: INFUSING: TKO NS 10mL/Hr PRECEDEX .4 ON ASUUMPTION OF CARE PATIETN RESTING WELL, ABLE TO WAKE TO VERBAL COMMANDS, CAN ANSWER QUESTIONS. HR IN THE LOWER 60'S BLOOD PRESSURE WNL REMAINING ON RA, SELF REPOSITIONS, WITH UPPER SWR, MAJOR REPOSITIONS Q2. RESTRAINT MANAGEMENT Q2. PATIETN IS COMFORTABLE, ONLY RECIEVING ATIVAN FOR INCREASING ETOH CIWA SCORE. NO OBVIOUS SIGNS OF CHEST PAIN. MAINTAINING ON RA WITH NO OBVIOUS DESATURATION. CONDOM CATH IN PLACE. NO MAJOR CONCERNS
[2023-09-25 04:13] LABS: Hematocrit 38.3 % (37.0-53.0); Hemoglobin 13.3 g/dL (13.5-17.5); Mean Corpuscular HGB 33.1 pg (26.0-34.0); Mean Corpuscular HGB Conc 34.7 g/dL (31.5-36.5); Mean Corpuscular Volume 95 fL (80-100); Mean Platelet Volume 10.8 fL (9.1-12.4); Platelet Count 66 K/mm3 (150-400); RDW Standard Deviation 48.3 fL (35.1-46.3); Red Blood Cell Count 4.02 M/mm3 (4.30-5.90); White Blood Cell Count 6.12 K/mm3 (4.00-11.30)
[2023-09-25 04:37] LABS: Albumin, Blood 3.5 g/dL (3.4-5.0); Anion Gap 7 mmol/L (6-16); Blood Urea Nitrogen 14 mg/dL (8-24); Bun/Creatinine Ratio 23.6 (12.0-20.0); CO2, Blood 23 mmol/L (21-32); Calcium, Blood 8.6 mg/dL (8.5-10.1); Chloride, Blood 110 mmol/L (98-108); Creatinine, Blood 0.59 mg/dL (0.60-1.20); Glomerular Filtration Rate 120 (60-); Glucose, Blood 70 mg/dL (70-99); Magnesium, Blood 1.9 mg/dL (1.6-2.4); Potassium, Blood 4.1 mmol/L (3.5-5.5); Sodium, Blood 140 mmol/L (136-145)
--- NOTE | 2023-09-25 07:36 | NUR ---
EOS: PATIENT IS ALERT AND ORIENTED X 2-3 AT TIMES. MOSTLY SELF, HAS TO BE REORIENTED TO ROOM, WITH PRECEDEX A T.4 VSS HR 58-64, DEPENDING ON SEVERITY OF WITHDRAWAL, ESCALATES QUICKLY UP TO 24 FROM 7-8. HOWEVER, WITH REGIMENT OF ATIVAN Q2 AT 2mg, PATIETN OVERALL ETOH WITHDRAWAL LOOKS DRAMATICALLY IMPROVED. WHEN SCORED.PATIENT STILL IN SBWR. Q2 CHECKS, SELF REPOSITIONS CONDOM CATH IN PLACE, REPOSITIONED WELL. BY SELF AND 2P PRN Q2. PATIENT TKO IN LEFT HAND. LAC PRECEDEX, VSS AFEBRILE. DENIES PAIN OF ANY KIND. SHIFT REPORT GIVEN TO KALEB RN.
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
--- NOTE | 2023-09-25 15:21 | NUR ---
NURSING ICU TRANSFER SUMMARY: Pt has done well t/o the shift. VS have remained stable, cardiac and respiratory status unchanged. Precedex titrated down t/o a.m. and discontinued at 1130 a.m., b/l wrist restraints also removed. Pt spent lunch OOB in recliner, tolerated well, good appetite. Updated PMD, new d/o received. Pt changed to medical status w/o tele. Pt currently ambulating in room with steady gait. Remains oriented and has been calling appropriately, pleasant and cooperative w/care. Condom cath removed, voiding independently using urinal. No s/s of acute distress, awaiting room assignment for xfer. Monitor until report is given to accepting RN and w/c xfer to medical floor is complete.
--- NOTE | 2023-09-25 17:35 | NUR ---
NURSING ICU DAYSHIFT SUMMARY: Pt has done well t/o the shift. VS have remained stable, cardiac and respiratory status unchanged. Precedex titrated down t/o a.m. and discontinued at 1130 a.m., b/l wrist restraints also removed. Pt spent meals OOB in recliner, tolerated well, good appetite. Updated PMD, new d/o received. Pt changed to medical status w/o tele. Pt currently ambulating in room with steady gait. Remains oriented and has been calling appropriately, pleasant and cooperative w/care. Condom cath removed, voiding independently using urinal. No s/s of acute distress, pt hopeful for discharge home in a.m. Call light in reach, cont to monitor until rpt is given to ELDA RN.
--- NOTE | 2023-09-25 20:08 | NUR ---
PATIENT AWAKE, A&OX3, UP IN ROOM WITHOUT DIFFICULTY. PATIENT AGREE TO CALL IF HAVING ANY FEELING OF ANXIETY, OR RESTLESS. MED NO TELE STATUS.
[2023-09-26 04:22] VITALS: BP 125/85
--- NOTE | 2023-09-26 06:16 | NUR ---
SUMMARY PATIENT SLEEPING MOST OF THE NIGHT. UP IN ROOM WITHOUT DIFFICULTY. CIWA REMAINING 0 T/O NIGHT. NO NEED FOR LIBRIUM OR ATIVAN T/O NIGHT.
[2023-09-26 08:46] VITALS: BP 136/93
--- NOTE | 2023-09-26 09:37 | NUR ---
ASSUMED CARE CARE ASSUMED OF PT AT 0700, REPORT GIVEN BY SHWETA CINTRON. PT A/O X4, AMBULATING AROUND ROOM INDEPENDENTLY. VSS. CIWA 3 D/T PT HAVING MILD HEADACHE. PLAN FOR PT TO DISCHARGE TODAY.
[2023-09-26] MEDS ORDERED: DULERA 100 MCG/13 GM INH (11:25)
--- NOTE | 2023-09-26 11:56 | NUR ---
Pt discharged at 1145. Pt verbalized understanding of all discharge instructions. All personal belongings sent home with patient. Pt ambulated independently to [facility] for taxi pickup.
== END 2023-09-26 11:55 | disposition home or self-care (01) | DRG 897 ==
LOC: ER 19:27 → PCU 23:26 → ICUE 23:26 → PCU 23:49 → ICUE 09-24 02:15
PROVIDERS: Family Medicine; Internal Medicine; Student in an Organized Health Care Education/Training Program; ADMIT Student in an Organized Health Care Education/Training Program
PROC: HZ2ZZZZ Detoxification Services for Substance Abuse Treatment (ICD-10-PCS; principal; 2023-09-23)
DX: F10.239 Alcohol dependence with withdrawal, unspecified (principal); F32.A Depression, unspecified; D69.6 Thrombocytopenia, unspecified; K74.60 Unspecified cirrhosis of liver; F41.9 Anxiety disorder, unspecified; I10 Essential (primary) hypertension; E87.6 Hypokalemia; J45.909 Unspecified asthma, uncomplicated; E83.42 Hypomagnesemia; Z87.19 Personal history of other diseases of the digestive system; Z98.890 Other specified postprocedural states; Z79.51 Long term (current) use of inhaled steroids; Z79.899 Other long term (current) drug therapy; Z86.79 Personal history of other diseases of the circulatory system; Z87.891 Personal history of nicotine dependence; Z90.49 Acquired absence of other specified parts of digestive tract
CPT/HCPCS: 36415; 80053; 80069; 83735; 85025; 85027; 93005; 93010; 94640; 94664; 94760; 94762; 96374; 99285-25; A9270; J2060; J3411; J3475; J3480; J7050

== ENCOUNTER → 2024-01-09 | Outpatient (CLI) | payer OTHER ==
[~2024-01-09] MED LIST changes: +ALBU90OI INH; +DULERA 100 MCG/13 GM INH; +DULERA 200 MCG-13 GM INH; +FOLI1 PO; +Vitamin B-150 MG PO
[2024-01-09 19:45] LABS: BASOPHILS ABSOLUTE AUTO 0.06 K/mm3 (0.00-0.23); BASOPHILS PERCENT AUTO 1 % (0-2); EOSINOPHILS ABSOLUTE AUTO 0.13 K/mm3 (0.00-0.68); EOSINOPHILS PERCENT AUTO 3 % (0-6); Hematocrit 39.1 % (37.0-53.0); Hemoglobin 13.1 g/dL (13.5-17.5); IMMATURE GRAN ABSOLUTE AUTO 0.02 K/mm3 (0.00-0.10); IMMATURE GRAN PERCENT AUTO 0 % (0-1); LYMPHOCYTES ABSOLUTE AUTO 1.02 K/mm3 (0.84-5.20); LYMPHOCYTES PERCENT AUTO 20 % (21-46); MONOCYTES ABSOLUTE AUTO 0.35 K/mm3 (0.16-1.47); MONOCYTES PERCENT AUTO 7 % (4-13); Mean Corpuscular HGB 32.6 pg (26.0-34.0); Mean Corpuscular HGB Conc 33.5 g/dL (31.5-36.5); Mean Corpuscular Volume 97 fL (80-100); Mean Platelet Volume 10.5 fL (9.1-12.4); NEUTROPHILS ABSOLUTE AUTO 3.59 K/mm3 (1.96-9.15); NEUTROPHILS PERCENT AUTO 69 % (41-73); Platelet Count 212 K/mm3 (150-400); RDW Coefficient Variation 13.7 % (11.7-14.2); RDW Standard Deviation 49.1 fL (35.1-46.3); Red Blood Cell Count 4.02 M/mm3 (4.30-5.90); White Blood Cell Count 5.17 K/mm3 (4.00-11.30)
[2024-01-09 20:47] LABS: Albumin, Blood 4.5 g/dL (3.4-5.0); Albumin/Globulin Ratio 1.5 (0.8-1.8); Bilirubin, Total 0.5 mg/dL (0.1-1.0); Bun/Creatinine Ratio 14.9 (12.0-20.0); Calcium, Blood 9.7 mg/dL (8.5-10.1); Creatinine, Blood 0.6 mg/dL (0.60-1.20); Potassium, Blood 4.3 mmol/L (3.5-5.5); Total Protein, Blood 7.5 g/dL (6.4-8.2)
== END ==
LOC: LAB SHORT 19:14 → LAB 19:14
PROVIDERS: Family Medicine
DX: K92.2 Gastrointestinal hemorrhage, unspecified (principal)
CPT/HCPCS: 80053; 85025

== ENCOUNTER 2024-02-08 00:12 | Inpatient (IN) | payer OTHER ==
[2024-02-08] VITALS (40 sets, daily range): BP systolic 101–150; BP diastolic 72–118
[~2024-02-08] VITALS: Ht 172.7 cm; Wt 83.1 kg
[~2024-02-08 00:12] MED LIST changes: +SERT25 PO
[2024-02-08] MEDS ORDERED: ALBU2.5V5 INH (00:23)
[2024-02-08] MEDS ORDERED: FOLIC ACID0.4 MG PO (00:23)
[2024-02-08] MEDS ORDERED: B-12 COMPL1000 MCG/2 IM (00:23)
[2024-02-08 00:40] LABS: BASOPHILS ABSOLUTE AUTO 0.02 K/mm3 (0.00-0.23); BASOPHILS PERCENT AUTO 1 % (0-2); EOSINOPHILS ABSOLUTE AUTO 0.07 K/mm3 (0.00-0.68); EOSINOPHILS PERCENT AUTO 2 % (0-6); Hematocrit 37.1 % (37.0-53.0); Hemoglobin 12.3 g/dL (13.5-17.5); IMMATURE GRAN ABSOLUTE AUTO 0.01 K/mm3 (0.00-0.10); IMMATURE GRAN PERCENT AUTO 0 % (0-1); LYMPHOCYTES ABSOLUTE AUTO 0.81 K/mm3 (0.84-5.20); LYMPHOCYTES PERCENT AUTO 26 % (21-46); MONOCYTES ABSOLUTE AUTO 0.39 K/mm3 (0.16-1.47); MONOCYTES PERCENT AUTO 12 % (4-13); Mean Corpuscular HGB 31.5 pg (26.0-34.0); Mean Corpuscular HGB Conc 33.2 g/dL (31.5-36.5); Mean Corpuscular Volume 95 fL (80-100); Mean Platelet Volume 11.9 fL (9.1-12.4); NEUTROPHILS ABSOLUTE AUTO 1.86 K/mm3 (1.96-9.15); NEUTROPHILS PERCENT AUTO 59 % (41-73); RDW Coefficient Variation 13.6 % (11.7-14.2); RDW Standard Deviation 47.9 fL (35.1-46.3); White Blood Cell Count 3.16 K/mm3 (4.00-11.30)
[2024-02-08 00:51] LABS: Platelet Count 30 K/mm3 (150-400)
[2024-02-08 01:02] LABS: Albumin/Globulin Ratio 1.4 (0.8-1.8); Bilirubin, Total 1.1 mg/dL (0.1-1.0); Bun/Creatinine Ratio 21.7 (12.0-20.0); Calcium, Blood 9.7 mg/dL (8.5-10.1); Creatinine, Blood 0.83 mg/dL (0.60-1.20); Globulin, Blood 2.9 g/dL (2.2-4.0); Potassium, Blood 4.2 mmol/L (3.5-5.5); Total Protein, Blood 6.9 g/dL (6.4-8.2)
[2024-02-08] MEDS ORDERED: LORazepam 2 MG/ML 1ML Injection IV ONE ×2 (01:15→01:40)
[2024-02-08] MEDS ORDERED: Acetaminophen 325 MG TABLET PO PRN (02:15)
[2024-02-08] MEDS ORDERED: Acetaminophen 650 MG Supp PR PRN (02:15)
[2024-02-08] MEDS ORDERED: LORazepam 2 MG/ML 1ML Injection IV PRN ×3 (02:15)
[2024-02-08] MEDS ORDERED: Lactated Ringer's 1,000 ML IV SCH (03:00)
--- NOTE | 2024-02-08 03:33 | NUR ---
ARRIVAL TO ICU PT ARRIVED TO ICU 9 AT 0302 VIA ED BED AND TRANSFERED OVER VIA SLIDE SHEET. FOUR RN'S, TWO CLARIFICATION OPERATOR'S, AND SECURITY AT BEDSIDE TO SAFELY TRANSFER OVER, HE IS IN FOUR POINT TAT'S FOR ALCOHOL WITHDRAWLS; A TOTAL OF 22MG OF ATIVAN GIVEN DURING STAY IN ED. HE IS RESTLESS, HALLUCINATING, NOT FOLLOWING DIRECTIONS AND NOT MAKING SENTENCES, MOSTLY MUMBLING; PRECEDEX STARTED AT 0.4MCG/KG/HR. SPO2 >97% ON RA. AFEBRILE. HR 70'S. SBP 110-120'S. LARGE UNMEASURED VOID BEFORE ARRIVING TO ICU; CONDOM CATH PLACED FOR INCONTINENCE. HE IS DIAPHORETIC. LR NOW INFUSING AT 75ML/HR. SEE ADMISSION ASSESSMENT FOR FULL ASSESSMENT.
[2024-02-08] MEDS ORDERED: CATAPRES0.1 MG PO (05:38)
[2024-02-08] MEDS ORDERED: GABA300 PO (05:39)
[2024-02-08] MEDS ORDERED: HYDPAM50 PO (05:41)
[2024-02-08] MEDS ORDERED: LORA2 PO (05:43)
[2024-02-08] MEDS ORDERED: METO25 PO (05:44)
[2024-02-08] MEDS ORDERED: MULVITA PO (05:45)
[2024-02-08] MEDS ORDERED: PROM25 PO (05:46)
[2024-02-08] MEDS ORDERED: B-1100 M1 PO (05:47)
[2024-02-08] MEDS ORDERED: TRAZ50 PO (05:48)
[2024-02-08 05:50] LABS: BASOPHILS ABSOLUTE AUTO 0.01 K/mm3 (0.00-0.23); BASOPHILS PERCENT AUTO 0 % (0-2); EOSINOPHILS ABSOLUTE AUTO 0.04 K/mm3 (0.00-0.68); EOSINOPHILS PERCENT AUTO 2 % (0-6); Hematocrit 35.8 % (37.0-53.0); Hemoglobin 12.1 g/dL (13.5-17.5); IMMATURE GRAN PERCENT AUTO 0 % (0-1); LYMPHOCYTES ABSOLUTE AUTO 0.44 K/mm3 (0.84-5.20); LYMPHOCYTES PERCENT AUTO 18 % (21-46); MONOCYTES ABSOLUTE AUTO 0.26 K/mm3 (0.16-1.47); MONOCYTES PERCENT AUTO 11 % (4-13); Mean Corpuscular HGB Conc 33.8 g/dL (31.5-36.5); Mean Corpuscular Volume 95 fL (80-100); Mean Platelet Volume 11.7 fL (9.1-12.4); NEUTROPHILS ABSOLUTE AUTO 1.71 K/mm3 (1.96-9.15); NEUTROPHILS PERCENT AUTO 70 % (41-73); RDW Coefficient Variation 13.4 % (11.7-14.2); RDW Standard Deviation 46.7 fL (35.1-46.3); Red Blood Cell Count 3.78 M/mm3 (4.30-5.90); White Blood Cell Count 2.46 K/mm3 (4.00-11.30)
[2024-02-08 05:56] LABS: International Normalized Ratio 1.16; Prothrombin Time Results 12.3 Sec (9.7-11.5)
[2024-02-08 06:03] LABS: Platelet Count 25 K/mm3 (150-400)
[2024-02-08 06:32] LABS: Albumin, Blood 3.8 g/dL (3.4-5.0); Albumin/Globulin Ratio 1.4 (0.8-1.8); Bilirubin, Total 1.5 mg/dL (0.1-1.0); Bun/Creatinine Ratio 29.8 (12.0-20.0); Calcium, Blood 9.3 mg/dL (8.5-10.1); Creatinine, Blood 0.57 mg/dL (0.60-1.20); Globulin, Blood 2.7 g/dL (2.2-4.0); Magnesium, Blood 1.6 mg/dL (1.6-2.4); Percent Saturation 42.6 % (20.0-50.0); Potassium, Blood 3.9 mmol/L (3.5-5.5); Total Protein, Blood 6.5 g/dL (6.4-8.2)
--- NOTE | 2024-02-08 06:44 | NUR ---
END OF SHIFT SUMMARY NO ACUTE EVENTS SINCE LAST NOTE. WHEN STIMULATED HE STARTS TO PULL AT RESTRAINTS, ATTEMPT TO SIT UP AND GET OUT OF BED; WHEN NOT STIMULATED HE IS SLEEPING AND SNORING; PRECEDEX INFUSING AT 0.4MCG/KG/HR. SPO2 > 97% ON RA. AFEBRILE. HR 50-70'S. SBP 140'S. NO BM. CONDOM CATH IN PLACE WITH NO OUTPUT SINCE ARRIVAL TO ICU. WILL REPORT TO AM RN WHEN AVAILABLE.
[2024-02-08] MEDS ORDERED: Thiamine HCl 100 MG in NS 50 ML IV SCH (09:00)
[2024-02-08] MEDS ORDERED: Folic Acid 1 MG in NS 50 ML IV SCH (09:00)
--- NOTE | 2024-02-08 17:03 | NUR ---
SHIFT SUMMARY PT IS A/O X4, PRECEDEX TITRATED DOWN TO 0.2, PT WAKES UP REQUESTING RESTRAINTS OFF. CIWA REMAINS < 8. ABLE TO REMOVE RESTRAINTS, PT USING CALL LIGHT APPROPRIATELY. SB 50-60, BP WNL. 02 SAT >94% ON ROOM AIR. DENIES NAUSEA, NO BM THIS SHIFT. REQUESTS WATER WHEN AWAKE, SWALLOWS WELL, DIET ORDERED TO START THIS EVENING. PT HAD NOT VOIDED BY NOON. BLADDER SCAN REVEALED > 999ML IN BLADDER. ENCOURAGED PT TO URINATE, UNABLE TO VOID > 50ML URINE. CHRISTOPHER PLACED PER DR. KAISER ORDER. PT REPORTS RELIEF OF BLADDER FULLNESS. SKIN INTACT WITH SOME SCATTERED BRUISING AND A SCAB TO LOWER LIP. PIV X2, LR INFUSING AT 75 ML/HR. PRECEDEX REMAINS ON AT 0.2. NO FAMILY AT BEDSIDE, PT ATTEMPTED TO CALL HIS GF, NO ANSWER. POC ONGOING.
[2024-02-08 18:30] LABS: Source, Urine Foley catheter
[2024-02-08 18:37] LABS: Appearance, Urine Clear (Clear); Bilirubin, Urine Neg (Neg); Blood, Urine Neg (Neg); Color, Urine Yellow (P-Yellow); Glucose Qualitative, Urine Neg (Neg); Ketones, Urine Neg (Neg); Leukocyte Esterase, Urine Neg (Neg); Nitrite, Urine Neg (Neg); Protein, Urine Neg (Neg); Urobilinogen, Urine NORM (Normal)
[2024-02-08] MEDS ORDERED: Ondansetron HCl 2 MG / ML 2ML Vial IV PRN (19:45)
[2024-02-08] MEDS ORDERED: ChlordiazePOXIDE 25 MG Cap PO PRN (19:45)
--- NOTE | 2024-02-08 21:35 | NUR ---
ASSUMED CARE @ 1900 WITH HALEY CINTRON PT IS A/O X 4 WITH BOUTS OF CONFUSION, AND HALLUCINATIONS BUT IS ABLE TO REORIENT EASILY, PT MADE COMMENTS ABOUT DISCHARGE BUT AFTER EDUCATION SEEMED TO UNDERSTAND THAT THEY WOULD BE STAYING THE NIGHT, PT BECAME AGGITATED EARLY INTO SHIFT, PRECIDEX NOW 0.4 MCG/KG/HR, ATIVAN AND LIBRIUM GIVEN. PT LUNGS CLEAR ON RA, SPO2 98%. NSR-SINUS DIEUDON[place] 50'S-70'S, BP STABLE WITH MAP > 65. NORMAL BOWEL TONES. CHRISTOPHER IS PATENT, SECURE AND DRAINING TO GRAVITY. HAS SMALL SCAB ON BOTTOM LIP. PT RESTING IN BED WITH CALL LIGHT IN REACH AND BED AT LOWEST POSITION.
[2024-02-08] MEDS ORDERED: OLANZapine 10 MG Vial IM ONE ×2 (22:15→23:55)
--- NOTE | 2024-02-08 22:23 | NUR ---
REPORT GIVEN TO DOMI Morgan RN WHO IS ASSUMING CARE OF ICU 9 NOW
[2024-02-09] VITALS (52 sets, daily range): BP systolic 110–168; BP diastolic 63–147
--- NOTE | 2024-02-09 00:27 | NUR ---
ASSUMPTION OF CARE/PATIENT UPDATE THIS RN ASSUMED CARE OF PATIENT AT 2220. CALL PLACED TO MD HOUSER REGARDING PT CONTINUED HIGH CIWA AND MAX DOSING OF ATIVAN. MD WITH OK TO INCREASE PRECEDEX TO 1.5 IF NEEDED AND FOR X2 DOSES OF 5MG ZYPREXA 1 HOUR APART IF NEEDED. SEE EMAR. PRECEDEX CURRENTLY AT 0.9MCG/KG/HR. LR INFUSING PER EMAR. CATHETER PATENT AND DRAINING TO GRAVITY. BED IN LOWEST POSITION AND CALL LIGHT WITHIN REACH. BED ALARM ON
[2024-02-09 03:29] LABS: BASOPHILS ABSOLUTE AUTO 0.02 K/mm3 (0.00-0.23); BASOPHILS PERCENT AUTO 1 % (0-2); EOSINOPHILS ABSOLUTE AUTO 0.07 K/mm3 (0.00-0.68); EOSINOPHILS PERCENT AUTO 2 % (0-6); Hematocrit 39.9 % (37.0-53.0); Hemoglobin 13.6 g/dL (13.5-17.5); IMMATURE GRAN ABSOLUTE AUTO 0.01 K/mm3 (0.00-0.10); IMMATURE GRAN PERCENT AUTO 0 % (0-1); LYMPHOCYTES ABSOLUTE AUTO 0.54 K/mm3 (0.84-5.20); LYMPHOCYTES PERCENT AUTO 14 % (21-46); MONOCYTES ABSOLUTE AUTO 0.29 K/mm3 (0.16-1.47); MONOCYTES PERCENT AUTO 8 % (4-13); Mean Corpuscular HGB 31.5 pg (26.0-34.0); Mean Corpuscular HGB Conc 34.1 g/dL (31.5-36.5); Mean Corpuscular Volume 92 fL (80-100); Mean Platelet Volume 11.8 fL (9.1-12.4); NEUTROPHILS ABSOLUTE AUTO 2.92 K/mm3 (1.96-9.15); NEUTROPHILS PERCENT AUTO 76 % (41-73); RDW Coefficient Variation 13.2 % (11.7-14.2); RDW Standard Deviation 44.8 fL (35.1-46.3); Red Blood Cell Count 4.32 M/mm3 (4.30-5.90); White Blood Cell Count 3.85 K/mm3 (4.00-11.30)
[2024-02-09 03:50] LABS: Platelet Count 30 K/mm3 (150-400)
[2024-02-09 03:53] LABS: Albumin, Blood 4.1 g/dL (3.4-5.0); Albumin/Globulin Ratio 1.3 (0.8-1.8); Bilirubin, Total 1.4 mg/dL (0.1-1.0); Calcium, Blood 9.7 mg/dL (8.5-10.1); Creatinine, Blood 0.53 mg/dL (0.60-1.20); Globulin, Blood 3.1 g/dL (2.2-4.0); Magnesium, Blood 1.4 mg/dL (1.6-2.4); Potassium, Blood 4.1 mmol/L (3.5-5.5); Total Protein, Blood 7.2 g/dL (6.4-8.2)
--- NOTE | 2024-02-09 04:39 | NUR ---
SHIFT SUMMMARY SEE PREVIOUS NOTE. PT REMAINS ON PRECEDEX 0.9MCG/KG/HR. TITRATING NEEDED. MEDICATING PER EMAR WITH ATIVAN FOR WITHDRAWAL. SEE CIWA ASSESSMENTS. PT APPEARS MORE RELAXED AT THIS TIME THAN PREVIOUSLY IN THE NOC SHIFT. CONTINUES TO BE CONFUSED, ORIENTED TO SELF. OCCASIONALLY ABLE TO BE REORIENTED TO PLACE/SITUATION. REMAINS IN 4 POINT RESTRAINTS. PULLING AT RESTRAINTS OCCASIONALLY. HALLUCINATIONS NOTED, BOTH VISUAL/AUDITORY. FOLLOWING COMMANDS WHEN NOT AGGITATED. REPOSITIONING AND OFFERING FLUIDS OFTEN. CHRISTOPHER CATHETER PATENT AND DRAINING TO GRAVITY. VITALS STABLE AT THIS TIME. SR/SB ON MONITOR. ON RA. BED IN LOWEST POSITION AND CALL LIGHT WITHIN REACH. THIS RN WILL REPORT TO ONCFITO SANDOVAL RN.
[2024-02-09] MEDS ORDERED: Mag Sulfate 1 GM/D5% 100ML 100 ML IV ONE (05:05)
[2024-02-09] MEDS ORDERED: NS 250 ML IV PRN (05:10)
--- NOTE | 2024-02-09 09:40 | NUR ---
ASSUMED CARE OF PT AT 0715 SEDATED, CURRENTLY ON PRECEDEX DRIP WITH ATIVAN IVP PRN. HAS BEEN COMBATIVE AND HALLUCINATING THROUGHOUT THE NIGHT PER REPORT. PT IS AGAIN IN RESTRAINTS ON ALL 4 LIBS. OPENS EYES AND ANSWERS QUESTIONS BUT CONTINUES TO BE CONFUSED. SR-SB, BP WNL, ON CONTINUOUS CARDIAC MONITORING. 02 SAT 98% ON ROOM AIR, LUNGS CTA X ALL PAVON. NPO DUE TO MENTAL STATUS, DID EAT DINNER LAST EVENING AND WAS ABLE TO TOLERATE FLUIDS PO, BS HYPOACTIVE. CHRISTOPHER IN PLACE DUE TO ACUTE URINARY RETENTION, PATENT AND DRAINING CLEAR YELLOW URINE. SKIN UNCHANGED, INTACT WITH THE EXCEPTION OF SOME SCATTERED BRUISING. LESION ON BOTTOM LIP IS HEALING WELL AND MUCH IMPROVED SINCE YESTERDAY. PIV X2, BOTH FLUSH WELL. NO FAMILY AT BEDSIDE. POC ONGOING
[2024-02-09] MEDS ORDERED: NS 1,000 ML IV PRN (13:00)
--- NOTE | 2024-02-09 18:26 | NUR ---
END OF SHIFT SUMMARY PT HAS BEEN SEDATED MOST OF THE SHIFT WITH RASS 0 TO -1. PRECEDEX TITRATED ORDERED. PRN ATIVAN GIVEN FOR CIWA OF 24-26. PT ABLE TO MAKE NEEDS KNOWN. SR-SB, BP WNL. 02 SAT 100% ON ROOM AIR. LUNGS CTA X ALL PAVON. NPO DUE TO SOMNOLENCE, ABLE TO DRINK WATER WHEN AWAKE, NO ISSUES WITH SWALLOWING. CHRISTOPHER TO GRAVITY PATENT AND DRAINING CLEAR YELLOW URINE. SKIN UNCHANGED. RESTRAINED X4 LIMBS DUE TO COMBATIVENESS WHEN AWAKE. PIV X2, BOTH FLUSH WELL. PRECEDEX AND NS INFUSING. NO FAMILY AT BEDSIDE. UPDATE PROVIDED VIA PHONE TO SHANNON CATHERINE. CALL RECEIVED FROM [facility], PT WAS TO BE D/C'D TOMORROW FROM THEIR FACILITY AND DUE TO STILL BEING HOSPITALIZED WILL NOT BE RETURNING TO THEIR FACILITY UPON HOSP D/C. THEY WILL HAVE BELONGINGS DELIVERED TO HOSPITAL SUNDAY. THIS MESSAGE WAS RELAYED TO SHANNON, SHE VERBALIZES UNDERSTANDING AND IS IN AGREEMENT. SHANNON WOULD LIKE PT TO BE ABLE TO ATTEND AN INPATIENT REHAB UPON D/C FROM HOSPITAL. NURSE AGRICULTURAL ADVISER WILL NEED TO FOLLOW UP TO SEE IF THIS IS POSSIBLE. ADVISED GF. POC ONGOING.
[2024-02-10] VITALS (10 sets, daily range): BP systolic 94–141; BP diastolic 60–108
[2024-02-10 03:45] LABS: BASOPHILS ABSOLUTE AUTO 0.03 K/mm3 (0.00-0.23); BASOPHILS PERCENT AUTO 1 % (0-2); EOSINOPHILS ABSOLUTE AUTO 0.07 K/mm3 (0.00-0.68); EOSINOPHILS PERCENT AUTO 2 % (0-6); Hematocrit 39.9 % (37.0-53.0); Hemoglobin 13.1 g/dL (13.5-17.5); IMMATURE GRAN ABSOLUTE AUTO 0.01 K/mm3 (0.00-0.10); IMMATURE GRAN PERCENT AUTO 0 % (0-1); LYMPHOCYTES ABSOLUTE AUTO 0.88 K/mm3 (0.84-5.20); LYMPHOCYTES PERCENT AUTO 23 % (21-46); MONOCYTES ABSOLUTE AUTO 0.64 K/mm3 (0.16-1.47); MONOCYTES PERCENT AUTO 17 % (4-13); Mean Corpuscular HGB 31.5 pg (26.0-34.0); Mean Corpuscular HGB Conc 32.8 g/dL (31.5-36.5); Mean Corpuscular Volume 96 fL (80-100); Mean Platelet Volume 12.5 fL (9.1-12.4); NEUTROPHILS ABSOLUTE AUTO 2.13 K/mm3 (1.96-9.15); NEUTROPHILS PERCENT AUTO 57 % (41-73); RDW Coefficient Variation 13.4 % (11.7-14.2); RDW Standard Deviation 47.5 fL (35.1-46.3); Red Blood Cell Count 4.16 M/mm3 (4.30-5.90); White Blood Cell Count 3.76 K/mm3 (4.00-11.30)
[2024-02-10 03:57] LABS: Platelet Count 38 K/mm3 (150-400)
[2024-02-10 04:05] LABS: Albumin, Blood 3.5 g/dL (3.4-5.0); Albumin/Globulin Ratio 1.2 (0.8-1.8); Bilirubin, Total 0.9 mg/dL (0.1-1.0); Bun/Creatinine Ratio 22.1 (12.0-20.0); Calcium, Blood 8.8 mg/dL (8.5-10.1); Creatinine, Blood 0.45 mg/dL (0.60-1.20); Globulin, Blood 2.8 g/dL (2.2-4.0); Magnesium, Blood 1.6 mg/dL (1.6-2.4); Phosphorus, Blood 3.7 mg/dL (2.5-4.9); Potassium, Blood 3.9 mmol/L (3.5-5.5); Total Protein, Blood 6.3 g/dL (6.4-8.2)
--- NOTE | 2024-02-10 06:37 | NUR ---
PATIENT AOX3. CIWA SCORES DECREASED OVERNIGHT FROM 10 TO 2. PRECEDEX TURNED OFF AND RESTRAINTS REMOVED. PATIENT IS CALM AND AGREEABLE. SR/SB AND NORMOTENSIVE. ROOM AIR. CHRISTOPHER IN PLACE.
--- NOTE | 2024-02-10 07:24 | NUR ---
ASSUMED CARE OF PT AT 0715 PT IS A/O X4, APOLOGETIC OF BEHAVIORS AND EAGER TO GET HOME AND "START MAKING MONEY" HAS RECENTLY BEEN FIRED FROM HIS JOB AND STATES HE NEVER WANTS TO GO THROUGH ALCOHOL WITHDRAWL AGAIN. APPRECIATIVE OF HOSPITAL STAFF AND ADMITS TO BEING EMBARASSED ABOUT HIS COMBATIVENESS. SR, BP WNL. 02 SAT 100% ON ROOM AIR. HAS BEEN SNACKING THROUGH THE NIGHT, NO ISSUES WITH SWALLOWING. LOOKING FORWARD TO BREAKFAST. CHRISTOPHER IN PLACE, DRAINING CLEAR YELLOW URINE. SKIN ON FACE RED AND FLAKY, PT STATES THIS IS HIS NORMAL AND WILL NOT IMPROVE WITHOUT MOISTURIZER THAT HE HAS AT HOME, SCATTERED BRUISING BUT OTHERWISE SKIN INTACT. PIV X2, NS @ 100 ML/HR. PRECEDEX DRIP OFF. WITHDRAWL SYMPTOMS HAVE BEEN MANAGED WITH PO LIBRIUM AND PRN ATIVAN IVP. NO FAMILY AT BEDSIDE. POC ONGOING.
--- NOTE | 2024-02-10 08:26 | NUR ---
CALL PLACED TO [facility] PT CAME TO HOSP WITHOUT BELONGINGS. HE IS REQUESTING [facility] BRING THEM TO THE HOSPITAL. CALL PLACED, SPOKE WITH STAFF MEMBER. THEY WILL ATTEMPT TO BRING BELONGINGS TO PT THIS AM BUT HAVE MINIMAL STAFF AT PRESENT. PT MAY DIP DYER BELONGINGS AT [facility] HIMSELF IF D/C HOME TODAY.
--- NOTE | 2024-02-10 12:17 | NUR ---
CALL TO DR. KAISER UPDATED ON PROGRESS THIS AM. PT HAS VOIDED 300 ML SINCE CHRISTOPHER REMOVED. HAS BEEN OOB AND AMBULATING IN ROOM. FINE TREMORS NOTED BUT NO OTHER S/S ETOH W/D. LIBRIUM 50 MG GIVEN ORDERED. [facility] VISITED WITH PT AT BEDSIDE, PAPERWORK SIGNED AND PT BELONGINGS RETURNED TO PT. HE HAS A F/U APPOINTMENT AT [facility] TOMORROW. PT WOULD LIKE TO D/C HOME. AGREEABLE TO D/C HOME WITH F/U AT [facility] TOMORROW. CALL PLACED TO LIDIA CATHERINE TO UPDATE HER ON D/C PLAN. SHE VERBALIZES UNDERSTANDING AND AGREEMENT. PT TO [facility] TER[facility] C[facility] SOCIAL WORKER D/C MEDS ON HIS WAY HOME. RIDE TO BE ARRANGED BY SAIDA BAI. POC ONGOING.
--- NOTE | 2024-02-10 14:50 | NUR ---
DISCHARGED HOME AT 1430 PRIOR TO D/C, CHRISTOPHER D/C'D AND PVR CHECKED REVEALING PVR OF 32ML AND 47 ML URINE. PT HAD VOIDED 400 ML CLEAR YELLOW URINE IMMEDIATELY PRIOR TO BLADDER SCAN. DISCHARGE INSTRUCTIONS REVIEWED WITH PT AT BEDSIDE AND SO OVER THE PHONE. ALL QUESTIONS ANSWERED. WRITTEN RX SENT WITH PT TO PHARMACY WITH VERBAL INSTRUCTIONS TO PROVIDE RX TO [facility] UPON ARRIVAL. FAXED MED ORDERS TO [facility] AND CALLED TO VERIFY RECIEPT OF FAX. FACESHEET FAXED WITH MED ORDERS. PHARMACY STAFF ADVISED PT DID NOT HAVE ID OR WALLET WITH HIM UPON D/C AND THEY STATED PT COULD [facility] SEAL MEDS WITH D/C PACKET FROM PHARMACY. PROVIDED ICU PHONE NUMBER SHOULD THERE BE ANY ISSUES AR[facility] PRIOR TO OR AFTER ARRIVAL HOME. CALLED [facility] TO CONFIRM PT WOULD BE SEEING A PRESCRIBING PROVIDER TOMORROW THAT COULD CONTINUE WITHDRAWL MEDICATIONS. IMPORTANCE OF KEEPING APPOINTMENT STRESSED TO PT AND SO PRIOR TO D/C HOME. PT TRANSPORTED TO [facility] VIA W/C WITH RN. JUAN F ALONSO TO TAKE PT TO [facility] PRIOR TO TAKING HIM HOME. BOTH PIVS REMOVED AND ALL PT BELONGINGS SENT WITH PT UPON D/C INCLUDING EXTRA CLOTHING AND BIBLE.
== END 2024-02-10 14:43 | disposition home or self-care (01) | DRG 897 ==
LOC: ER 00:12 → ICUE 00:17
PROVIDERS: Emergency Medicine; Internal Medicine; ADMIT Student in an Organized Health Care Education/Training Program
PROC: HZ2ZZZZ Detoxification Services for Substance Abuse Treatment (ICD-10-PCS; principal; 2024-02-08)
DX: F10.232 Alcohol dependence with withdrawal with perceptual disturbance (principal); K76.6 Portal hypertension; K70.30 Alcoholic cirrhosis of liver without ascites; D69.6 Thrombocytopenia, unspecified; D70.9 Neutropenia, unspecified; I10 Essential (primary) hypertension; E83.42 Hypomagnesemia; R33.9 Retention of urine, unspecified; Z87.891 Personal history of nicotine dependence; Z87.820 Personal history of traumatic brain injury
CPT/HCPCS: 36415; 51702; 80053; 81003; 82728; 82947; 83540; 83550; 83735; 84100; 85025; 85610; 93005; 93010; 94762; 96374; 96376; 99285-25; A9270; J2060; J2405; J3411; J3475; J7030; J7050; J7120

== ENCOUNTER 2024-04-07 16:57 | Emergency (ER) | payer OTHER ==
[~2024-04-07] VITALS: Ht 175.3 cm; Wt 81.7 kg
[~2024-04-07 16:57] MED LIST changes: +ALBU2.5V5 INH; +B-12 COMPL1000 MCG/2 IM; +CATAPRES0.1 MG PO; +FLUO10 PO; +FOLIC ACID0.4 MG PO; +GABA400 PO; +HYDPAM50 PO; +LORA2 PO; +METO25 PO; +TRAZ50 PO
[2024-04-07] MEDS ORDERED: Ondansetron HCl 2 MG / ML 2ML Vial IV ONE (17:40)
[2024-04-07] MEDS ORDERED: Droperidol 5 mg/2 ml Vial IV ONE (17:50)
[2024-04-07] MEDS ORDERED: ChlordiazePOXIDE 25 MG Cap PO PRN (17:55)
[2024-04-07 17:59] LABS: BASOPHILS ABSOLUTE AUTO 0.03 K/mm3 (0.00-0.23); BASOPHILS PERCENT AUTO 1 % (0-2); EOSINOPHILS ABSOLUTE AUTO 0.06 K/mm3 (0.00-0.68); EOSINOPHILS PERCENT AUTO 1 % (0-6); Hematocrit 43.6 % (37.0-53.0); Hemoglobin 14.7 g/dL (13.5-17.5); IMMATURE GRAN ABSOLUTE AUTO 0.02 K/mm3 (0.00-0.10); IMMATURE GRAN PERCENT AUTO 0 % (0-1); LYMPHOCYTES ABSOLUTE AUTO 1.63 K/mm3 (0.84-5.20); LYMPHOCYTES PERCENT AUTO 25 % (21-46); MONOCYTES PERCENT AUTO 8 % (4-13); Mean Corpuscular HGB 30.3 pg (26.0-34.0); Mean Corpuscular HGB Conc 33.7 g/dL (31.5-36.5); Mean Corpuscular Volume 90 fL (80-100); Mean Platelet Volume 9.6 fL (9.1-12.4); NEUTROPHILS ABSOLUTE AUTO 4.26 K/mm3 (1.96-9.15); NEUTROPHILS PERCENT AUTO 66 % (41-73); Platelet Count 111 K/mm3 (150-400); RDW Coefficient Variation 14.9 % (11.7-14.2); RDW Standard Deviation 48.7 fL (35.1-46.3); Red Blood Cell Count 4.85 M/mm3 (4.30-5.90)
[2024-04-07] MEDS ORDERED: Thiamine HCl 100 MG in NS 50 ML IV ONE (18:00)
[2024-04-07 18:41] LABS: Albumin/Globulin Ratio 1.2 (0.8-1.8); Bilirubin, Total 0.4 mg/dL (0.1-1.0); Bun/Creatinine Ratio 12.7 (12.0-20.0); Calcium, Blood 8.8 mg/dL (8.5-10.1); Creatinine, Blood 0.63 mg/dL (0.60-1.20); Globulin, Blood 3.3 g/dL (2.2-4.0); Potassium, Blood 3.9 mmol/L (3.5-5.5); Total Protein, Blood 7.3 g/dL (6.4-8.2)
[2024-04-07] MEDS ORDERED: Lactated Ringer's 1,000 ML IV ONE (20:45)
[2024-04-07 22:29] VITALS: BP 126/94
[2024-04-08] MEDS ORDERED: Folic Acid 1 MG in NS 50 ML IV SCH (09:00)
== END 2024-04-07 22:50 | disposition home or self-care (01) ==
LOC: ER 16:57
PROVIDERS: Emergency Medicine
DX: F10.129 Alcohol abuse with intoxication, unspecified (principal); Z87.891 Personal history of nicotine dependence; Z79.899 Other long term (current) drug therapy
CPT/HCPCS: 80053; 83690; 85025; 93005; 93010; 96361; 96365; 96375; 99285-25; A9270; J1790; J2405; J3411; J7120

== ENCOUNTER 2024-04-08 16:04 | Emergency (ER) | payer OTHER ==
[~2024-04-08] VITALS: Ht 177.8 cm; Wt 88.5 kg
[2024-04-08] MEDS ORDERED: Droperidol 5 mg/2 ml Vial IV ONE (16:20)
[2024-04-08] MEDS ORDERED: Lactated Ringer's 1,000 ML IV ONE (16:20)
[2024-04-08] MEDS ORDERED: ChlordiazePOXIDE 25 MG Cap PO ONE (16:25)
[2024-04-08] MEDS ORDERED: Thiamine HCl 100 MG in NS 50 ML IV ONE (16:25)
[2024-04-08] MEDS ORDERED: Folic Acid 1 MG in NS 50 ML IV ONE (16:25)
[2024-04-08 17:28] LABS: BASOPHILS ABSOLUTE AUTO 0.04 K/mm3 (0.00-0.23); BASOPHILS PERCENT AUTO 1 % (0-2); EOSINOPHILS ABSOLUTE AUTO 0.02 K/mm3 (0.00-0.68); EOSINOPHILS PERCENT AUTO 0 % (0-6); Hemoglobin 14.6 g/dL (13.5-17.5); IMMATURE GRAN ABSOLUTE AUTO 0.02 K/mm3 (0.00-0.10); IMMATURE GRAN PERCENT AUTO 0 % (0-1); LYMPHOCYTES ABSOLUTE AUTO 0.94 K/mm3 (0.84-5.20); LYMPHOCYTES PERCENT AUTO 13 % (21-46); MONOCYTES ABSOLUTE AUTO 0.36 K/mm3 (0.16-1.47); MONOCYTES PERCENT AUTO 5 % (4-13); Mean Corpuscular HGB 30.7 pg (26.0-34.0); Mean Corpuscular Volume 91 fL (80-100); Mean Platelet Volume 10.2 fL (9.1-12.4); NEUTROPHILS PERCENT AUTO 81 % (41-73); Platelet Count 91 K/mm3 (150-400); RDW Coefficient Variation 14.8 % (11.7-14.2); RDW Standard Deviation 49.5 fL (35.1-46.3); Red Blood Cell Count 4.75 M/mm3 (4.30-5.90); White Blood Cell Count 7.18 K/mm3 (4.00-11.30)
[2024-04-08 17:50] LABS: Albumin, Blood 4.4 g/dL (3.4-5.0); Albumin/Globulin Ratio 1.4 (0.8-1.8); Bilirubin, Total 0.7 mg/dL (0.1-1.0); Bun/Creatinine Ratio 12.2 (12.0-20.0); Calcium, Blood 8.6 mg/dL (8.5-10.1); Creatinine, Blood 0.74 mg/dL (0.60-1.20); Globulin, Blood 3.1 g/dL (2.2-4.0); Magnesium, Blood 1.5 mg/dL (1.6-2.4); Potassium, Blood 3.4 mmol/L (3.5-5.5); Total Protein, Blood 7.5 g/dL (6.4-8.2)
[2024-04-08 18:30] VITALS: BP 144/87
== END 2024-04-08 20:19 | disposition home or self-care (01) ==
LOC: ER 16:04
PROVIDERS: Physician Assistant
DX: F10.239 Alcohol dependence with withdrawal, unspecified (principal); I10 Essential (primary) hypertension; Z86.69 Personal history of other diseases of the nervous system and sense organs; Z87.891 Personal history of nicotine dependence; Z79.899 Other long term (current) drug therapy
CPT/HCPCS: 80053; 83690; 83735; 85025; 96365; 96368; 96375; 99285-25; A9270; J1790; J3411; J7120

== ENCOUNTER 2024-04-21 05:02 | Emergency (ER) | payer OTHER ==
[~2024-04-21] VITALS: Ht 175.3 cm; Wt 90.7 kg
[2024-04-21] MEDS ORDERED: NS 1,000 ML IV SCH (05:10)
[2024-04-21] MEDS ORDERED: Droperidol 5 mg/2 ml Vial IV ONE (05:15)
[2024-04-21 05:18] LABS: BASOPHILS ABSOLUTE AUTO 0.05 K/mm3 (0.00-0.23); BASOPHILS PERCENT AUTO 1 % (0-2); EOSINOPHILS ABSOLUTE AUTO 0.12 K/mm3 (0.00-0.68); EOSINOPHILS PERCENT AUTO 2 % (0-6); Hematocrit 41.2 % (37.0-53.0); Hemoglobin 14.1 g/dL (13.5-17.5); IMMATURE GRAN ABSOLUTE AUTO 0.02 K/mm3 (0.00-0.10); IMMATURE GRAN PERCENT AUTO 0 % (0-1); LYMPHOCYTES ABSOLUTE AUTO 2.18 K/mm3 (0.84-5.20); LYMPHOCYTES PERCENT AUTO 36 % (21-46); MONOCYTES ABSOLUTE AUTO 0.42 K/mm3 (0.16-1.47); MONOCYTES PERCENT AUTO 7 % (4-13); Mean Corpuscular HGB 31.2 pg (26.0-34.0); Mean Corpuscular HGB Conc 34.2 g/dL (31.5-36.5); Mean Corpuscular Volume 91 fL (80-100); Mean Platelet Volume 9.5 fL (9.1-12.4); NEUTROPHILS ABSOLUTE AUTO 3.27 K/mm3 (1.96-9.15); NEUTROPHILS PERCENT AUTO 54 % (41-73); Platelet Count 160 K/mm3 (150-400); RDW Coefficient Variation 15.7 % (11.7-14.2); RDW Standard Deviation 52.2 fL (35.1-46.3); Red Blood Cell Count 4.52 M/mm3 (4.30-5.90); White Blood Cell Count 6.06 K/mm3 (4.00-11.30)
[2024-04-21] MEDS ORDERED: Metoclopramide HCl 5MG / ML 2ML Vial IV ONE (05:55)
[2024-04-21 06:01] LABS: Albumin, Blood 4.1 g/dL (3.4-5.0); Albumin/Globulin Ratio 1.4 (0.8-1.8); Bilirubin, Total 0.4 mg/dL (0.1-1.0); Calcium, Blood 8.3 mg/dL (8.5-10.1); Creatinine, Blood 0.75 mg/dL (0.60-1.20); Potassium, Blood 4.2 mmol/L (3.5-5.5); Total Protein, Blood 7.1 g/dL (6.4-8.2)
[2024-04-21] MEDS ORDERED: Famotidine 10 MG/ML 2ML Vial IV ONE (06:50)
[2024-04-21] MEDS ORDERED: LORazepam 2 MG/ML 1ML Injection IV ONE (07:35)
[2024-04-21] MEDS ORDERED: PHENobarbital Sodium 65MG / ML 1ML Vial IV ONE (07:35)
[2024-04-21 08:32] VITALS: BP 124/85
== END 2024-04-21 08:33 | disposition home or self-care (01) ==
LOC: ER 05:02
PROVIDERS: Emergency Medicine
DX: F10.129 Alcohol abuse with intoxication, unspecified (principal); R10.9 Unspecified abdominal pain; I10 Essential (primary) hypertension; Z87.891 Personal history of nicotine dependence; Z79.899 Other long term (current) drug therapy
CPT/HCPCS: 74177; 80053; 83690; 85025; 96361; 96374-59; 96375; 99285-25; J1790; J2060; J2560; J2765; J7030; Q9967

== ENCOUNTER 2024-04-22 22:03 | Emergency (ER) | payer OTHER ==
[~2024-04-22] VITALS: Ht 175.3 cm; Wt 86.2 kg
[2024-04-22] MEDS ORDERED: Folic Acid 1 MG TAB PO ONE (22:45)
[2024-04-22] MEDS ORDERED: Ondansetron HCl 2 MG / ML 2ML Vial IV ONE (22:45)
[2024-04-22] MEDS ORDERED: Droperidol 5 mg/2 ml Vial IV ONE (22:45)
[2024-04-22] MEDS ORDERED: NS 1,000 ML IV SCH (22:45)
[2024-04-22] MEDS ORDERED: Thiamine HCl 100 MG in NS 50 ML IV ONE (22:45)
[2024-04-22 22:59] LABS: BASOPHILS PERCENT AUTO 1 % (0-2); EOSINOPHILS ABSOLUTE AUTO 0.01 K/mm3 (0.00-0.68); EOSINOPHILS PERCENT AUTO 0 % (0-6); Hematocrit 47.2 % (37.0-53.0); Hemoglobin 15.6 g/dL (13.5-17.5); IMMATURE GRAN ABSOLUTE AUTO 0.04 K/mm3 (0.00-0.10); IMMATURE GRAN PERCENT AUTO 0 % (0-1); LYMPHOCYTES PERCENT AUTO 9 % (21-46); MONOCYTES ABSOLUTE AUTO 0.56 K/mm3 (0.16-1.47); MONOCYTES PERCENT AUTO 4 % (4-13); Mean Corpuscular HGB 30.9 pg (26.0-34.0); Mean Corpuscular HGB Conc 33.1 g/dL (31.5-36.5); Mean Corpuscular Volume 94 fL (80-100); Mean Platelet Volume 9.5 fL (9.1-12.4); NEUTROPHILS ABSOLUTE AUTO 11.09 K/mm3 (1.96-9.15); NEUTROPHILS PERCENT AUTO 86 % (41-73); Platelet Count 225 K/mm3 (150-400); RDW Coefficient Variation 16.5 % (11.7-14.2); Red Blood Cell Count 5.05 M/mm3 (4.30-5.90)
[2024-04-22] MEDS ORDERED: Pantoprazole Sodium 40 MG Injection IV ONE (23:45)
[2024-04-22 23:55] LABS: Albumin, Blood 4.6 g/dL (3.4-5.0); Albumin/Globulin Ratio 1.4 (0.8-1.8); Bilirubin, Total 1.2 mg/dL (0.1-1.0); Bun/Creatinine Ratio 25.6 (12.0-20.0); Calcium, Blood 8.7 mg/dL (8.5-10.1); Creatinine, Blood 0.7 mg/dL (0.60-1.20); Globulin, Blood 3.4 g/dL (2.2-4.0); Magnesium, Blood 1.9 mg/dL (1.6-2.4); Potassium, Blood 4.2 mmol/L (3.5-5.5)
[2024-04-23 02:40] VITALS: BP 170/95
[2024-04-23] MEDS ORDERED: ChlordiazePOXIDE 25 MG Cap PO ONE (02:55)
== END 2024-04-23 03:07 | disposition home or self-care (01) ==
LOC: ER 22:03
PROVIDERS: Physician Assistant
DX: R45.851 Suicidal ideations (principal); F10.90 Alcohol use, unspecified, uncomplicated; M79.641 Pain in right hand; R10.9 Unspecified abdominal pain; I10 Essential (primary) hypertension; Z87.891 Personal history of nicotine dependence
CPT/HCPCS: 80053; 83690; 83735; 85025; 93005; 93010; 96361; 96365; 96366; 96375; 99285-25; A9270; C9113; J1790; J2405; J3411; J7030

== ENCOUNTER 2024-05-02 10:51 | Emergency (ER) | payer OTHER ==
[~2024-05-02] VITALS: Ht 175.3 cm; Wt 86.2 kg
[2024-05-02] MEDS ORDERED: NS 1,000 ML IV SCH ×2 (11:25→14:40)
[2024-05-02] MEDS ORDERED: Ondansetron HCl 2 MG / ML 2ML Vial IV ONE (11:25)
[2024-05-02 11:42] LABS: BASOPHILS ABSOLUTE AUTO 0.04 K/mm3 (0.00-0.23); BASOPHILS PERCENT AUTO 1 % (0-2); EOSINOPHILS ABSOLUTE AUTO 0.09 K/mm3 (0.00-0.68); EOSINOPHILS PERCENT AUTO 1 % (0-6); Hematocrit 48.2 % (37.0-53.0); Hemoglobin 16.1 g/dL (13.5-17.5); IMMATURE GRAN ABSOLUTE AUTO 0.04 K/mm3 (0.00-0.10); IMMATURE GRAN PERCENT AUTO 1 % (0-1); LYMPHOCYTES PERCENT AUTO 20 % (21-46); MONOCYTES ABSOLUTE AUTO 0.55 K/mm3 (0.16-1.47); MONOCYTES PERCENT AUTO 6 % (4-13); Mean Corpuscular HGB 31.3 pg (26.0-34.0); Mean Corpuscular HGB Conc 33.4 g/dL (31.5-36.5); Mean Corpuscular Volume 94 fL (80-100); Mean Platelet Volume 9.4 fL (9.1-12.4); NEUTROPHILS ABSOLUTE AUTO 6.32 K/mm3 (1.96-9.15); NEUTROPHILS PERCENT AUTO 71 % (41-73); Platelet Count 145 K/mm3 (150-400); RDW Coefficient Variation 16.9 % (11.7-14.2); RDW Standard Deviation 57.7 fL (35.1-46.3); Red Blood Cell Count 5.15 M/mm3 (4.30-5.90); White Blood Cell Count 8.84 K/mm3 (4.00-11.30)
[2024-05-02 12:14] LABS: Magnesium, Blood 2.3 mg/dL (1.6-2.4)
[2024-05-02 12:19] LABS: Albumin, Blood 4.5 g/dL (3.4-5.0); Albumin/Globulin Ratio 1.2 (0.8-1.8); Bilirubin, Total 0.5 mg/dL (0.1-1.0); Bun/Creatinine Ratio 17.1 (12.0-20.0); Calcium, Blood 8.6 mg/dL (8.5-10.1); Creatinine, Blood 0.76 mg/dL (0.60-1.20); Globulin, Blood 3.8 g/dL (2.2-4.0); Potassium, Blood 4.1 mmol/L (3.5-5.5); Total Protein, Blood 8.3 g/dL (6.4-8.2)
[2024-05-02 13:37] LABS: Influenza A, PCR NEGATIVE (NEGATIVE); Influenza B, PCR NEGATIVE (NEGATIVE); Resp Syncytial Virus, PCR NEGATIVE (NEGATIVE); SARS-Cov-2 (COVID-19) PCR, MMC NEGATIVE (NEGATIVE)
[2024-05-02] MEDS ORDERED: Droperidol 5 mg/2 ml Vial IV ONE (15:35)
[2024-05-02] MEDS ORDERED: Lidocaine 2% Viscous Soln 15 ML UDC PO ONE (15:35)
[2024-05-02] MEDS ORDERED: Mag Hydrox/AL Hydrox/Simeth 30 ML UDC PO ONE (15:35)
[2024-05-02] MEDS ORDERED: Atropine/Scopalam/Hyoscam/PB 5 ML UDC PO ONE (15:35)
[2024-05-02] MEDS ORDERED: CHLO25 PO ×2 (16:50→16:53)
[2024-05-02] MEDS ORDERED: Folic Acid 1 MG TAB PO ONE (17:00)
[2024-05-02] MEDS ORDERED: Thiamine HCl 100 MG Tab PO ONE (17:00)
[2024-05-02 17:10] VITALS: BP 161/91
== END 2024-05-02 17:10 | disposition home or self-care (01) ==
LOC: ER 10:51
PROVIDERS: Emergency Medicine; Physician Assistant
DX: F10.139 Alcohol abuse with withdrawal, unspecified (principal); R11.2 Nausea with vomiting, unspecified; Y90.8 Blood alcohol level of 240 mg/100 ml or more; R10.13 Epigastric pain; Z79.899 Other long term (current) drug therapy; I10 Essential (primary) hypertension; Z87.891 Personal history of nicotine dependence
CPT/HCPCS: 0241U; 80053; 83690; 83735; 85025; 93005; 93010; 96361; 96374; 96375; 99285-25; A9270; J1790; J2405; J7030

== ENCOUNTER 2024-06-08 01:16 | Emergency (ER) | payer OTHER ==
[~2024-06-08] VITALS: Ht 175.3 cm; Wt 86.2 kg
[2024-06-08] MEDS ORDERED: Ondansetron HCl 2 MG / ML 2ML Vial IV ONE (01:25)
[2024-06-08] MEDS ORDERED: Pantoprazole Sodium 40 MG Injection IV ONE (01:25)
[2024-06-08] MEDS ORDERED: NS 1,000 ML IV SCH (01:30)
[2024-06-08 01:32] LABS: BASOPHILS ABSOLUTE AUTO 0.05 K/mm3 (0.00-0.23); BASOPHILS PERCENT AUTO 1 % (0-2); EOSINOPHILS ABSOLUTE AUTO 0.16 K/mm3 (0.00-0.68); EOSINOPHILS PERCENT AUTO 2 % (0-6); Hemoglobin 16.1 g/dL (13.5-17.5); IMMATURE GRAN ABSOLUTE AUTO 0.02 K/mm3 (0.00-0.10); IMMATURE GRAN PERCENT AUTO 0 % (0-1); LYMPHOCYTES ABSOLUTE AUTO 3.14 K/mm3 (0.84-5.20); LYMPHOCYTES PERCENT AUTO 45 % (21-46); MONOCYTES ABSOLUTE AUTO 0.29 K/mm3 (0.16-1.47); MONOCYTES PERCENT AUTO 4 % (4-13); Mean Corpuscular HGB Conc 34.3 g/dL (31.5-36.5); Mean Corpuscular Volume 93 fL (80-100); Mean Platelet Volume 10.2 fL (9.1-12.4); NEUTROPHILS ABSOLUTE AUTO 3.39 K/mm3 (1.96-9.15); NEUTROPHILS PERCENT AUTO 48 % (41-73); Platelet Count 185 K/mm3 (150-400); RDW Coefficient Variation 14.8 % (11.7-14.2); RDW Standard Deviation 51.6 fL (35.1-46.3); Red Blood Cell Count 5.03 M/mm3 (4.30-5.90); White Blood Cell Count 7.05 K/mm3 (4.00-11.30)
[2024-06-08 01:57] LABS: International Normalized Ratio 1.08; Prothrombin Time Results 11.5 Sec (9.7-11.5)
[2024-06-08 02:13] LABS: Albumin, Blood 4.4 g/dL (3.4-5.0); Albumin/Globulin Ratio 1.4 (0.8-1.8); Bilirubin, Total 0.3 mg/dL (0.1-1.0); Bun/Creatinine Ratio 15.2 (12.0-20.0); Calcium, Blood 9.1 mg/dL (8.5-10.1); Creatinine, Blood 0.79 mg/dL (0.60-1.20); Globulin, Blood 3.2 g/dL (2.2-4.0); Total Protein, Blood 7.6 g/dL (6.4-8.2)
[2024-06-08] MEDS ORDERED: Haloperidol Lactate Inj. 5 MG/ML Injection IM ONE (02:20)
[2024-06-08 03:05] LABS: U Amphetamine Screen Not Detected; U Barbituate Screen Not Detected; U Benzodiazapine Screen DETECTED; U Buprenorphine Screen Not Detected; U Cannabinoids Screen DETECTED; U Cocaine Screen Not Detected; U Methadone Screen Not Detected; U Methamphetamine Screen Not Detected; U Opiates Screen Not Detected; U Oxycodone Screen Not Detected; U Phencyclidine Screen Not Detected
[2024-06-08 04:45] VITALS: BP 125/85
[2024-06-09] MEDS ORDERED: CHLO25 PO (22:30)
== END 2024-06-08 05:15 | disposition home or self-care (01) ==
LOC: ER 01:16
PROVIDERS: Emergency Medicine
DX: R11.2 Nausea with vomiting, unspecified (principal); F12.10 Cannabis abuse, uncomplicated; F10.129 Alcohol abuse with intoxication, unspecified; I10 Essential (primary) hypertension; Z87.891 Personal history of nicotine dependence; Z79.899 Other long term (current) drug therapy
CPT/HCPCS: 80053; 80320; 83690; 83735; 85025; 85610; 96361; 96372-59; 96374; 96375; 99284-25; J1630; J2405; J2470; J7030

== ENCOUNTER 2024-06-09 16:54 | Emergency (ER) | payer OTHER ==
[~2024-06-09] VITALS: Ht 175.3 cm; Wt 83.9 kg
[2024-06-09] MEDS ORDERED: Multivitamins 1 Tab PO ONE (17:20)
[2024-06-09] MEDS ORDERED: Ketorolac Tromethamine 15mg Vial IV ONE (17:20)
[2024-06-09] MEDS ORDERED: Ondansetron HCl 2 MG / ML 2ML Vial IV ONE (17:20)
[2024-06-09] MEDS ORDERED: Lactated Ringer's 1,000 ML IV ONE (17:20)
[2024-06-09] MEDS ORDERED: Diazepam 5 MG / ML 2ML SYR IV ONE (17:20)
[2024-06-09 18:14] LABS: BASOPHILS ABSOLUTE AUTO 0.04 K/mm3 (0.00-0.23); BASOPHILS PERCENT AUTO 0 % (0-2); EOSINOPHILS ABSOLUTE AUTO 0.02 K/mm3 (0.00-0.68); EOSINOPHILS PERCENT AUTO 0 % (0-6); Hematocrit 46.2 % (37.0-53.0); Hemoglobin 16.1 g/dL (13.5-17.5); IMMATURE GRAN ABSOLUTE AUTO 0.03 K/mm3 (0.00-0.10); IMMATURE GRAN PERCENT AUTO 0 % (0-1); LYMPHOCYTES ABSOLUTE AUTO 1.34 K/mm3 (0.84-5.20); LYMPHOCYTES PERCENT AUTO 15 % (21-46); MONOCYTES ABSOLUTE AUTO 0.41 K/mm3 (0.16-1.47); MONOCYTES PERCENT AUTO 4 % (4-13); Mean Corpuscular HGB 31.9 pg (26.0-34.0); Mean Corpuscular HGB Conc 34.8 g/dL (31.5-36.5); Mean Corpuscular Volume 92 fL (80-100); Mean Platelet Volume 9.3 fL (9.1-12.4); NEUTROPHILS ABSOLUTE AUTO 7.43 K/mm3 (1.96-9.15); NEUTROPHILS PERCENT AUTO 80 % (41-73); Platelet Count 166 K/mm3 (150-400); RDW Coefficient Variation 14.4 % (11.7-14.2); RDW Standard Deviation 48.7 fL (35.1-46.3); Red Blood Cell Count 5.05 M/mm3 (4.30-5.90); White Blood Cell Count 9.27 K/mm3 (4.00-11.30)
[2024-06-09 18:28] LABS: International Normalized Ratio 1.14; Prothrombin Time Results 12.1 Sec (9.7-11.5)
[2024-06-09 18:34] LABS: Albumin, Blood 4.9 g/dL (3.4-5.0); Albumin/Globulin Ratio 1.7 (0.8-1.8); Bilirubin, Total 0.6 mg/dL (0.1-1.0); Bun/Creatinine Ratio 14.3 (12.0-20.0); Calcium, Blood 9.5 mg/dL (8.5-10.1); Creatinine, Blood 0.7 mg/dL (0.60-1.20); Globulin, Blood 2.9 g/dL (2.2-4.0); Potassium, Blood 3.7 mmol/L (3.5-5.5); Total Protein, Blood 7.8 g/dL (6.4-8.2)
[2024-06-09] MEDS ORDERED: Droperidol 5 mg/2 ml Vial IV ONE (18:55)
[2024-06-09] MEDS ORDERED: CHLO25 PO (22:30)
[2024-06-09] MEDS ORDERED: LORazepam 2 MG/ML 1ML Injection IV ONE (22:30)
[2024-06-09] MEDS ORDERED: ChlordiazePOXIDE 25 MG Cap PO ONE (22:35)
[2024-06-09 22:44] VITALS: BP 165/104
== END 2024-06-09 22:49 | disposition home or self-care (01) ==
LOC: ER 16:54
PROVIDERS: Student in an Organized Health Care Education/Training Program
DX: F10.929 Alcohol use, unspecified with intoxication, unspecified (principal); G89.11 Acute pain due to trauma; W06.XXXA Fall from bed, initial encounter; Z79.899 Other long term (current) drug therapy; Z87.891 Personal history of nicotine dependence
CPT/HCPCS: 70450; 71260; 72125; 74177; 80053; 80320; 85025; 85610; 85730; 96361; 96374-59; 96375; 99284-25; A9270; J1790; J1885; J2405; J3360; J7120; Q9967

== ENCOUNTER 2024-06-25 12:12 | Inpatient (IN) | payer OTHER ==
[~2024-06-25] VITALS: Ht 175.3 cm; Wt 88.1 kg
[~2024-06-25 12:12] MED LIST changes: +SERT100 PO
[2024-06-25] MEDS ORDERED: Metoclopramide HCl 5MG / ML 2ML Vial IV ONE (13:00)
[2024-06-25] MEDS ORDERED: NS 1,000 ML IV SCH ×3 (13:00→18:25)
[2024-06-25 13:04] LABS: BASOPHILS ABSOLUTE AUTO 0.07 K/mm3 (0.00-0.23); BASOPHILS PERCENT AUTO 1 % (0-2); EOSINOPHILS ABSOLUTE AUTO 0.16 K/mm3 (0.00-0.68); EOSINOPHILS PERCENT AUTO 2 % (0-6); Hemoglobin 12.8 g/dL (13.5-17.5); IMMATURE GRAN ABSOLUTE AUTO 0.04 K/mm3 (0.00-0.10); IMMATURE GRAN PERCENT AUTO 1 % (0-1); LYMPHOCYTES ABSOLUTE AUTO 1.61 K/mm3 (0.84-5.20); LYMPHOCYTES PERCENT AUTO 20 % (21-46); MONOCYTES ABSOLUTE AUTO 0.54 K/mm3 (0.16-1.47); MONOCYTES PERCENT AUTO 7 % (4-13); Mean Corpuscular HGB 32.6 pg (26.0-34.0); Mean Corpuscular HGB Conc 33.7 g/dL (31.5-36.5); Mean Corpuscular Volume 97 fL (80-100); Mean Platelet Volume 9.1 fL (9.1-12.4); NEUTROPHILS ABSOLUTE AUTO 5.47 K/mm3 (1.96-9.15); NEUTROPHILS PERCENT AUTO 69 % (41-73); Platelet Count 181 K/mm3 (150-400); RDW Coefficient Variation 15.6 % (11.7-14.2); RDW Standard Deviation 55.2 fL (35.1-46.3); Red Blood Cell Count 3.93 M/mm3 (4.30-5.90); White Blood Cell Count 7.89 K/mm3 (4.00-11.30)
[2024-06-25 13:25] LABS: Albumin/Globulin Ratio 1.2 (0.8-1.8); Bilirubin, Total 0.7 mg/dL (0.1-1.0); Calcium, Blood 8.7 mg/dL (8.5-10.1); Creatinine, Blood 0.62 mg/dL (0.60-1.20); Globulin, Blood 3.4 g/dL (2.2-4.0); Potassium, Blood 3.8 mmol/L (3.5-5.5); Total Protein, Blood 7.4 g/dL (6.4-8.2)
[2024-06-25] MEDS ORDERED: Albuterol 2.5 MG/3 ML VIAL INH SCH (13:30)
[2024-06-25] MEDS ORDERED: Ondansetron HCl 2 MG / ML 2ML Vial IV ONE (14:30)
[2024-06-25] MEDS ORDERED: Trimethoprim/Sulfamethoxazole DS Tab PO ONE (15:25)
[2024-06-25] MEDS ORDERED: Cephalexin Monohydrate 500 MG Cap PO ONE (15:25)
[2024-06-25] MEDS ORDERED: Promethazine HCl 25 MG Tab PO ONE (15:30)
[2024-06-25] MEDS ORDERED: Diazepam 5 MG / ML 2ML SYR IV ONE (16:45)
[2024-06-25] MEDS ORDERED: ChlordiazePOXIDE 25 MG Cap PO PRN ×2 (18:20)
[2024-06-25] MEDS ORDERED: LORazepam 2 MG/ML 1ML Injection IV PRN ×2 (18:20→18:25)
[2024-06-25] MEDS ORDERED: FLU VACC TS2024-25(6MOS UP)/PF 45 MCG/0.5 ML SYRINGE IM SCH (18:30)
[2024-06-25] MEDS ORDERED: Albuterol 2.5 MG/3 ML VIAL INH PRN (18:30)
[2024-06-25] MEDS ORDERED: Ondansetron HCl 2 MG / ML 2ML Vial IV PRN (18:30)
[2024-06-25] MEDS ORDERED: ChlordiazePOXIDE 25 MG Cap PO ONE (19:00)
[2024-06-25 20:42] VITALS: BP 151/107
[2024-06-25] MEDS ORDERED: Ibuprofen 400 MG Tab PO PRN (20:50)
[2024-06-25] MEDS ORDERED: Cephalexin Monohydrate 500 MG Cap PO SCH (21:00)
[2024-06-25] MEDS ORDERED: Lactobacil 2-S.Thermo-Bifido 1 1 Cap PO SCH (21:00)
[2024-06-25] MEDS ORDERED: Famotidine 20 MG Tab PO SCH (21:00)
[2024-06-26 02:40] VITALS: BP 149/104
[2024-06-26 06:03] LABS: Bun/Creatinine Ratio 19.2 (12.0-20.0); Creatinine, Blood 0.68 mg/dL (0.60-1.20); Magnesium, Blood 1.7 mg/dL (1.6-2.4); Potassium, Blood 3.7 mmol/L (3.5-5.5)
--- NOTE | 2024-06-26 06:40 | NUR ---
PT ARRIVED TO FLOOR RESTLESS, NAUSEAS, AND PAINFUL. ADMISSION COMPLETED. SCORED 17 ON CIWA - 2MG ATIVAN ADMINISTERED, IBUPROFEN AND ZOFRAN ALSO ADMINITSTERED. PT WAS ABLE TO FALL ASLEEP, SCORED 4 ON FOLLOW-UP CIWA SCREENING. PT A&OX4, VSS ELEVATED BLOOD PRESSURES. NAUSEA IMPROVED AND PT WAS ABLE TO EAT A SNACK WITHOUT ISSUE.
[2024-06-26 07:22] VITALS: BP 139/102
[2024-06-26] MEDS ORDERED: Enoxaparin 40 MG/0.4 ML SYR SC SCH (09:00)
[2024-06-26] MEDS ORDERED: Multivitamins 1 Tab PO SCH (09:00)
[2024-06-26] MEDS ORDERED: Folic Acid 1 MG TAB PO SCH (09:00)
[2024-06-26] MEDS ORDERED: Thiamine HCl 100 MG Tab PO SCH (09:00)
[2024-06-26] MEDS ORDERED: Gabapentin 300 MG Cap PO SCH (10:00)
[2024-06-26 13:45] VITALS: BP 153/96
[2024-06-26] MEDS ORDERED: Ondansetron HCl 2 MG / ML 2ML Vial IV PRN (14:05)
[2024-06-26 15:18] VITALS: BP 118/79
[2024-06-26] MEDS ORDERED: Neurontin 300300 MG PO (17:11)
[2024-06-26] MEDS ORDERED: PANT20 PO (17:12)
[2024-06-26] MEDS ORDERED: Naltrexone HCl50 MG PO (17:13)
[2024-06-26] MEDS ORDERED: FEROSUL325 M1 PO (17:13)
--- NOTE | 2024-06-26 18:00 | NUR ---
SHIFT SUMMARY- PT ALERT AND ORIENTED. HE HAD AN EPISODE, SEEMINGLY OUT OF NOWHERE, HE STATED HE FELT FINE AND THEN SUDDENLY HE DIDN'T. CIWA SCORE WAS ABOUT 13. SPOKE TO ABOUT GIVING LIBRIUM AND GABAPENTIN AT THE SAME TIME. PT SEEMED TO BE GETTING WORSE, OPTED FOR IV ATIVAN, THAT WORKED WELL LAST NIGHT. BY THE TIME OF ADMINISTRATION OF THE ATIVAN ADMINISTRATION THE PT WAS BEGINNING TO MOVE TOWARDS A FULL BLOWN PANIC AND SYMPTOMS WERE PROGRESSING. CIWA SCORE WAS 21 AT THE TIME OF EASEMENT MAN. THE PT CALMED ABOUT 30 MINUTES AFTER THE ATIVAN AND WAS ABLE TO SLEEP FOR ABOUT AN HOUR. LAST CIWA SCORE WAS 3. PT IS CURRENTLY IN BED SITTING UP WATCHING SPORTS ON HIS PHONE. PT A&O X3, NO CURRENT S&S OF DISTRESS NOTED.
[2024-06-26 19:44] VITALS: BP 165/106
[2024-06-26] MEDS ORDERED: Albuterol HFA200 ACT/6.7 GM INH INH PRN (20:30)
[2024-06-26] MEDS ORDERED: Famotidine 20 MG Tab PO SCH (21:00)
[2024-06-27 03:58] VITALS: BP 137/93
[2024-06-27 05:39] LABS: Hematocrit 31.4 % (37.0-53.0); Hemoglobin 10.4 g/dL (13.5-17.5); Mean Corpuscular HGB 32.3 pg (26.0-34.0); Mean Corpuscular HGB Conc 33.1 g/dL (31.5-36.5); Mean Corpuscular Volume 98 fL (80-100); Mean Platelet Volume 9.1 fL (9.1-12.4); Platelet Count 100 K/mm3 (150-400); RDW Coefficient Variation 14.5 % (11.7-14.2); RDW Standard Deviation 51.5 fL (35.1-46.3); Red Blood Cell Count 3.22 M/mm3 (4.30-5.90); White Blood Cell Count 3.23 K/mm3 (4.00-11.30)
[2024-06-27 06:10] LABS: Magnesium, Blood 1.7 mg/dL (1.6-2.4)
[2024-06-27 06:19] LABS: Albumin, Blood 3.4 g/dL (3.4-5.0); Albumin/Globulin Ratio 1.2 (0.8-1.8); Bun/Creatinine Ratio 16.2 (12.0-20.0); Calcium, Blood 8.8 mg/dL (8.5-10.1); Creatinine, Blood 0.68 mg/dL (0.60-1.20); Globulin, Blood 2.9 g/dL (2.2-4.0); Potassium, Blood 3.9 mmol/L (3.5-5.5); Total Protein, Blood 6.3 g/dL (6.4-8.2)
--- NOTE | 2024-06-27 06:23 | NUR ---
PT FEELING BETTER, CIWA SCORES AT 1 DURING SHIFT, TOLERATING DIET, PO FLUID INTAKE LARGE, VSS. NO PRN MEDS REQUIRED.
[2024-06-27 07:13] VITALS: BP 139/95
[2024-06-27] MEDS ORDERED: Potassium Chl 20MEQ/Water100ML 100 ML IV SCH (13:00)
--- NOTE | 2024-06-27 16:46 | NUR ---
SHIFT SUMMARY PT IS A/OX4, INDEPENDENT IN THE ROOM. CIWAS AT A 1 THROUGHOUT THE MORNING, AND AN 7 LATER THIS AFTERNOON. AFTER LEARNING THAT THE PT WOULD NOT DISCHARGE TODAY, HE BECAME SLIGHTLY AGGRIVATED AND TEARFUL DUE TO BEING WORRIED ABOUT HIS CATS LEFT HOME ALONE AND NOT HAVING ANYBODY TO CALL TO CHECK UP ON THEM. PT HAS SCATTERED BRUISING ON THE SIDES ON THE ABDOMIN AND ON THE RIGHT GLUTEAL, WELL SUTURES ON THE RIGHT GLUTEAL FROM FALLS PRIOR TO ADMISSION, ONE OF WHICH HE CLAIMS TO HAVE FELL THROUGH A GLASS TABLE. PT IS ON RA, NO TELE. PT IS CURRENTLY SLEEPING IN BED. PT CALLS USING THE CALL LIGHT APPROPRIATELY.
[2024-06-27] MEDS ORDERED: HYDROcodone 5-APAP 325 TAB PO PRN (17:25)
--- NOTE | 2024-06-27 17:48 | NUR ---
PRECEPTOR NOTE: THIS DAY HAUL OR FARM CHARTER BUS DRIVER HAS REVIEWED AND AGREES c ALL NOTES AND ASSESSMENTS BY SAIDA RAMIREZ.
[2024-06-27 19:37] VITALS: BP 146/98
--- NOTE | 2024-06-28 03:08 | NUR ---
SHIFT SUMMARY: PT IS A 49 YEAR OLD FULL CODE WHO WAS ADMITTED FOR ETOH WITHDRAWL. PT IS A A&OX4 AND IND IN THE ROOM.PT HAS BRUISING ON ABDOMEN, LEG AND BUTTOCKS. PT IS PLEASANT BUT ANXIOUS AND WORRIED ABOUT HIS CATS AT HOME. PT REPORTS BLURRY VISION BECAUSE HE DOES NOT HAVE HIS GLASSES BECAUSE THEY BROKE WHEN HE FELL AT HOME INTO A GLASS TABLE. PT IS HOPING TO GO HOME TOMORROW TO BE WITH HIS CATS. PT HAS TREMORS THAT CAN BE FELT BUT NOT SEEN. PT USES CALL LIGHT APPROPRIATLY AND HAS BEEN RESTING.
[2024-06-28 04:35] VITALS: BP 142/100
[2024-06-28 05:43] LABS: Hematocrit 32.1 % (37.0-53.0); Hemoglobin 11.2 g/dL (13.5-17.5); Mean Corpuscular HGB 33.4 pg (26.0-34.0); Mean Corpuscular HGB Conc 34.9 g/dL (31.5-36.5); Mean Corpuscular Volume 96 fL (80-100); RDW Coefficient Variation 14.5 % (11.7-14.2); RDW Standard Deviation 50.4 fL (35.1-46.3); Red Blood Cell Count 3.35 M/mm3 (4.30-5.90); White Blood Cell Count 4.22 K/mm3 (4.00-11.30)
[2024-06-28 06:11] LABS: Mean Platelet Volume 9.7 fL (9.1-12.4); Platelet Count 94 K/mm3 (150-400)
[2024-06-28 06:13] LABS: Albumin, Blood 3.4 g/dL (3.4-5.0); Albumin/Globulin Ratio 1.2 (0.8-1.8); Bilirubin, Total 0.6 mg/dL (0.1-1.0); Bun/Creatinine Ratio 23.8 (12.0-20.0); Calcium, Blood 8.9 mg/dL (8.5-10.1); Creatinine, Blood 0.59 mg/dL (0.60-1.20); Globulin, Blood 2.9 g/dL (2.2-4.0); Total Protein, Blood 6.3 g/dL (6.4-8.2)
[2024-06-28 07:08] VITALS: BP 132/102
[2024-06-28] MEDS ORDERED: CEPH500 PO (09:48)
[2024-06-28] MEDS ORDERED: VISBIOME 112.51 EACH PO (09:49)
--- NOTE | 2024-06-28 11:53 | NUR ---
DISCHARGE PT A&O X4, COOPERATIVE, AND EXCITED TO GO HOME. IV WAS DC'D BY EBENEZER CINTRON. PT TOOK ONLY CLOTHES WITH HIM AND DISCHARGE PAPERWORK. NEW MEDS WERE FAXED TO [facility]. PT REPORTS HE WILL CALL A [facility] TO [facility] THEN TO HOME. PT WALKED DOWN TO PT ENTRANCE BY JOSE ANGEL CHAN.
== END 2024-06-28 11:48 | disposition home or self-care (01) | DRG 897 ==
LOC: ER 12:12 → MEDS 12:13 → ENPENDDIS 06-28 11:27 → MEDS 06-28 11:48
PROVIDERS: Nurse Practitioner Acute Care; Student in an Organized Health Care Education/Training Program; ADMIT Internal Medicine
PROC: HZ2ZZZZ Detoxification Services for Substance Abuse Treatment (ICD-10-PCS; principal; 2024-06-26)
DX: F10.239 Alcohol dependence with withdrawal, unspecified (principal); R45.851 Suicidal ideations; L03.115 Cellulitis of right lower limb; I10 Essential (primary) hypertension; J45.909 Unspecified asthma, uncomplicated; F32.A Depression, unspecified; K70.30 Alcoholic cirrhosis of liver without ascites; Z71.41 Alcohol abuse counseling and surveillance of alcoholic; Z91.81 History of falling; Z87.820 Personal history of traumatic brain injury; Z87.19 Personal history of other diseases of the digestive system; Z90.49 Acquired absence of other specified parts of digestive tract; Z98.890 Other specified postprocedural states; Z87.891 Personal history of nicotine dependence; Z79.899 Other long term (current) drug therapy
CPT/HCPCS: 36415; 70450; 71046; 72070; 72100; 72125; 73502; 80048; 80053; 83690; 83735; 85025; 85027; 94640; 94644; 94664; 94760; 96361; 96372; 96374; 96375; 96376; 99285-25; A9270; G0378; J1650; J2060; J2405; J2765; J3360; J3480; J7030

== ENCOUNTER 2024-07-08 02:51 | Inpatient (IN) | payer OTHER ==
[~2024-07-08] VITALS: Ht 175.3 cm; Wt 86.1 kg
[2024-07-08] VITALS (14 sets, daily range): BP systolic 129–171; BP diastolic 83–108
[~2024-07-08 02:51] MED LIST changes: +CEPH500 PO; +FEROSUL325 M1 PO; +Naltrexone HCl50 MG PO; +Neurontin 300300 MG PO; +PANT20 PO; +VISBIOME 112.51 EACH PO
[2024-07-08] MEDS ORDERED: NS 1,000 ML IV SCH (03:00)
[2024-07-08 03:34] LABS: BASOPHILS ABSOLUTE AUTO 0.05 K/mm3 (0.00-0.23); BASOPHILS PERCENT AUTO 1 % (0-2); EOSINOPHILS ABSOLUTE AUTO 0.13 K/mm3 (0.00-0.68); EOSINOPHILS PERCENT AUTO 3 % (0-6); Hematocrit 40.7 % (37.0-53.0); Hemoglobin 13.6 g/dL (13.5-17.5); IMMATURE GRAN ABSOLUTE AUTO 0.02 K/mm3 (0.00-0.10); IMMATURE GRAN PERCENT AUTO 0 % (0-1); LYMPHOCYTES ABSOLUTE AUTO 1.88 K/mm3 (0.84-5.20); LYMPHOCYTES PERCENT AUTO 38 % (21-46); MONOCYTES ABSOLUTE AUTO 0.27 K/mm3 (0.16-1.47); MONOCYTES PERCENT AUTO 5 % (4-13); Mean Corpuscular HGB 32.4 pg (26.0-34.0); Mean Corpuscular HGB Conc 33.4 g/dL (31.5-36.5); Mean Corpuscular Volume 97 fL (80-100); Mean Platelet Volume 8.9 fL (9.1-12.4); NEUTROPHILS ABSOLUTE AUTO 2.61 K/mm3 (1.96-9.15); NEUTROPHILS PERCENT AUTO 53 % (41-73); Platelet Count 178 K/mm3 (150-400); RDW Coefficient Variation 14.4 % (11.7-14.2); RDW Standard Deviation 51.7 fL (35.1-46.3); White Blood Cell Count 4.96 K/mm3 (4.00-11.30)
[2024-07-08 04:02] LABS: Salicylate 1.8 mg/dL (2.8-20.0)
[2024-07-08 04:09] LABS: Acetaminophen, Random <2.0 ug/mL (10.0-30.0); Alanine Aminotransfer (ALT/SGP 41 U/L (12-78); Albumin, Blood 4.1 g/dL (3.4-5.0); Albumin/Globulin Ratio 1.3 (0.8-1.8); Alk Phos 205 U/L (50-136); Anion Gap 15 mmol/L (3-11); Aspartate Aminotrans (AST/SGOT 68 U/L (12-37); Bilirubin, Total 0.3 mg/dL (0.1-1.0); Blood Urea Nitrogen 11 mg/dL (8-24); Bun/Creatinine Ratio 19.1 (12.0-20.0); CO2, Blood 25 mmol/L (21-32); Calcium, Blood 8.8 mg/dL (8.5-10.1); Chloride, Blood 110 mmol/L (98-108); Creatinine, Blood 0.58 mg/dL (0.60-1.20); Ethanol (Alcohol), Blood, Med 351 mg/dL; Globulin, Blood 3.2 g/dL (2.2-4.0); Glomerular Filtration Rate 120 (60-); Glucose, Blood 136 mg/dL (70-99); Potassium, Blood 4.1 mmol/L (3.5-5.5); Sodium, Blood 146 mmol/L (136-145); Total Protein, Blood 7.3 g/dL (6.4-8.2)
[2024-07-08] MEDS ORDERED: Ondansetron HCl 2 MG / ML 2ML Vial IV ONE ×2 (05:35→11:15)
[2024-07-08] MEDS ORDERED: LORazepam 2 MG/ML 1ML Injection IV ONE ×3 (07:35→14:05)
[2024-07-08] MEDS ORDERED: PHENobarbital Sodium 65MG / ML 1ML Vial IV ONE (07:35)
[2024-07-08] MEDS ORDERED: Mag Hydrox/AL Hydrox/Simeth 30 ML UDC PO ONE (10:55)
[2024-07-08] MEDS ORDERED: FLU VACC TS2024-25(6MOS UP)/PF 45 MCG/0.5 ML SYRINGE IM SCH (15:25)
[2024-07-08] MEDS ORDERED: LORazepam 1 MG Tab PO PRN ×2 (15:25→15:30)
[2024-07-08] MEDS ORDERED: ChlordiazePOXIDE 25 MG Cap PO PRN ×2 (15:25→15:30)
[2024-07-08] MEDS ORDERED: LORazepam 2 MG/ML 1ML Injection IV PRN ×2 (15:30)
[2024-07-08] MEDS ORDERED: Albuterol 2.5 MG/3 ML VIAL INH PRN (15:30)
[2024-07-08] MEDS ORDERED: Lactated Ringer's 1,000 ML IV SCH (15:40)
[2024-07-08] MEDS ORDERED: Folic Acid 1 MG in NS 50 ML IV SCH (16:00)
[2024-07-08] MEDS ORDERED: Thiamine HCl 100 MG in NS 50 ML IV SCH (16:00)
[2024-07-08] MEDS ORDERED: SERT50 PO (16:37)
[2024-07-08] MEDS ORDERED: Ondansetron HCl 2 MG / ML 2ML Vial IV PRN (16:55)
--- NOTE | 2024-07-08 18:43 | NUR ---
ICU ADMISSION / SHIFT SUMMARY: REPORT RECEIVED FROM SAIDA COBB IN ED. PT ARRIVED TO ICU-12 AT APPROX 1630. ON ARRIVAL, THE PT IS A&O TO ALL, ABLE TO STAND/ PIVOT TRANSFER FROM RNEY TO BED WITH 1 STAFF ASSIST. HE IS TREMULOUS & STS FEELING UNSTEADY - SEE CIWA. LS CLEAR, PT ON RA WITH O2 SATS > 92%. MONITOR SHOWS SR WITH HR 80-90s, BP STABLE. PT STS HAVING PERSISTANT NAUSEA, IMPROVED WITH PRN MEDS PER EMAR, IS TOLERATING CLEAR LIQUIDS WELL WITH NO EMESIS. NO URINARY VOID SINCE ADMIT, PER REPORT, HAS BEEN STANDING AT BEDSIDE WITH STAFF ASSIST TO USE URINAL. SKIN CONDITION OVERALL INTACT, PT ABLE TO REPOSITION SELF PRN FOR COMFORT. SMALL SCAB WITH SURROUNDING TISSUE REDNESS IS NOTED TO PT's RIGHT HIP, HE STS THIS IS FROM A FALL AT HOME APPROX 1 WK AGO IN WHICH HE "FELL THROUGH A GLASS TABLE." THE PT STS HE WAS NONCOMPLIANT WITH HIS HOME ABX REGIMEN & IS CONCERNED THAT THE WOUND MAY BE INFECTED. PHOTO TAKEN & PLACED IN CHART, DR VENTURA HAS BEEN NOTIFIED OF THIS WOUND & STS HE WILL FOLLOW-UP TOMORROW. NO ACUTE CHANGES SINCE ADMIT TO UNIT. CIWA 10 WITH MEDS PER EMAR. PT AGREEABLE TO TREATING ETOH W/D SYMPTOMS & HAS NO CURRENT SUICIDAL IDEATION, ALTHOUGH ACKNOWLEDGES THAT HE HAS BEEN DEPRESSED RECENTLY. WILL CONTINUE TO MONITOR & REPORT OFF TO ONCOMING RN.
--- NOTE | 2024-07-08 20:00 | NUR ---
ASSUMED CARE OF PT AT 1900. REPORT RECEIVED AT BEDSIDE. PT PRESENTS IN BED. ALERT AND ORIENTED. MILD ANXIOUSNESS NOTED. PT STATES THAT THERE IS 24 HOURS POST HIS LAST DRINK. IS FAMILIAR TO PROCESS OF GOING THROUGH ETOH WITHDRAWALS AND TO TREATMENT PLAN. WILL REVIEW CHART AND PLAN OF CARE FOR THIS PT.
[2024-07-09] VITALS (30 sets, daily range): BP systolic 98–174; BP diastolic 74–115
--- NOTE | 2024-07-09 00:33 | NUR ---
PT HAS BEEN MEDICATED WITH 50 MG LIBRIUM FOR W/D'S. PT ADMITS THAT HE HAS BEEN HALLUCINATING SEEING CATS IN HIS ROOM. PT ACKNOWLEDGES THAT THIS IS NOT REAL. NO FEAR ASSOCIATED WITH HALLUCINATIONS. CONTINUES ON BANANA BAG. HAS HAD SOME DIFFICULTIES WITH URINATION. HAS ATTEMPTED SEVERAL TIMES WITHOUT SUCCESS. DID DO BLADDER SCAN WHICH REVEALS ONLY 116 ML URINE. PT ACKNOWLEDGES. PT HAS BEEN UP TO BEDSIDE COMMODE WITH 1 PERSON ASSIST. HAS SMALL BOWEL MOVEMENT. HAS BEEN UP TO BEDSIDE CHAIR FOR APPROXIMATELY ONE HOUR. WILL CONTINUE TO MONITOR.
[2024-07-09] MEDS ORDERED: Melatonin 5 MG Tablet PO PRN (02:50)
[2024-07-09] MEDS ORDERED: Acetaminophen 325 MG TABLET PO PRN (02:50)
[2024-07-09 03:49] LABS: BASOPHILS ABSOLUTE AUTO 0.02 K/mm3 (0.00-0.23); BASOPHILS PERCENT AUTO 1 % (0-2); EOSINOPHILS ABSOLUTE AUTO 0.08 K/mm3 (0.00-0.68); EOSINOPHILS PERCENT AUTO 2 % (0-6); Hematocrit 34.9 % (37.0-53.0); Hemoglobin 11.8 g/dL (13.5-17.5); IMMATURE GRAN PERCENT AUTO 0 % (0-1); LYMPHOCYTES ABSOLUTE AUTO 0.92 K/mm3 (0.84-5.20); LYMPHOCYTES PERCENT AUTO 26 % (21-46); MONOCYTES ABSOLUTE AUTO 0.28 K/mm3 (0.16-1.47); MONOCYTES PERCENT AUTO 8 % (4-13); Mean Corpuscular HGB 32.9 pg (26.0-34.0); Mean Corpuscular HGB Conc 33.8 g/dL (31.5-36.5); Mean Corpuscular Volume 97 fL (80-100); Mean Platelet Volume 9.4 fL (9.1-12.4); NEUTROPHILS ABSOLUTE AUTO 2.27 K/mm3 (1.96-9.15); NEUTROPHILS PERCENT AUTO 64 % (41-73); Platelet Count 103 K/mm3 (150-400); RDW Coefficient Variation 14.1 % (11.7-14.2); RDW Standard Deviation 50.4 fL (35.1-46.3); Red Blood Cell Count 3.59 M/mm3 (4.30-5.90); White Blood Cell Count 3.57 K/mm3 (4.00-11.30)
[2024-07-09 04:01] LABS: Bun/Creatinine Ratio 11.2 (12.0-20.0); Calcium, Blood 8.4 mg/dL (8.5-10.1); Creatinine, Blood 0.62 mg/dL (0.60-1.20); Potassium, Blood 3.7 mmol/L (3.5-5.5)
[2024-07-09] MEDS ORDERED: Pantoprazole Sodium 40 MG Injection IV SCH (06:00)
--- NOTE | 2024-07-09 06:46 | NUR ---
PT CURRENTLY RESTING IN BED. HAS BEEN SOMEWHAT RESTLESS EARLIER IN AM. HAS BEEN MEDICATED WITH LIBRIUM SEVERAL TIMES, AND WITH 2 MG ATIVAN ONCE. AT THIS TIME, PT ABLE TO GET OUT OF BED WITH STANDBY ASSIST TO VOID. HAS HAD TRANSIENT MILD NAUSEA. PT HAS ENDORSED SEEING CATS IN HIS ROOM. CIWA 6-10. WILL CONTINUE TO MONITOR, AND WILL REPORT OFF TO ONCOMING RN.
[2024-07-09] MEDS ORDERED: Enoxaparin 40 MG/0.4 ML SYR SC SCH (09:00)
--- NOTE | 2024-07-09 11:22 | NUR ---
Spiritual care visit conducted. PAtient is lying in bed and alert. He talks at length about the struggles he has had with addiction and some of the factors that led to his habit, starting all the way back to his horrible childhood, and moving forward to the deaths, loss and personal conflicts he has experiened. He is tearful at times and understands that his drinking is killing him. We explore sources of meaning, value and purpose. We talk about what his best self looks like to him and what support he might be open to. He mentions that renee might need to be a component in his recovery as well and so we dig into that idea a little. I provided therapeutic listening and prayer. Patient repsonded well and showed signs of greater hope and desire to embrace a 30 day rehab.
[2024-07-09] MEDS ORDERED: Multivitamins/Minerals 1 Tab PO SCH (14:00)
--- NOTE | 2024-07-09 17:28 | NUR ---
SEE DOWNTIME CHARTING FOR ADDITIONAL NOTES. CHRISTIANO HAS BEEN UP AND ABOUT IN HIS ROOM THIS AFTERNOON, TAKING IN NUTRITION, HAD A SHOWER, DRINKING HOT TEA. PIV X2 IN RIGHT ARM/HAND BOTH PATENT AND C/D/I. PT DENIES ANY FURTHER N/V, PT VOIDS WELL USING URINAL. HAS NOT HAD ANY LIBRIUM SINCE MANAGER FRONT OFFICE. STATES HE FEELS GOOD, DOESN'T FEEL HE NEEDS IT. HE WILL AMBULATE TO PCU ROOM 1, REPORT GIVEN TO MARISSA ROTHMAN RN.
--- NOTE | 2024-07-09 17:45 | NUR ---
EN ROUTE TO PCU 1 WE RAN INTO , HE CAME ALONG AND EXAMINED THE WOUND TO THE RIGHT HIP. CESILIA SIZED BUT MORE ELONGATED SCAB WITH REDNESS SURROUNDING THE SCAB, BRUISES UP AND DOWN FROM MID FLANK TO KNEE FROM HIS PREVIOUS FALL. HE AMBULATED TO PCU ROOM 1 AND WAS STEADY AND WITHOUT COMPLAINTS.
[2024-07-10 03:23] VITALS: BP 117/78
[2024-07-10 03:54] LABS: Hematocrit 35.9 % (37.0-53.0); Hemoglobin 12.2 g/dL (13.5-17.5); Mean Corpuscular HGB 32.8 pg (26.0-34.0); Mean Corpuscular Volume 97 fL (80-100); Mean Platelet Volume 9.7 fL (9.1-12.4); Platelet Count 86 K/mm3 (150-400); RDW Coefficient Variation 13.7 % (11.7-14.2); RDW Standard Deviation 48.9 fL (35.1-46.3); Red Blood Cell Count 3.72 M/mm3 (4.30-5.90); White Blood Cell Count 3.94 K/mm3 (4.00-11.30)
[2024-07-10 04:15] LABS: Albumin, Blood 3.7 g/dL (3.4-5.0); Albumin/Globulin Ratio 1.4 (0.8-1.8); Bilirubin, Total 0.9 mg/dL (0.1-1.0); Calcium, Blood 8.7 mg/dL (8.5-10.1); Creatinine, Blood 0.62 mg/dL (0.60-1.20); Globulin, Blood 2.7 g/dL (2.2-4.0); Potassium, Blood 3.6 mmol/L (3.5-5.5); Total Protein, Blood 6.4 g/dL (6.4-8.2)
--- NOTE | 2024-07-10 05:15 | NUR ---
SHIFT SUMMARY PT A&O X4, ABLE TO MAKE NEEDS KNOWN AND CALLS APPROPRIATELY. COOPERATIVE WITH CARE. VSS, AFEBRILE, SPO2 >92% RA. CIWA SCORES 5-13, MEDICATED PER EMAR. NAUSEA AND PAIN MEDICATED PER EMAR. PT TOLERATING LIQUIDS AT THIS TIME. PT DENIES SI AT THIS TIME, ALTHOUGH STATES THAT HE IS DEPRESSED AND ANXIOUS DUE TO MANY LIFE STRESSORS. PT IS RESTING QUIETLY IN BED, BREATHING EVEN AND UNLABORED, CALL LIGHT IN REACH.
[2024-07-10] MEDS ORDERED: Pantoprazole Sodium 20 MG Tab PO SCH (06:00)
--- NOTE | 2024-07-10 07:45 | NUR ---
MORNING ASSESSMENT PT CIWA SCORE 2. PT VERBILIZED REASON WHY HE CAME INTO HOSPITAL AND STATES HE IS NO LONGER HAVING SI. HE VERBILIZED WANTING TO GO TO [facility] AFTER DISCHARGE AND PLAN TO CALL RAJESH FRAGOSO LATER TODAY ABOUT REHOMING HIS CATS.NO NAUSEA OR AGITATION AT THIS TIME. CALL LIGHT IN REACH AND WILL CONTINUE TO MONITOR.
[2024-07-10 07:50] VITALS: BP 121/95
[2024-07-10] MEDS ORDERED: Thiamine HCl 100 MG Tab PO SCH (09:00)
[2024-07-10] MEDS ORDERED: Folic Acid 1 MG TAB PO SCH (09:00)
[2024-07-10] MEDS ORDERED: Sertraline HCl 50 MG Tab PO SCH (09:00)
--- NOTE | 2024-07-10 09:30 | NUR ---
SHIFT NOTE PT STARTED SHOWING SIGNS OF AGITATION AND FEELING NAUSEATED. CIWA SCORE OF 8. GAVE PT LIBRIUM. AT THIS TIME PT STATED HE COULDN'T GET [facility] OR [facility] AND WAS GETTING FRUSTRATED. TALKED TO MONEY COUNTER ABOUT GETTING [facility], IMFORMED PT THEY WOULD ASSITS WITH THIS. WILL CONTINUE TO MONITOR.
[2024-07-10 11:34] VITALS: BP 125/93
[2024-07-10] MEDS ORDERED: Ondansetron HCl 2 MG / ML 2ML Vial IV PRN (11:55)
[2024-07-10 15:23] VITALS: BP 114/89
--- NOTE | 2024-07-10 16:34 | NUR ---
[facility] visit conducted. Patient is lying in bed and awake. He shares about his physical improvement but not as much mental/emotional improvement. He expresses his mistrust with the medical system, [facility], and people in general. He talks about the concerns he has about his belongings, possible eviction and his frustrations with [place]. I normalize his feelings, reinforce helpful attitudes and provided prayer. Patient reponded well and showed signs of an elevated mood. I will continue to remain available to patient and family.
--- NOTE | 2024-07-10 18:31 | NUR ---
SHIFT SUMMARY: Pt has done well this shift. CIWA has remained between 2-8. Was medicated with 50mg librium x1 when CIWA was 8. Pt has been somewhat flat and "depressed" throughout this shift. Having some anxiety about discharge planning. Has agreed to go to [facility] when they have an opening. Pt concerned about being discharged to home prior to going to [facility] where he is "surrounded by ETOH". Pt has also voiced concern about possibly being evicted from home, about his cats (which he plans to take to a nursing home). Pt also talked quite a bit today about failed relationships and how his girlfriend fo 14 years left him a few weeks ago. Tried to provide encouragement throughout the shift on taking it one day at a time and moving forward. Pt has denied feeling suicidal this shift, but is depressed. VSS throughout shift. Has been able to be up in room independently. Stable at this time. Will report to night rn.
[2024-07-10 19:30] VITALS: BP 125/88
[2024-07-10 23:18] VITALS: BP 132/95
[2024-07-11 03:39] LABS: Hematocrit 38.9 % (37.0-53.0); Hemoglobin 12.9 g/dL (13.5-17.5); Mean Corpuscular HGB 32.3 pg (26.0-34.0); Mean Corpuscular HGB Conc 33.2 g/dL (31.5-36.5); Mean Corpuscular Volume 98 fL (80-100); Mean Platelet Volume 10.2 fL (9.1-12.4); Platelet Count 92 K/mm3 (150-400); RDW Coefficient Variation 13.8 % (11.7-14.2); RDW Standard Deviation 49.2 fL (35.1-46.3); Red Blood Cell Count 3.99 M/mm3 (4.30-5.90); White Blood Cell Count 5.56 K/mm3 (4.00-11.30)
[2024-07-11 03:53] VITALS: BP 110/74
--- NOTE | 2024-07-11 05:42 | NUR ---
SHIFT SUMMARY PT A&O X4, ABLE TO MAKE NEEDS KNOWN AND CALLS APPROPRIATELY. COOPERATIVE WITH CARE. VSS, AFEBRILE, SPO2 >92% RA. CIWA SCORES 0-2 THIS SHIFT, PT REPORTS FEELING WELL TONIGHT, ALTHOUGH STATES THAT HE IS HAVING DIFFICULTY SLEEPING, MEDICATED PER EMAR. PT IS INDEPENDENT IN ROOM. HE IS RESTING QUIETLY IN BED, BREATHING EVEN AND UNLABORED, CALL LIGHT IN REACH.
[2024-07-11 10:02] VITALS: BP 134/94
[2024-07-11] MEDS ORDERED: ONE DAILY ESS400 MCG PO (13:42)
--- NOTE | 2024-07-11 14:26 | NUR ---
1430 PT D/C HOME D/C INSTRUCTIONS REVIEWED WITH PT AT BEDSIDE. ALL QUESTIONS ANSWERED AND SUPPORT PROVIDED. PT STATES HE HAS NO PHONE. WILL BE GOING TO BUY A PHONE AFTER D/C. PT WANTED TO GO STRAIGHT FROM HOSPITAL TO INPATIENT DRUG AND ALCOHOL TREATMENT BUT THAT WAS UNABLE TO BE ARRANGED PRIOR TO D/C. PT IS WILLING TO GO HOME AND ATTEMPT TO MAKE CALLS LOOKING FOR AVAILABILITY IN PROGRAMS THROUGHOUT THE STATE. UPON D/C PT IS A/O X4, NO S/S ETOH WITHDRAWL. V/S STABLE, ON ROOM AIR, EATING 100% OF ALL MEALS, DENIES ANY PAIN OR DISCOMFORT, VOIDING WITHOUT DIFFICULTY, ABLE TO ATTEND TO ALL ADL'S WITHOUT ASSISTANCE. PIV REMOVED, TIP INTACT, PT TOLERATED WELL. TEACHING DONE INCLUDING DISCONTINUING ETOH, SEEKING HELP WHEN HAVING URGES, SEEKING COUNSELING SERVICES. PT IS AGREEABLE BUT STATES HE IS UNLIKELY TO CONTINUE WITH HIS TREATMENT PLAN UNLESS IT IS ARRANGED FOR HIM. ENCOURAGEMENT PROVIDED. WALKED OUTSIDE TO AWAIT RIDE. TRANSPORTATION PROVIDED BY [facility] PAID FOR BY [facility].
== END 2024-07-11 14:15 | disposition home or self-care (01) | DRG 897 ==
LOC: ER 02:51 → PCU 15:22 → ICUE 15:22 → PCU 07-09 17:35
PROVIDERS: Emergency Medicine; ADMIT Family Medicine
DX: F10.239 Alcohol dependence with withdrawal, unspecified (principal); R45.851 Suicidal ideations; F32.A Depression, unspecified; K74.60 Unspecified cirrhosis of liver; I10 Essential (primary) hypertension; D69.6 Thrombocytopenia, unspecified; E86.0 Dehydration; D63.8 Anemia in other chronic diseases classified elsewhere; F10.229 Alcohol dependence with intoxication, unspecified; J45.909 Unspecified asthma, uncomplicated; Z79.899 Other long term (current) drug therapy; Z79.2 Long term (current) use of antibiotics; Z87.19 Personal history of other diseases of the digestive system; Z98.890 Other specified postprocedural states; Z90.49 Acquired absence of other specified parts of digestive tract; Z87.891 Personal history of nicotine dependence; Z87.820 Personal history of traumatic brain injury
CPT/HCPCS: 36415; 80048; 80053; 80320; 85025; 85027; 94760; 94762; 96361; 96374; 96375; 96376; 99285-25; A9270; G0480; J1650; J2060; J2405; J2470; J2560; J3411; J7030; J7120

== ENCOUNTER 2024-07-14 21:26 | Emergency (ER) | payer OTHER ==
[~2024-07-14] VITALS: Ht 175.3 cm; Wt 90.7 kg
[~2024-07-14 21:26] MED LIST changes: +ONE DAILY ESS400 MCG PO
[2024-07-14 22:13] LABS: BASOPHILS ABSOLUTE AUTO 0.04 K/mm3 (0.00-0.23); BASOPHILS PERCENT AUTO 1 % (0-2); EOSINOPHILS ABSOLUTE AUTO 0.15 K/mm3 (0.00-0.68); EOSINOPHILS PERCENT AUTO 3 % (0-6); Hematocrit 38.2 % (37.0-53.0); Hemoglobin 12.7 g/dL (13.5-17.5); IMMATURE GRAN ABSOLUTE AUTO 0.03 K/mm3 (0.00-0.10); IMMATURE GRAN PERCENT AUTO 1 % (0-1); LYMPHOCYTES ABSOLUTE AUTO 1.54 K/mm3 (0.84-5.20); LYMPHOCYTES PERCENT AUTO 29 % (21-46); MONOCYTES ABSOLUTE AUTO 0.54 K/mm3 (0.16-1.47); MONOCYTES PERCENT AUTO 10 % (4-13); Mean Corpuscular HGB 32.6 pg (26.0-34.0); Mean Corpuscular HGB Conc 33.2 g/dL (31.5-36.5); Mean Corpuscular Volume 98 fL (80-100); Mean Platelet Volume 9.6 fL (9.1-12.4); NEUTROPHILS ABSOLUTE AUTO 3.04 K/mm3 (1.96-9.15); NEUTROPHILS PERCENT AUTO 57 % (41-73); Platelet Count 116 K/mm3 (150-400); RDW Coefficient Variation 14.6 % (11.7-14.2); RDW Standard Deviation 52.9 fL (35.1-46.3); Red Blood Cell Count 3.89 M/mm3 (4.30-5.90); White Blood Cell Count 5.34 K/mm3 (4.00-11.30)
[2024-07-14 22:29] LABS: Albumin, Blood 4.1 g/dL (3.4-5.0); Albumin/Globulin Ratio 1.2 (0.8-1.8); Bilirubin, Total 0.3 mg/dL (0.1-1.0); Bun/Creatinine Ratio 24.5 (12.0-20.0); Calcium, Blood 8.3 mg/dL (8.5-10.1); Creatinine, Blood 0.61 mg/dL (0.60-1.20); Globulin, Blood 3.3 g/dL (2.2-4.0); Potassium, Blood 3.9 mmol/L (3.5-5.5); Total Protein, Blood 7.4 g/dL (6.4-8.2)
[2024-07-14] MEDS ORDERED: LORazepam 2 MG/ML 1ML Injection IV ONE ×2 (22:40→23:45)
[2024-07-14] MEDS ORDERED: NS 1,000 ML IV SCH (23:45)
[2024-07-15] MEDS ORDERED: Ketorolac Tromethamine 30mg Vial IV ONE (03:45)
[2024-07-15] MEDS ORDERED: Ondansetron HCl 2 MG / ML 2ML Vial IV ONE (03:45)
[2024-07-15] MEDS ORDERED: LORazepam 2 MG/ML 1ML Injection IV ONE (03:45)
[2024-07-15] MEDS ORDERED: ChlordiazePOXIDE 25 MG Cap PO ONE (05:30)
[2024-07-15 05:39] VITALS: BP 132/94
[2024-07-16] MEDS ORDERED: ONDA4ODT MM (10:58)
[2024-07-16] MEDS ORDERED: CHLO25 PO (10:58)
== END 2024-07-15 05:39 | disposition home or self-care (01) ==
LOC: ER 21:26
PROVIDERS: Emergency Medicine
DX: E86.0 Dehydration (principal); F10.90 Alcohol use, unspecified, uncomplicated; R11.0 Nausea; R40.4 Transient alteration of awareness; I10 Essential (primary) hypertension; Z87.891 Personal history of nicotine dependence; Z79.899 Other long term (current) drug therapy
CPT/HCPCS: 80053; 80320; 85025; 96374; 96375; 96376; 99285-25; A9270; J1885; J2060; J2405; J7030

== ENCOUNTER 2024-07-15 23:26 | Observation (INO) | payer OTHER ==
[~2024-07-15] VITALS: Ht 205.7 cm; Wt 81.7 kg
[2024-07-16] MEDS ORDERED: Ondansetron HCl 2 MG / ML 2ML Vial IV ONE (00:25)
[2024-07-16] MEDS ORDERED: NS 1,000 ML IV SCH (00:25)
[2024-07-16] MEDS ORDERED: NS 1,000 ML IV ONE (00:25)
[2024-07-16] MEDS ORDERED: Ondansetron HCl 2 MG / ML 2ML Vial ONE (00:25)
[2024-07-16 00:40] LABS: BASOPHILS ABSOLUTE AUTO 0.03 K/mm3 (0.00-0.23); BASOPHILS PERCENT AUTO 1 % (0-2); EOSINOPHILS ABSOLUTE AUTO 0.12 K/mm3 (0.00-0.68); EOSINOPHILS PERCENT AUTO 2 % (0-6); Hematocrit 36.8 % (37.0-53.0); Hemoglobin 12.4 g/dL (13.5-17.5); IMMATURE GRAN ABSOLUTE AUTO 0.02 K/mm3 (0.00-0.10); IMMATURE GRAN PERCENT AUTO 0 % (0-1); LYMPHOCYTES PERCENT AUTO 20 % (21-46); MONOCYTES ABSOLUTE AUTO 0.69 K/mm3 (0.16-1.47); MONOCYTES PERCENT AUTO 14 % (4-13); Mean Corpuscular HGB 32.6 pg (26.0-34.0); Mean Corpuscular HGB Conc 33.7 g/dL (31.5-36.5); Mean Corpuscular Volume 97 fL (80-100); Mean Platelet Volume 9.8 fL (9.1-12.4); NEUTROPHILS ABSOLUTE AUTO 3.16 K/mm3 (1.96-9.15); NEUTROPHILS PERCENT AUTO 63 % (41-73); Platelet Count 95 K/mm3 (150-400); RDW Coefficient Variation 14.4 % (11.7-14.2); RDW Standard Deviation 50.6 fL (35.1-46.3); White Blood Cell Count 5.02 K/mm3 (4.00-11.30)
[2024-07-16 00:58] LABS: Alanine Aminotransfer (ALT/SGP 29 U/L (12-78); Albumin/Globulin Ratio 1.2 (0.8-1.8); Alk Phos 152 U/L (50-136); Anion Gap 14 mmol/L (3-11); Aspartate Aminotrans (AST/SGOT 38 U/L (12-37); Bilirubin, Total 0.3 mg/dL (0.1-1.0); Blood Urea Nitrogen 17 mg/dL (8-24); Bun/Creatinine Ratio 28.9 (12.0-20.0); CO2, Blood 23 mmol/L (21-32); Calcium, Blood 8.8 mg/dL (8.5-10.1); Chloride, Blood 112 mmol/L (98-108); Creatinine, Blood 0.59 mg/dL (0.60-1.20); Globulin, Blood 3.2 g/dL (2.2-4.0); Glomerular Filtration Rate 120 (60-); Glucose, Blood 86 mg/dL (70-99); Potassium, Blood 3.9 mmol/L (3.5-5.5); Sodium, Blood 145 mmol/L (136-145); Total Protein, Blood 7.2 g/dL (6.4-8.2)
[2024-07-16] MEDS ORDERED: OLANZapine 10 MG Tab PO ONE (02:05)
[2024-07-16 02:31] LABS: Salicylate 1.8 mg/dL (2.8-20.0)
[2024-07-16 02:34] LABS: Acetaminophen, Random <2.0 ug/mL (10.0-30.0)
[2024-07-16] MEDS ORDERED: LORazepam 2 MG/ML 1ML Injection IV ONE (04:10)
[2024-07-16 10:34] VITALS: BP 145/95
[2024-07-16] MEDS ORDERED: ONDA4ODT MM (10:58)
[2024-07-16] MEDS ORDERED: CHLO25 PO (10:58)
[2024-07-16] MEDS ORDERED: Ondansetron 4 MG SoluTab SL ONE (11:20)
== END 2024-07-16 11:24 | disposition home or self-care (01) ==
LOC: ER 23:26 → EOR 23:27
PROVIDERS: ADMIT Emergency Medicine
DX: T50.902A Poisoning by unspecified drugs, medicaments and biological substances, intentional self-harm, initial encounter (principal); F10.129 Alcohol abuse with intoxication, unspecified; E86.0 Dehydration; I10 Essential (primary) hypertension; Z87.891 Personal history of nicotine dependence; Z79.899 Other long term (current) drug therapy; Z59.89 Other problems related to housing and economic circumstances; Z90.49 Acquired absence of other specified parts of digestive tract
CPT/HCPCS: 80053; 85025; 93005; 93010; 96374; 96375; 99285-25; A9270; G0378; G0480; J2060; J2405; J7030

== ENCOUNTER 2024-08-24 23:19 | Emergency (ER) | payer OTHER ==
[~2024-08-24] VITALS: Ht 175.3 cm; Wt 86.2 kg
[~2024-08-24 23:19] MED LIST changes: +Ondansetron HCl 2 MG / ML 2ML Vial ONE
[2024-08-24] MEDS ORDERED: Morphine Sulfate 4 MG/1 ML Injection IV ONE (23:30)
[2024-08-24] MEDS ORDERED: Ondansetron HCl 2 MG / ML 2ML Vial IV ONE (23:30)
[2024-08-24] MEDS ORDERED: NS 1,000 ML IV SCH (23:30)
[2024-08-24 23:34] LABS: BASOPHILS ABSOLUTE AUTO 0.03 K/mm3 (0.00-0.23); BASOPHILS PERCENT AUTO 0 % (0-2); EOSINOPHILS ABSOLUTE AUTO 0.13 K/mm3 (0.00-0.68); EOSINOPHILS PERCENT AUTO 1 % (0-6); Hematocrit 44.4 % (37.0-53.0); Hemoglobin 15.3 g/dL (13.5-17.5); IMMATURE GRAN ABSOLUTE AUTO 0.03 K/mm3 (0.00-0.10); IMMATURE GRAN PERCENT AUTO 0 % (0-1); LYMPHOCYTES ABSOLUTE AUTO 0.55 K/mm3 (0.84-5.20); LYMPHOCYTES PERCENT AUTO 5 % (21-46); MONOCYTES ABSOLUTE AUTO 0.47 K/mm3 (0.16-1.47); MONOCYTES PERCENT AUTO 5 % (4-13); Mean Corpuscular HGB 30.8 pg (26.0-34.0); Mean Corpuscular HGB Conc 34.5 g/dL (31.5-36.5); Mean Corpuscular Volume 89 fL (80-100); Mean Platelet Volume 10.9 fL (9.1-12.4); NEUTROPHILS ABSOLUTE AUTO 9.18 K/mm3 (1.96-9.15); NEUTROPHILS PERCENT AUTO 88 % (41-73); Platelet Count 150 K/mm3 (150-400); RDW Standard Deviation 42.6 fL (35.1-46.3); Red Blood Cell Count 4.97 M/mm3 (4.30-5.90); White Blood Cell Count 10.39 K/mm3 (4.00-11.30)
[2024-08-24 23:52] LABS: Alanine Aminotransfer (ALT/SGP 37 U/L (12-78); Albumin, Blood 4.4 g/dL (3.4-5.0); Albumin/Globulin Ratio 1.5 (0.8-1.8); Alk Phos 140 U/L (50-136); Anion Gap 14 mmol/L (3-11); Aspartate Aminotrans (AST/SGOT 30 U/L (12-37); Bilirubin, Total 0.6 mg/dL (0.1-1.0); Blood Urea Nitrogen 24 mg/dL (8-24); Bun/Creatinine Ratio 28.5 (12.0-20.0); CO2, Blood 25 mmol/L (21-32); Calcium, Blood 9.3 mg/dL (8.5-10.1); Chloride, Blood 106 mmol/L (98-108); Creatinine, Blood 0.84 mg/dL (0.60-1.20); Glomerular Filtration Rate 108 (60-); Glucose, Blood 137 mg/dL (70-99); Sodium, Blood 141 mmol/L (136-145); Total Protein, Blood 7.4 g/dL (6.4-8.2)
[2024-08-24 23:53] LABS: Source, Urine Clean Catch
[2024-08-24 23:59] LABS: Bilirubin, Urine Neg (Neg); Blood, Urine Neg (Neg); Glucose Qualitative, Urine Neg (Neg); Ketones, Urine Neg (Neg); Leukocyte Esterase, Urine Neg (Neg); Nitrite, Urine Neg (Neg); Protein, Urine Neg (Neg); Specific Gravity, Urine 1.005 (1.003-1.022); Urobilinogen, Urine NORM (Normal)
[2024-08-25 00:11] LABS: Appearance, Urine Clear (Clear); Color, Urine Yellow (P-Yellow)
[2024-08-25 00:22] LABS: Influenza A, PCR NEGATIVE (NEGATIVE); Influenza B, PCR NEGATIVE (NEGATIVE); Resp Syncytial Virus, PCR NEGATIVE (NEGATIVE); SARS-Cov-2 (COVID-19) PCR, MMC NEGATIVE (NEGATIVE)
[2024-08-25] MEDS ORDERED: Sod Phosphate/Sod Biphosphate 132 ML BTL PR ONE (01:05)
[2024-08-25] MEDS ORDERED: LORazepam 2 MG/ML 1ML Injection IV ONE (01:05)
[2024-08-25] MEDS ORDERED: DiphenhydrAMINE HCl 50 MG/ML 1ML Vial IV ONE (01:15)
[2024-08-25] MEDS ORDERED: Metoclopramide HCl 5MG / ML 2ML Vial IV ONE (01:15)
[2024-08-25 02:55] LABS: Ethanol (Alcohol), Blood, Med <3 mg/dL
[2024-08-25] MEDS ORDERED: DULCOLAX5 MG PO (03:12)
[2024-08-25] MEDS ORDERED: DOCU100 PO (03:13)
[2024-08-25 03:23] VITALS: BP 131/90
== END 2024-08-25 03:23 | disposition home or self-care (01) ==
LOC: ER 23:19
PROVIDERS: Student in an Organized Health Care Education/Training Program
DX: K59.00 Constipation, unspecified (principal); R11.2 Nausea with vomiting, unspecified; I10 Essential (primary) hypertension; Z87.891 Personal history of nicotine dependence; Z11.52 Encounter for screening for COVID-19; Z79.899 Other long term (current) drug therapy
CPT/HCPCS: 0241U; 74177; 76705; 80053; 80320; 81003; 83690; 84484; 85025; 93005; 93010; 96361; 96374-59; 96375; 99284-25; J1200; J2060; J2270; J2405; J2765; J7030; Q9967

== ENCOUNTER 2024-09-25 19:32 | Emergency (ER) | payer OTHER ==
[~2024-09-25] VITALS: Ht 177.8 cm; Wt 83.9 kg
[~2024-09-25 19:32] MED LIST changes: +DOCU100 PO; +DULCOLAX5 MG PO; -Ondansetron HCl 2 MG / ML 2ML Vial ONE
[2024-09-25] MEDS ORDERED: Diphth,Pertuss(Acell),Tet Vac 0.5 ML VIAL IM ONE (20:20)
[2024-09-25] MEDS ORDERED: Ziprasidone Mesylate 20 MG / Vial IM ONE (20:20)
[2024-09-25] MEDS ORDERED: Ondansetron HCl 2 MG / ML 2ML Vial IV ONE (20:45)
[2024-09-25 21:11] LABS: BASOPHILS ABSOLUTE AUTO 0.02 K/mm3 (0.00-0.23); BASOPHILS PERCENT AUTO 0 % (0-2); EOSINOPHILS ABSOLUTE AUTO 0.13 K/mm3 (0.00-0.68); EOSINOPHILS PERCENT AUTO 1 % (0-6); Hematocrit 43.6 % (37.0-53.0); Hemoglobin 14.9 g/dL (13.5-17.5); IMMATURE GRAN ABSOLUTE AUTO 0.04 K/mm3 (0.00-0.10); IMMATURE GRAN PERCENT AUTO 0 % (0-1); LYMPHOCYTES ABSOLUTE AUTO 1.37 K/mm3 (0.84-5.20); LYMPHOCYTES PERCENT AUTO 14 % (21-46); MONOCYTES ABSOLUTE AUTO 0.49 K/mm3 (0.16-1.47); MONOCYTES PERCENT AUTO 5 % (4-13); Mean Corpuscular HGB 30.2 pg (26.0-34.0); Mean Corpuscular HGB Conc 34.2 g/dL (31.5-36.5); Mean Corpuscular Volume 88 fL (80-100); Mean Platelet Volume 10.5 fL (9.1-12.4); NEUTROPHILS ABSOLUTE AUTO 7.44 K/mm3 (1.96-9.15); NEUTROPHILS PERCENT AUTO 78 % (41-73); Platelet Count 129 K/mm3 (150-400); RDW Standard Deviation 44.8 fL (35.1-46.3); Red Blood Cell Count 4.94 M/mm3 (4.30-5.90); White Blood Cell Count 9.49 K/mm3 (4.00-11.30)
[2024-09-25 21:23] LABS: International Normalized Ratio 1.01; Prothrombin Time Results 10.8 Sec (9.7-11.5)
[2024-09-25 21:35] LABS: Albumin, Blood 4.4 g/dL (3.4-5.0); Albumin/Globulin Ratio 1.3 (0.8-1.8); Bilirubin, Total 0.5 mg/dL (0.1-1.0); Calcium, Blood 9.7 mg/dL (8.5-10.1); Creatinine, Blood 0.92 mg/dL (0.60-1.20); Globulin, Blood 3.4 g/dL (2.2-4.0); Potassium, Blood 3.8 mmol/L (3.5-5.5); Total Protein, Blood 7.8 g/dL (6.4-8.2)
[2024-09-25] MEDS ORDERED: Ampicillin Sod/Sulbactam Sod 3 GM in NS 100 ML IV ONE (22:05)
[2024-09-25 22:30] VITALS: BP 115/75
[2024-09-25] MEDS ORDERED: LORazepam 2 MG/ML 1ML Injection ONE (22:40)
[2024-09-25] MEDS ORDERED: LORazepam 2 MG/ML 1ML Injection IV ONE ×2 (22:45)
== END 2024-09-25 22:53 | disposition short-term general hospital (02) ==
LOC: ER 19:32
PROVIDERS: Emergency Medicine
DX: S02.31XA Fracture of orbital floor, right side, initial encounter for closed fracture (principal); F10.129 Alcohol abuse with intoxication, unspecified; I10 Essential (primary) hypertension; J45.909 Unspecified asthma, uncomplicated; Z87.891 Personal history of nicotine dependence; Y04.8XXA Assault by other bodily force, initial encounter; Z79.899 Other long term (current) drug therapy
CPT/HCPCS: 70450; 70486; 72125; 73130; 80053; 80320; 85025; 85610; 90471; 90715; 96372-59; 96374; 96375; 99285-25; J0295; J2060; J2405; J3486